=== PATIENT | male | born 1935 | race Caucasian/White ===

== ENCOUNTER 2019-04-04 07:55 | Day surgery (SDC) | payer OTHER ==
--- NOTE | 2019-04-01 13:09 | RAD REPORT ---
EXAM DESCRIPTION: RAD - Chest Pa And Lat (2 Views) - 04/01/2019 1:03 pm CLINICAL HISTORY: left heart cath Chest pain. COMPARISON: Chest Pa And Lat (2 Views) dated 06/29/2018; Chest Pa And Lat (2 Views) dated 10/05/2017; Chest Pa And Lat (2 Views) dated 09/22/2017; Chest Pa And Lat (2 Views) dated 04/21/2017 FINDINGS: The lungs are clear. The heart is mildly enlarged in size. No displaced fractures. Aortic atherosclerosis. IMPRESSION: Mild cardiomegaly.
[2019-04-01 13:22] LABS: Absolute Lymphocytes (CBC) 1.4 K/uL (0.7-4.9); Basophils % 0.8 % (0-1.3); Eosinophils % 2.9 % (0-4.4); Hematocrit 43.1 % (39.6-49.0); Lymphocytes % 20.8 % (15.3-44.8); MPV 8.5 fL (7.6-11.3); RBC Red Blood Cell Count 4.89 M/uL (4.33-5.43)
[2019-04-01 13:30] LABS: Protime INR 0.93
[2019-04-01 13:37] LABS: Potassium 4.3 mmol/L (3.5-5.1)
--- NOTE | 2019-04-02 09:59 | EKG ---
Test Date: 2019-04-01 Test Time: 12:57:46 Gas Meter Reader: [place] MEASUREMENT RESULTS: Intervals: Rate: 61 MS: 166 QRSD: 84 QT: 434 QTc: 436 Proctor: P: 60 MS: 166 QRS: 31 T: 31 INTERPRETIVE STATEMENTS: Normal sinus rhythm Normal ECG Compared to ECG 11/08/2016 22:22:53 Left bundle-branch block no longer present Electronically Signed On 04-02-19 09:58:03 CDT by Nik Burnett
[2019-04-04 09:32] VITALS: TEMP 97.2
[2019-04-04] MEDS ORDERED: NA CHLORIDE 0.9% 500 ML ONE (09:32)
[2019-04-04] MEDS ORDERED: HEPA 1000U/500MLS 2,000 UNIT/1,000 ML BAG IV ONE (10:02)
[2019-04-04] MEDS ORDERED: HEPARIN 5000 UNIT/ML 1 ML VIAL ONE (10:09)
[2019-04-04] MEDS ORDERED: NICARDIPINE HCL 25 MG/10 ML IV ONE (10:10)
[2019-04-04] MEDS ORDERED: ATROPINE SULF 1 MG/10 ML SYR IV ONE (10:10)
[2019-04-04] MEDS ORDERED: NITROGLYCERIN 100 MCG/ML SYR (for cath lab use only) IV ONE (10:10)
[2019-04-04] MEDS ORDERED: MIDAZOLAM HCL 2 MG/2 ML INJ ONE (10:10)
[2019-04-04] MEDS ORDERED: FENTANYL CITR 100 MCG/2 ML ONE (10:10)
[2019-04-04] MEDS ORDERED: NA CHLORIDE 0.9% 0 ML ONE (10:10)
[2019-04-04 12:23] VITALS: O2SAT 97
[2019-04-04 13:28] VITALS: BP 128/50
--- NOTE | 2019-04-04 22:17 | OP ---
Surgeon: Nik Burnett MD Primary Care Doctor: Alber Whitfield MD Procedures: Left heart catheterization with coronary and left ventricular angiography. Findings: The patient's right coronary stent placed before 2009 is widely patent. There is 20% to 3 0% in-stent restenosis, not progressive. Has normal left main, normal LAD. His proximal circumflex and obtuse marginal are free of any disease. The very distal portion of the circumflex is totally oc cluded. It is a 1 mm vessel and not amenable to stenting. Procedure In Detail: The patient was brought to the cardiac cathode ray tube assembler in a fasting state, sedated wit h Versed and fentanyl. Prepared and draped in usual sterile fashion. Right radial approach was used after anesthetizing the skin over the right radial artery with 1% lidocaine. We entered the artery with a 21-gauge needle, cannulated it with a 0.021 inch diameter guidewire and placed a 6-Beninese Teru mo sheath. As soon as the sheath was in place, it was flushed and the radial cocktail consisting of nicardipine, heparin, and nitroglycerin. We guided a TIG catheter into the ascending aorta using flu oroscopy and a short radius J-tip. We angiogrammed right coronary, left coronary, and left ventricle , all with the same catheter. When the decision was made not to do any intervention, we removed the catheter over a J-wire, flushed the sheath, removed the sheath, and closed the arteriotomy using a TR band. Estimated Blood Loss: 5 cc. Repairing Calibrator: Annalisa Degroot. Recommendation: Continued medical therapy for CAD, hypertension, and dyslipidemia. ALEJANDRA/RASHAUN Voice ID: [id number] Report ID: [id number]
== END 2019-04-04 13:45 | disposition home or self-care (01) ==
LOC: CCL 07:55
PROVIDERS: ATTEND Internal Medicine
DX: I25.10 Atherosclerotic heart disease of native coronary artery without angina pectoris (principal); I25.82 Chronic total occlusion of coronary artery; T82.855A Stenosis of coronary artery stent, initial encounter; I10 Essential (primary) hypertension; E78.5 Hyperlipidemia, unspecified; Z95.5 Presence of coronary angioplasty implant and graft; Z87.891 Personal history of nicotine dependence; Z88.6 Allergy status to analgesic agent
CPT/HCPCS: 93005; 85025; 80048; 36415; 85610; 85730; 71046; 93458; C1893; J1644; J2250; J3010; J0583

== ENCOUNTER 2019-11-25 09:15 | Emergency (ER) | payer OTHER ==
[2019-11-25] MEDS ORDERED: DIAZEPAM 5 MG TABLET ONE (10:07)
[2019-11-25] MEDS ORDERED: HYDROCODONE/APAP 5/325 MG TAB ONE (10:08)
--- NOTE | 2019-11-25 10:34 | RAD REPORT ---
EXAM DESCRIPTION: RAD - Chest Single View - 11/25/2019 10:06 am CLINICAL HISTORY: cough, back pain Chest pain. COMPARISON: Chest Pa And Lat (2 Views) dated 04/01/2019; Chest Pa And Lat (2 Views) dated 06/29/2018; Chest Pa And Lat (2 Views) dated 10/05/2017; Chest Pa And Lat (2 Views) dated 09/22/2017 FINDINGS: Portable technique limits examination quality. Mild interstitial pulmonary edema. The heart is moderately enlarged with a tortuous atherosclerotic t horacic aorta. No displaced fractures. IMPRESSION: Mild CHF.
--- NOTE | 2019-11-25 12:34 | RAD REPORT ---
EXAM DESCRIPTION: CT - Angio Aorta For Dissection - 11/25/2019 12:20 pm CLINICAL HISTORY: Chest pain radiating to the back. right sided thoracic pain COMPARISON: No comparisons TECHNIQUE: CT angiography of the aorta was performed with MIPs. All CT scans are performed using dose optimization technique as appropriate and may include automated exposure control or mA/KV adjustment according to patient size. FINDINGS: A left aortic arch is present with normal branching pattern of the great vessels.No acute aortic finding is seen such as aneurysm, penetrating ulcer or dissection. The celiac axis, SMA, DON and renal arteries demonstrate moderate ostial plaquing but remain patent. No evidence of pulmonary embolism. Mild diffuse COPD is present. No nodule, mass or infiltrate. The liver demonstrates no focal mass or biliary dilatation.Cholecystectomy clips.The spleen, pancreas , adrenal glands and kidneys are within normal limits for arterial phase imaging. No bowel obstruction, free fluid or abscess.No pathologic enlarged lymphadenopathy identified. Moderate lower lumbar degenerative changes are present with postsurgical laminectomy noted at L4. Mil d 4 mm degenerative anterolisthesis is present of L4 on 5.Small fat containing left inguinal hernia. IMPRESSION: No acute aortic finding is demonstrated.
--- NOTE | 2019-11-25 12:43 | ER ---
Nurse's Notes [facility] Name: Severino Sawant Age: 84 yrs Sex: Male : 1935 Arrival Date: 11/25/2019 Time: 09:17 Bed 14 Private MD: Diagnosis: Strain of muscle and tendon of back wall of thorax Presentation: 11/24 09:28 Chief complaint: Patient states: R SHOULDER AND NECK MUSCLE TIGHTNESS x3 DAYS. bp Coronavirus screen: The patient has NOT traveled to a country currently being monitored by the [facility] within the last 14 days. The patient has NOT had contact with any known and/or suspected case of coronavirus. Proceed with normal triage procedures. Ebola Screen: No symptoms or risks identified at this time. Acute neurological deficit: none identified. Initial Sepsis Screen: Does the patient meet any 2 criteria? No. Patient's initial sepsis screen is negative. Does the patient have a suspected source of infection? No. Patient's initial sepsis screen is negative. Risk Assessment: Do you want to hurt yourself or someone else? Patient reports no desire to harm self or others. 09:28 Method Of Arrival: Ambulatory bp 09:28 Acuity: PHILL 4 bp Triage Assessment: 09:32 General: Appears in no apparent distress. comfortable, Behavior is calm, cooperative, bp appropriate for age. Pain: Complains of pain in back of neck and right scapular area. EENT: No deficits noted. Neuro: No deficits noted. Cardiovascular: No deficits noted. Respiratory: No deficits noted. GI: No signs and/or symptoms were reported involving the gastrointestinal system. : No signs and/or symptoms were reported regarding the genitourinary system. Derm: No deficits noted. Musculoskeletal: Circulation, motion, and sensation intact. Range of motion: intact in all extremities. Historical: - Allergies: 09:32 Morphine; bp - Home Meds: 09:32 fluticasone inhalation inhalation [Active]; gabapentin 600 mg Oral tab every 6 hours bp [Active]; doxazosin 2 mg oral tab [Active]; amlodipine 5 mg oral tab 1 tab once daily [Active]; levothyroxine 112 mcg oral tab 1 tab once daily [Active]; Lasix 40 mg Oral tab 1 tab once daily [Active]; aspirin 81 mg Oral chew 2 tabs once daily [Active]; - PMHx: 09:32 Hypertension; Hypothyroidism; UT; neuropathy; reflux; bp - Immunization history:: Adult Immunizations up to date. - Social history:: Smoking status: unknown. Screenin:33 Abuse screen: Denies threats or abuse. Denies injuries from another. Nutritional bp screening: No deficits noted. Tuberculosis screening: No symptoms or risk factors identified. Fall Risk None identified. Assessment: 09:33 General: SEE TRIAGE NOTE. Neuro: Level of Consciousness is awake, alert, obeys bp commands, Oriented to person, place, time, situation, Appropriate for age Gait is steady. 10:10 Reassessment: CXR COMPLETED, DISPO PENDING. bp 11:00 Reassessment: MARKED RELIEF OF S/S, PT SLEEPING. bp 12:04 Reassessment: PT RESTING QUIETLY, NO ACUTE S/S. CT PENDING. bp 12:26 Reassessment: PT RETURNED FROM CT. bp 13:14 Reassessment: PT D/C HOME AMBULATORY, DX WITH MUSCLE STRAIN. bp Vital Signs: 09:28 BP 160 / 55; Pulse 78; Resp 16; Temp 98.6; Pulse Ox 99% ; bp 10:04 BP 160 / 55 LA; Pulse 65; Resp 16; Pulse Ox 99% ; bp 10:07 BP 160 / 64 RA; Pulse 73; Resp 16; Pulse Ox 95% ; bp 11:06 BP 155 / 55; Pulse 63; Resp 16; Temp 98.3(TE); Pulse Ox 98% on R/A; mh5 12:04 BP 152 / 62; Pulse 64; Resp 16; Pulse Ox 96% ; bp 13:14 BP 158 / 53; Pulse 59; Resp 16; Temp 98.3; Pulse Ox 95% ; bp ED Course: 09:17 Patient arrived in ED. ag5 09:28 Jj Braun, RN is Primary Nurse. bp 09:29 Triage completed. bp 09:30 Yordy Salazar PA is PHCP. jmm 09:30 Beka Sanchez MD is Attending Physician. jmm 09:32 Arm band placed on. bp 09:33 Patient has correct armband on for positive identification. Bed in low position. Call bp light in reach. Side rails up X2. 11:44 Inserted saline lock: 18 gauge in right antecubital area, using aseptic technique. mh5 Blood collected. 11:45 Creatinine for Radiology [facility] 13:14 No provider procedures requiring assistance completed. IV discontinued, intact, bp bleeding controlled, No redness/swelling at site. Pressure dressing applied. Administered Medications: 10:00 Drug: [place] 5 mg-325 mg 1 tabs Route: PO; bp 11:33 Follow up: Response: Marked relief of symptoms; Pain is decreased bp 10:00 Drug: Valium 5 mg Route: PO; bp 11:34 Follow up: Response: Pain is decreased bp Outcome: 12:42 Discharge ordered by . marcial 13:16 Discharged to home ambulatory. bp 13:16 Condition: stable 13:16 Discharge instructions given to patient, Instructed on discharge instructions, follow up and referral plans. medication usage, Demonstrated understanding of instructions, follow-up care, medications, Prescriptions given X 1. 13:16 Patient left the ED. bp Signatures: Yordy Salazar PA PA jmm Martinez, Maria [facility] Jj Braun, RN RN Charles Zhao 5
--- NOTE | 2019-11-25 12:43 | EDPHYS ---
Physician Documentation [facility] Name: Severino Sawant Age: 84 yrs Sex: Male : 1935 Arrival Date: 11/25/2019 Time: 09:17 Bed 14 Private MD: ED Physician Beka Sanchez HPI: 11/24 09:34 This 84 yrs old Male presents to ER via Ambulatory with complaints of Cough, jmm Neck Pain, >24Hrs Old, Hand Pain. 09:34 The patient presents with pain that is acute. The symptoms are located in the right jmm scapular area. Onset: The symptoms/episode began/occurred 3 day(s) ago. Associated signs and symptoms: Pertinent negatives: abdominal pain, chest pain, fever. This is an 84 year old male with a history of HTN that presents to the ED with complaints of right upper back pain which began after a coughing fit 3 days ago. Patient states this occurs regularly about once a year. Patient also complaints of pain to his right thumb. 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 Patient denies chest pain, denies "tearing" sensation. Pain is worsened with movement of his right arm. . Historical: - Allergies: 09:32 Morphine; bp - Home Meds: 09:32 fluticasone inhalation inhalation [Active]; gabapentin 600 mg Oral tab every 6 hours bp [Active]; doxazosin 2 mg oral tab [Active]; amlodipine 5 mg oral tab 1 tab once daily [Active]; levothyroxine 112 mcg oral tab 1 tab once daily [Active]; Lasix 40 mg Oral tab 1 tab once daily [Active]; aspirin 81 mg Oral chew 2 tabs once daily [Active]; - PMHx: 09:32 Hypertension; Hypothyroidism; PR; neuropathy; reflux; bp - Immunization history:: Adult Immunizations up to date. - Social history:: Smoking status: unknown. ROS: 09:34 Constitutional: Negative for fever, chills, and weight loss, Cardiovascular: Negative jmm for chest pain, palpitations, and edema, Respiratory: Negative for shortness of breath, cough, wheezing, and pleuritic chest pain. 09:34 Back: Positive for pain with movement. 09:34 MS/extremity: Positive for pain. 09:34 All other systems are negative. Exam: 09:34 Constitutional: This is a well developed, well nourished patient who is awake, alert, jmm and in no acute distress. Head/Face: atraumatic. Eyes: EOMI, no conjunctival erythema appreciated ENT: Moist Mucus Membranes Neck: Trachea midline, Supple Chest/axilla: Normal chest wall appearance and motion. Cardiovascular: Regular rate and rhythm. No edema appreciated Respiratory: Normal respirations, no respiratory distress appreciated Abdomen/GI: Non distended, soft 09:34 Back: pain, that is moderate, ROM is painful, CVA tenderness, is absent, vertebral tenderness, is not appreciated. 09:34 Musculoskeletal/extremity: ROM: intact in all extremities. 09:34 Neuro: Orientation: is normal, Mentation: is normal, Memory: is normal. 09:34 Psych: Behavior/mood is pleasant, cooperative. Vital Signs: 09:28 BP 160 / 55; Pulse 78; Resp 16; Temp 98.6; Pulse Ox 99% ; bp 10:04 BP 160 / 55 LA; Pulse 65; Resp 16; Pulse Ox 99% ; bp 10:07 BP 160 / 64 RA; Pulse 73; Resp 16; Pulse Ox 95% ; bp 11:06 BP 155 / 55; Pulse 63; Resp 16; Temp 98.3(TE); Pulse Ox 98% on R/A; mh5 12:04 BP 152 / 62; Pulse 64; Resp 16; Pulse Ox 96% ; bp 13:14 BP 158 / 53; Pulse 59; Resp 16; Temp 98.3; Pulse Ox 95% ; bp MDM: 09:34 Patient medically screened. piedad 12:41 Data reviewed: vital signs, nurses notes. Counseling: I had a detailed discussion with [facility] the patient and/or guardian regarding: the historical points, exam findings, and any diagnostic results supporting the discharge/admit diagnosis, radiology results, the need for outpatient follow up, to return to the emergency department if symptoms worsen or persist or if there are any questions or concerns that arise at home. ED course: Decreased pain in the ED. CTA negative. Patient advised to follow up with pcp and otherwise given strict return precautions. Patient understood and agrees with the plan of care. . 11/24 11:16 Order name: Creatinine for Radiology [facility] 11/24 11:42 Order name: Creatinine (Radiology Only); Complete Time: 11:43 [facility] 11/24 09:52 Order name: Chest Single View XRAY [facility] 11/24 10:39 Order name: RAD; Complete Time: 11:41 [facility] 11/24 11:16 Order name: CT Aorta for Dissection [facility] 11/24 12:37 Order name: CT; Complete Time: 13:13 [facility] 11/24 09:52 Order name: Bilateral blood pressure; Complete Time: 10:10 [facility] Administered Medications: 10:00 Drug: [place] 5 mg-325 mg 1 tabs Route: PO; bp 11:33 Follow up: Response: Marked relief of symptoms; Pain is decreased bp 10:00 Drug: Valium 5 mg Route: PO; bp 11:34 Follow up: Response: Pain is decreased bp Disposition: 16:29 Co-signature as Attending Physician, Beka Sanchez MD I agree with the assessment and piedad plan of care. Disposition: 11/25/19 12:42 Discharged to Home. Impression: Strain of muscle and tendon of back wall of thorax. - Condition is Stable. - Discharge Instructions: Thoracic Strain. - Prescriptions for orphenadrine citrate 100 mg Oral Tablet Sustained Release - take 1 tablet by ORAL route 2 times per day As needed; 20 tablet. - Medication Reconciliation Form, Thank You Letter, Antibiotic Education, Prescription Opioid Use form. - Follow up: Private Physician; When: 2 - 3 days; Reason: Recheck today's complaints, Continuance of care, Re-evaluation by your physician. Signatures: Dispatcher [employer] [facility] Beka Sanchez MD MD cha Mickail, Joel, PA PA [facility] Jj Braun, RN RN bp Corrections: (The following items were deleted from the chart) 13:16 12:42 11/25/2019 12:42 Discharged to Home. Impression: Strain of muscle and tendon of bp back wall of thorax. Condition is Stable. Forms are Medication Reconciliation Form, Thank You Letter, Antibiotic Education, Prescription Opioid Use. Follow up: Private Physician; When: 2 - 3 days; Reason: Recheck today's complaints, Continuance of care, Re-evaluation by your physician. [facility]
[2019-11-25 13:43] VITALS: TEMP 98.3
[2019-11-25 13:46] VITALS: BP 158/53; O2SAT 95
== END 2019-11-25 13:16 | disposition home or self-care (01) ==
LOC: ER 09:15
DX: S29.012A Strain of muscle and tendon of back wall of thorax, initial encounter (principal); X58.XXXA Exposure to other specified factors, initial encounter; I10 Essential (primary) hypertension; E03.9 Hypothyroidism, unspecified; I25.2 Old myocardial infarction
CPT/HCPCS: 36415; 71275; 74175; 71045; 99284; Q9967

== ENCOUNTER 2020-06-26 06:18 | Day surgery (SDC) | payer OTHER ==
[2020-06-21 15:48] LABS: Absolute Lymphocytes (CBC) 1.5 K/uL (0.7-4.9); Basophils % 0.6 % (0-1.3); Hematocrit 38.1 % (39.6-49.0); Lymphocytes % 20.8 % (15.3-44.8); RBC Red Blood Cell Count 4.39 M/uL (4.33-5.43)
[2020-06-21 15:51] LABS: Protime INR 0.97
[2020-06-21 15:56] LABS: Potassium 4.1 mmol/L (3.5-5.1)
--- NOTE | 2020-06-22 00:24 | RAD REPORT ---
EXAM DESCRIPTION: RAD - Chest Pa And Lat (2 Views) - 06/21/2020 10:52 pm CLINICAL HISTORY: preop Chest pain. COMPARISON: Chest Single View dated 11/25/2019; Chest Pa And Lat (2 Views) dated 04/01/2019; Chest Pa A nd Lat (2 Views) dated 06/29/2018; Chest Pa And Lat (2 Views) dated 10/05/2017 FINDINGS: Linear opacities are present in the right middle lobe which may represent areas of atelect asis. The lungs are otherwise mildly emphysematous. The heart is upper limit normal in size. No displ aced fractures. Aortic atherosclerosis.
--- NOTE | 2020-06-22 11:40 | EKG ---
Test Date: 2020-06-21 Test Time: 16:18:14 Tube Molder Fiberglass: SUNIL MEASUREMENT RESULTS: Intervals: Rate: 64 UT: 172 QRSD: 146 QT: 470 QTc: 484 Gillespie: P: 55 UT: 172 QRS: 6 T: 60 INTERPRETIVE STATEMENTS: Sinus rhythm with premature supraventricular complexes Left bundle branch block Abnormal ECG Compared to ECG 04/01/2019 12:57:46 Atrial premature complex(es) now present Left bundle-branch block now present Electronically Signed On 06-22-20 11:37:34 CDT by Jet Tadeo
[2020-06-26] MEDS ORDERED: HEPA 1000U/500MLS 1,000 UNIT/500 ML BAG IV ONE (06:52)
[2020-06-26] MEDS ORDERED: LIDOCAINE 1% 20 ML MDV ONE (06:53)
[2020-06-26] MEDS ORDERED: NA CHLORIDE 0.9% 500 ML ONE (07:02)
[2020-06-26] MEDS ORDERED: FENTANYL CITR 100 MCG/2 ML ONE (07:21)
[2020-06-26] MEDS ORDERED: MIDAZOLAM HCL 2 MG/2 ML INJ ONE (07:21)
[2020-06-26] MEDS ORDERED: ATROPINE SULF 1 MG/10 ML SYR IV ONE (07:21)
--- NOTE | 2020-06-26 09:29 | OP ---
Surgeon: Jet Tadeo MD Corporate Director Of Pharmacy: Mikie Holm. Reason For Admission: To the [facility] as an outpatient was cerebrovascular disease with positive car otid Doppler. The patient had a selective bilateral carotid angiogram. Indications: He is 85-year-old, has a history of hypertension, dyslipidemia, coronary artery disease , and cerebral vascular disease with 50 to 69% stenosis in the left common and left internal carotid artery. Scheduled for a selective angiogram. Description Of Procedure: Brought to the photofinishing laboratory worker as an outpatient, prepped and draped in routine st erile fashion. Given Versed for sedation. A 6-Chinese sheath was introduced in the right common femo ral artery successfully using the Seldinger technique and 10 cc of xylocaine. A JL4 catheter was use d to select both common carotid arteries. He was found to have a normal common carotid bilaterally a nd normal external carotid bilaterally. The left internal carotid had a long smooth 60% stenosis. T here were no complications. Blood Loss: 5 mL. Postoperative Diagnosis: Cerebrovascular disease, moderate 60%, left ICA. Plan: To continue medical therapy. Anesthesia: Total conscious sedation was 30 minutes. Angiography in the right common iliac artery was normal. Angio-Seal was used to close the case. The patient will be at bedrest for 2 hours. He will go home after that. Continue medical therapy as is. I will see him in the office in the next 2 weeks. CARLA/RASHAUN Voice ID: [id number] Report ID: [id number]
[2020-06-26 10:07] VITALS: BP 150/52; TEMP 97.8; O2SAT 96
== END 2020-06-26 09:57 | disposition home or self-care (01) ==
LOC: CCL 06:18
DX: I65.22 Occlusion and stenosis of left carotid artery (principal); I25.10 Atherosclerotic heart disease of native coronary artery without angina pectoris; I10 Essential (primary) hypertension; E78.5 Hyperlipidemia, unspecified; Z88.6 Allergy status to analgesic agent; Z20.828 Contact with and (suspected) exposure to other viral communicable diseases
CPT/HCPCS: 93005; 85025; 80048; 36415; 85610; 85730; 71046; 36222; U0002; C1893; C1760; J2250; J3010; J7040; J1644

== ENCOUNTER 2021-06-13 23:45 | Emergency (ER) | payer OTHER ==
[2021-06-14 00:16] LABS: Absolute Lymphocytes (CBC) 2.1 K/uL (0.7-4.9); Basophils % 0.7 % (0-1.3); Hematocrit 42.2 % (39.6-49.0); Lymphocytes % 30.6 % (15.3-44.8); MPV 8.3 fL (7.6-11.3); RBC Red Blood Cell Count 4.81 M/uL (4.33-5.43)
[2021-06-14 00:18] LABS: Protime INR 0.9
[2021-06-14 00:43] LABS: ALT/SGPT 25 U/L (12-78); AST/SGOT 18 U/L (15-37); Albumin 3.6 g/dL (3.4-5.0); Alkaline Phosphatase 107 U/L (45-117); BUN Blood Urea Nitrogen 11 mg/dL (7-18); Bicarbonate 32 mmol/L (21-32); Bilirubin Direct 0.1 mg/dL (0-0.2); Bilirubin Total 0.3 mg/dL (0.2-1.0); Glucose Level 110 mg/dL (74-106); Magnesium 2.4 mg/dL (1.8-2.4); NT PRO-BNP 1070 pg/mL (<450); Potassium 3.7 mmol/L (3.5-5.1); Protein, Total 7.7 g/dL (6.4-8.2); Sodium Level 144 mmol/L (136-145); Troponin (Emerg Dept Use Only) < 0.02 ng/mL (0.0-0.045)
[2021-06-14] MEDS ORDERED: METOCLOPRAMIDE 10 MG/2mL INJ ONE (00:50)
[2021-06-14] MEDS ORDERED: DIPHENHYDRAMINE 50 MG/ML VIAL ONE (00:50)
[2021-06-14] MEDS ORDERED: ACETAMINOPHEN 500 MG TAB ONE (00:51)
[2021-06-14 01:18] LABS: Urine Blood Negative (Negative); Urine Glucose Negative (Negative); Urine Protein Negative (Negative); Urine Specific Gravity 1.015 (1.005-1.030); Urine pH 7.5 (5.0-7.0)
--- NOTE | 2021-06-14 01:40 | EDPHYS ---
Physician Documentation [facility] Name: Severino Sawant Age: 86 yrs Sex: Male : 1935 Arrival Date: 06/13/2021 Time: 23:46 Bed 6 Private MD: ED Physician Elpidio Plaza HPI: 06/14 00:20 This 86 yrs old Male presents to ER via EMS with complaints of High Blood mh7 Pressure. Headache.. 00:20 The patient has elevated blood pressure and discovered this at home, with a home mh7 device. Onset: The symptoms/episode began/occurred 2 day(s) ago. Modifying factors: The symptoms are aggravated by Nothing, The symptoms are alleviated by prescription meds, calcium channel aurora. Associated signs and symptoms: Pertinent positives: dizziness, headache, lightheadedness, Pertinent negatives: chest pain, dyspnea, nausea, visual changes, vomiting, weakness. Severity of symptoms: At its worst the blood pressure was 230 mm Hg, in the emergency department the blood pressure is improved, mildly. The patient has experienced similar episodes in the past, multiple times. Historical: - Allergies: 06/13 23:57 NKDA; wg - Home Meds: 23:57 amlodipine 5 mg tab 1 tab once daily [Active]; Lasix 40 mg Oral tab 1 tab once daily wg [Active]; doxazosin 2 mg Oral tab [Active]; - PMHx: 23:57 Hypertension; neuropathy; AK; wg - Immunization history:: Adult Immunizations up to date. - Social history:: Smoking status: Patient denies any tobacco usage or history of. ROS: 06/14 00:20 Constitutional: Negative for fever, chills, and weight loss, Eyes: Negative for injury, mh7 pain, redness, and discharge, ENT: Negative for injury, pain, and discharge, Neck: Negative for injury, pain, and swelling, Cardiovascular: Negative for chest pain, palpitations, and edema, Respiratory: Negative for shortness of breath, cough, wheezing, and pleuritic chest pain, Abdomen/GI: Negative for abdominal pain, nausea, vomiting, diarrhea, and constipation, Back: Negative for injury and pain, : Negative for injury, bleeding, discharge, and swelling, MS/Extremity: Negative for injury and deformity, Skin: Negative for injury, rash, and discoloration, Psych: Negative for depression, anxiety, suicide ideation, homicidal ideation, and hallucinations, Allergy/Immunology: Negative for hives, rash, and allergies, Endocrine: Negative for neck swelling, polydipsia, polyuria, polyphagia, and marked weight changes, Hematologic/Lymphatic: Negative for swollen nodes, abnormal bleeding, and unusual bruising. Exam: 00:20 Constitutional: This is a well developed, well nourished patient who is awake, alert, mh7 and in no acute distress. Head/Face: Normocephalic, atraumatic. Eyes: Pupils equal round and reactive to light, extra-ocular motions intact. Lids and lashes normal. Conjunctiva and sclera are non-icteric and not injected. Cornea within normal limits. Periorbital areas with no swelling, redness, or edema. Neck: Trachea midline, no thyromegaly or masses palpated, and no cervical lymphadenopathy. Supple, full range of motion without nuchal rigidity, or vertebral point tenderness. No Meningismus. Chest/axilla: Normal chest wall appearance and motion. Nontender with no deformity. No lesions are appreciated. Cardiovascular: Regular rate and rhythm with a normal S1 and S2. No gallops, murmurs, or rubs. Normal PMI, no JVD. No pulse deficits. Respiratory: Lungs have equal breath sounds bilaterally, clear to auscultation and percussion. No rales, rhonchi or wheezes noted. No increased work of breathing, no retractions or nasal flaring. Abdomen/GI: Soft, non-tender, with normal bowel sounds. No distension or tympany. No guarding or rebound. No evidence of tenderness throughout. Back: No spinal tenderness. No costovertebral tenderness. Full range of motion. Skin: Warm, dry with normal turgor. Normal color with no rashes, no lesions, and no evidence of cellulitis. MS/ Extremity: Pulses equal, no cyanosis. Neurovascular intact. Full, normal range of motion. Neuro: Awake and alert, GCS 15, oriented to person, place, time, and situation. Cranial nerves II-XII grossly intact. Motor strength 5/5 in all extremities. Sensory grossly intact. Cerebellar exam normal. Normal gait. Psych: Awake, alert, with orientation to person, place and time. Behavior, mood, and affect are within normal limits. Vital Signs: 06/13 23:53 BP 239 / 72; Pulse 75; Resp 18; Temp 98.9; Pulse Ox 97% on R/A; Weight 72.57 kg; Height wg 5 ft. 8 in. (172.72 cm); Pain 5/10; 06/14 00:23 BP 166 / 82; Pulse 58; Resp 18; Pulse Ox 100% on R/A; Pain 5/10; wg 00:36 BP 200 / 92; Pulse 72; Resp 18; Pulse Ox 100% on R/A; wg 01:26 BP 172 / 44; Pulse 62; Resp 18; Pulse Ox 97% ; Pain 2/10; wg 06/13 23:53 Body Mass Index 24.33 (72.57 kg, 172.72 cm) wg NIH Stroke Scale Scores: 00:12 NIHSS Score: 0 wg MDM: 01:37 Differential diagnosis: hypertensive crisis, Malignant HTN, intracerebral hemorrhage. [facility] Data reviewed: vital signs, nurses notes, old medical records, lab test result(s), cardiac enzymes, CBC, electrolytes, urinalysis, EKG, radiologic studies, CT scan, plain films. Data interpreted: Pulse oximetry: on room air is 97 %. Interpretation: normal. Counseling: I had a detailed discussion with the patient and/or guardian regarding: the historical points, exam findings, and any diagnostic results supporting the discharge/admit diagnosis, the presence of at least one elevated blood pressure reading (>120/80) during this emergency department visit, lab results, radiology results, the need for outpatient follow up, to return to the emergency department if symptoms worsen or persist or if there are any questions or concerns that arise at home. Response to treatment: the patient's symptoms have resolved after treatment, the patient's blood pressure is in an acceptable range, mental status has returned to baseline, the patient no longer shows bradycardia, the patient is not short of breath, the patient is not tachycardic, the patient's pain is gone, the patient's temperature has normalized. 01:40 Patient medically screened. 7 06/14 00:01 Order name: Basic Metabolic Panel; Complete Time: 00:44 06/14 00:01 Order name: CBC with Diff; Complete Time: 00:44 06/14 00:01 Order name: LFT's; Complete Time: 00:44 06/14 00:01 Order name: Magnesium; Complete Time: 00:44 06/14 00:01 Order name: NT PRO-BNP; Complete Time: 00:44 06/14 00:01 Order name: PT-INR; Complete Time: 00:44 06/14 00:01 Order name: Troponin (emerg Dept Use Only); Complete Time: 00:44 06/14 00:01 Order name: XRAY Chest (1 view) 06/14 00:01 Order name: EKG; Complete Time: 00:02 06/14 00:19 Order name: CT Head Brain wo Cont [facility] 06/14 01:18 Order name: Urine Dipstick-Ancillary; Complete Time: 01:19 EDMS 06/14 00:01 Order name: Cardiac monitoring; Complete Time: 00:11 06/14 00:01 Order name: EKG - Nurse/Tech; Complete Time: 00:11 06/14 00:01 Order name: IV Saline Lock; Complete Time: 00:11 06/14 00:01 Order name: Labs collected and sent; Complete Time: 00:11 06/14 00:01 Order name: O2 Per Protocol; Complete Time: 00:11 06/14 00:01 Order name: O2 Sat Monitoring; Complete Time: 00: 06/14 00:44 Order name: Urine Dipstick-Ancillary (obtain specimen); Complete Time: 01:00 [facility] Administered Medications: 00:30 Drug: Reglan (metoCLOPramide) 10 mg Route: IVP; Infused Over: 2 mins; Site: right antecubital; 00:30 Drug: Benadryl (diphenhydrAMINE) 25 mg Route: IVP; Infused Over: 2 mins; Site: right antecubital; 00:30 Drug: Tylenol 1000 mg Route: PO; Disposition Summary: 06/14/21 01:40 Discharge Ordered Location: Home [facility] Problem: an acute exacerbation [facility] Symptoms: have improved [facility] Condition: Stable [facility] Diagnosis - Essential (primary) hypertension 7 - Headache [facility] Followup: [facility] - With: Private Physician - When: 1 - 2 days - Reason: Worsening of condition, Recheck today's complaints, Continuance of care, Re-evaluation by your physician Followup: [facility] - With: Jet Tadeo MD - When: 1 - 2 days - Reason: Worsening of condition, Recheck today's complaints, Continuance of care, Re-evaluation by your physician Discharge Instructions: - Discharge Summary Sheet [facility] - General Headache Without Cause [facility] - Hypertension, Adult, [id number] [facility] Forms: - Medication Reconciliation Form [facility] - Thank You Letter 7 - Antibiotic Education 7 - Prescription Opioid Use [facility] NIH Stroke Scale - NIH Stroke Score Date: 06/14/2021 Time: 00:12 Total Score = 0 1a. Level of Consciousness (LOC) - 0(Alert) 1b. Level of Consciousness (LOC) (Month \T\ Age) - 0(Both) 1c. LOC Commands (Open \T\ Closes Eyes/Cattle Sorter) - 0(Both) 2. Best Gaze (Lateral Gaze Paresis) - 0(Normal) 3. Visual Field Loss - 0(No visual loss) 4. Facial Palsy - 0(Normal) 5a. Left Arm: Motor (10-second hold) - 0(No drift) 5b. Right Arm: Motor (10-second hold) - 0(No drift) 6a. Left Leg: Motor (5-second hold - always test supine) - 0(No drift) 6b. Right Leg: Motor (5-second hold - always test supine) - 0(No drift) 7. Limb Ataxia (finger/nose \T\ heel/daniel - test with eyes open) - 0(Absent) 8. Sensory Loss (pinprick arms/legs/face) - 0(Normal) 9. Best Language: Aphasia (description/naming/reading) - 0(No aphasia) 10. Dysarthria (speech clarity - read or repeat words) - 0(Normal) 11. Extinction and Inattention (visual/tactile/auditory/spatial/personal) - 0(No abnormality) Initials: Signatures: Dispatcher [employer] Elpidio Pineda MD MD 7 Jarvis Shane RN Asad Mendoza RN RN mr2 Corrections: (The following items were deleted from the chart) 01:45 01:44 PMHx: reflux; mr2 mr2 01:45 01:44 PMHx: Hypothyroidism; mr2 mr2
--- NOTE | 2021-06-14 01:40 | ER ---
Nurse's Notes [facility] Name: Severino Sawant Age: 86 yrs Sex: Male : 1935 Arrival Date: 06/13/2021 Time: 23:46 Bed 6 Private MD: Diagnosis: Essential (primary) hypertension;Headache Presentation: 06/13 23:53 Chief complaint: Patient states: Pt states he has had a headache for several hours and wg took his BP at home and it was "very high". Pt complaining of a 5/10 headache. Denies SOB, CP, N/V/D, dizziness, Abd pain. EMS stated they got a BP of 250/100 in the field. Coronavirus screen: Vaccine status: Patient reports receiving the 2nd dose of the covid vaccine. Date November 2020 Client reports previous positive COVID test result. Date of collection: September 2020. Ebola Screen: Patient negative for fever greater than or equal to 101.5 degrees Fahrenheit, and additional compatible Ebola Virus Disease symptoms Patient denies exposure to infectious person. Patient denies travel to an Ebola-affected area in the 21 days before illness onset. Initial Sepsis Screen: Does the patient meet any 2 criteria? No. Patient's initial sepsis screen is negative. Does the patient have a suspected source of infection? No. Patient's initial sepsis screen is negative. Risk Assessment: Do you want to hurt yourself or someone else? Patient reports no desire to harm self or others. Onset of symptoms was June 13, 2021 at 20:00. 23:53 Method Of Arrival: EMS: [facility] 23:53 Acuity: PHILL 3 wg Triage Assessment: 23:57 General: Appears uncomfortable, well groomed, well developed, Behavior is calm, wg cooperative, appropriate for age. Pain: Complains of pain in headache Pain currently is 5 out of 10 on a pain scale. Quality of pain is described as aching, Pain began 4 hours ago. Historical: - Allergies: 23:57 NKDA; wg - Home Meds: 23:57 amlodipine 5 mg tab 1 tab once daily [Active]; Lasix 40 mg Oral tab 1 tab once daily wg [Active]; doxazosin 2 mg Oral tab [Active]; - PMHx: 23:57 Hypertension; neuropathy; DC; wg - Immunization history:: Adult Immunizations up to date. - Social history:: Smoking status: Patient denies any tobacco usage or history of. Screenin/24 00:12 Abuse screen: Denies threats or abuse. Denies injuries from another. Nutritional wg screening: No deficits noted. Tuberculosis screening: No symptoms or risk factors identified. Fall Risk Assessment: 00:12 General:. Cardiovascular: Denies chest pain, diaphoresis, lightheadedness, nausea, wg palpitations, shortness of breath, syncope, Patient's skin is warm and dry. Rhythm is sinus rhythm Chest pain is denied. Respiratory: No deficits noted. Breath sounds are clear bilaterally. Denies cough, shortness of breath. Vital Signs: 06/13 23:53 BP 239 / 72; Pulse 75; Resp 18; Temp 98.9; Pulse Ox 97% on R/A; Weight 72.57 kg; Height 5 ft. 8 in. (172.72 cm); Pain 5/10; 06/14 00:23 BP 166 / 82; Pulse 58; Resp 18; Pulse Ox 100% on R/A; Pain 5/10; wg 00:36 BP 200 / 92; Pulse 72; Resp 18; Pulse Ox 100% on R/A; wg 01:26 BP 172 / 44; Pulse 62; Resp 18; Pulse Ox 97% ; Pain 2/10; wg 06/13 23:53 Body Mass Index 24.33 (72.57 kg, 172.72 cm) Vitals: 00:12 Cardiac Rhythm Assessment Regular Sinus rhythm. wg NIH Stroke Scale Scores: 00:12 NIHSS Score: 0 ED Course: 06/13 23:46 Patient arrived in ED. em 23:57 Elpidio Plaza MD is Attending Physician. 7 23:57 Triage completed. wg 23:57 Arm band placed on right wrist. EKG completed in triage. Results shown to MD. EKG wg completed in triage. Results shown to MD. 06/14 00:11 Inserted saline lock: 20 gauge in right antecubital area, using aseptic technique. wg 00:24 Jarvis Shane, RN is Primary Nurse. wg 00:30 XRAY Chest (1 view) In Process Unspecified. EDMS 00:39 No provider procedures requiring assistance completed. Initial lab(s) drawn, by jason driver sent to lab. Inserted. 01:12 CT Head Brain wo Cont In Process Unspecified. EDMS 01:38 Jet Tadeo MD is Referral Physician. mh7 01:44 IV discontinued. mr2 01:45 Patient has correct armband on for positive identification. industrial ecology technician on. Pulse mr2 ox on. NIBP on. Administered Medications: 00:30 Drug: Reglan (metoCLOPramide) 10 mg Route: IVP; Infused Over: 2 mins; Site: right wg antecubital; 00:30 Drug: Benadryl (diphenhydrAMINE) 25 mg Route: IVP; Infused Over: 2 mins; Site: right wg antecubital; 00:30 Drug: Tylenol 1000 mg Route: PO; wg Outcome: 01:40 Discharge ordered by . mh7 01:43 Discharged to home with family. mr2 01:43 Condition: stable 01:43 Discharge instructions given to patient. 02:08 Patient left the ED. mr2 NIH Stroke Scale - NIH Stroke Score Date: 06/14/2021 Time: 00:12 Total Score = 0 1a. Level of Consciousness (LOC) - 0(Alert) 1b. Level of Consciousness (LOC) (Month \\T\\ Age) - 0(Both) 1c. LOC Commands (Open \\T\\ Closes Eyes/Courier Driver) - 0(Both) 2. Best Gaze (Lateral Gaze Paresis) - 0(Normal) 3. Visual Field Loss - 0(No visual loss) 4. Facial Palsy - 0(Normal) 5a. Left Arm: Motor (10-second hold) - 0(No drift) 5b. Right Arm: Motor (10-second hold) - 0(No drift) 6a. Left Leg: Motor (5-second hold - always test supine) - 0(No drift) 6b. Right Leg: Motor (5-second hold - always test supine) - 0(No drift) 7. Limb Ataxia (finger/nose \\T\\ heel/daniel - test with eyes open) - 0(Absent) 8. Sensory Loss (pinprick arms/legs/face) - 0(Normal) 9. Best Language: Aphasia (description/naming/reading) - 0(No aphasia) 10. Dysarthria (speech clarity - read or repeat words) - 0(Normal) 11. Extinction and Inattention (visual/tactile/auditory/spatial/personal) - 0(No abnormality) Initials: wg Signatures: Dispatcher [employer] Abundio Kerr RN RN Elpidio Warren MD MD 7 Jarvis Shane RN wg Reynard, Mike, RN RN mr2 Didier Harper RN RN cw2 Corrections: (The following items were deleted from the chart) 01:45 01:44 PMHx: reflux; mr2 mr2 01:45 01:44 PMHx: Hypothyroidism; mr2 mr2
[2021-06-14 04:33] VITALS: TEMP 98.9
[2021-06-14 04:37] VITALS: BP 172/44; O2SAT 97
--- NOTE | 2021-06-14 17:11 | RAD REPORT ---
EXAM DESCRIPTION: Taisha Single View06/14/2021 12:30 am CLINICAL HISTORY: PAIN COMPARISON: 06/22/2020 FINDINGS: Single frontal radiograph view of the chest. Cardiomediastinal silhouette: Atherosclerotic calcification of the thoracic aorta. Cardiomegaly. Lead s overlie the chest. Lungs: No consolidation, pneumothorax, or pleural effusion. Low lung volumes. Bones: Degenerative change of the shoulders and spine. Upper abdomen: No abnormality identified. IMPRESSION: 1. No acute pulmonary process identified. Electronically signed by: Didier Millan 06/14/2021 12:47 AM CDT Due to temporary technical issues with the PACS/Fluency reporting system, reports are being signed by the in house radiologists without review as a courtesy to insure prompt reporting. The interpreting radiologist is fully responsible for the content of the report.
--- NOTE | 2021-06-14 18:10 | RAD REPORT ---
EXAM DESCRIPTION: CT - Head Brain Wo Cont - 06/14/2021 6:42 am CLINICAL HISTORY: HEADACHE COMPARISON: CT head November 08, 2016 TECHNIQUE: Multiple helical axial tomographic images were obtained of the head without intravenous c ontrast. This exam was performed according to our departmental dose-optimization program, which inclu roslyn automated exposure control, adjustment of the mA and/or kV according to patient size and/or use o f iterative reconstruction technique. FINDINGS: Generalized brain volume loss noted. There is hypoattenuation in the cerebral matter which is nonspecific but suggestive of chronic microvascular ischemic changes. There is no acute intracran ial hemorrhage. No mass. No midline shift. No ventriculomegaly. Saucedo-white matter differentiation is maintained. Paranasal sinuses are clear. Mastoid air cells and middle ear spaces are clear. Changes of lens repla cement noted. Osseous structures are unremarkable. Surrounding soft tissues are unremarkable. IMPRESSION: 1. No acute intracranial process. 2. Findings suggestive of chronic microvascular ischemic changes. Electronically signed by: Mikie Dee MD 06/14/2021 1:28 AM CDT Due to temporary technical issues with the PACS/Fluency reporting system, reports are being signed by the in house radiologists without review as a courtesy to insure prompt reporting. The interpreting radiologist is fully responsible for the content of the report.
== END 2021-06-14 02:08 | disposition home or self-care (01) ==
LOC: ER 23:45
DX: I10 Essential (primary) hypertension (principal); I25.2 Old myocardial infarction
CPT/HCPCS: 93005; 85025; 80048; 36415; 83735; 85610; 80076; 81003; 84484; 83880; 70450; 71045; 96375; 96374; 99284; J2765; J1200

== ENCOUNTER 2023-01-16 15:37 | Inpatient (IN) | payer OTHER ==
--- OUTSIDE RECORDS SUMMARY | 2023-01-16 15:43 | XMS REPORT | Continuity of Care Document ---
:1935 Author Organization [facility] t Address [address] [place] [address] Care Team Providers Name Role Phone Alber Whitfield Primary Care Physician Curry Casiano Attending Clinician Unavailable Radha Ceron Attending Clinician Unavailable Noy Johnston Attending Clinician Unavailable Lidya Hartman Attending Clinician 2, [facility] Attending Clinician Unavailable LIDYA GERMAIN Attending Clinician Unavailable Dimitry JOHNSON, Wendy Thomason Attending Clinician Unavailable RADHA BURT Attending Clinician Unavailable Nida Gil MD Attending Clinician Radha Burt DO Attending Clinician DEEPAK LEAVITT Attending Clinician Unavailable Deepak Leavitt MD Attending Clinician Doctor Unassigned, Ovid Attending Clinician Unavailable ALLYSON CALHOUN Attending Clinician Unavailable Allyson Calhoun MD Attending Clinician Chavez Jennings Attending Clinician Unavailable Cheko Wesley Attending Clinician Unavailable Greg Attending Clinician Unavailable Curry Casiano Attending Clinician [phone] Shirin Rodriguez Attending Clinician SHIRIN MORE Attending Clinician Unavailable Donal TIRE MECHANICGraciela Allen Attending Clinician Pob, [facility] Main Attending Clinician Unavailable Monty JOHNSON, El Stark Attending Clinician Unavailable DOUG ANNA Attending Clinician Unavailable Felipe Dockery DO Attending Clinician Doug Anna MD Attending Clinician Radha JOHNSON, Delilah Garcia Attending Clinician Unavailable EVGENY UGALDE Attending Clinician Unavailable Devaughn Lynn MD Attending Clinician DEVAUGHN LYNN Attending Clinician Unavailable Provider, [facility] Attending Clinician Unavailable Laly Macias Attending Clinician LALY CABELLO Attending Clinician Unavailable Curry Casiano Admitting Clinician Unavailable Alber Whitfield Admitting Clinician Unavailable RADHA BURT Admitting Clinician Unavailable Radha Burt DO Admitting Clinician ALLYSON CALHOUN Admitting Clinician Unavailable Chavez Jennings Admitting Clinician Unavailable Greg Admitting Clinician Unavailable DOUG ANNA Admitting Clinician Unavailable Doug Anna MD Admitting Clinician Devaughn Lynn MD Admitting Clinician DEVAUGHN LYNN Admitting Clinician Unavailable Payers Payer Name Policy Type Policy Number Effective Date Expiration Date le[place]IC[place]: [id number] 1999 [employer] 00:00:00 [facility] [employer] [id number] 1982 BENEFIT PLAN - 00:00:00 SECONDARY TO MEDICARE Problems Condition Condition Condition Status Onset Resolution Last Treating Co mments Source Name Details Category Date Date Treatment Clinician Date Pulmonary Pulmonary Disease Active 2021-09 Uni vers hypertensi hypertensi 0-25 it y of on on 00:00: [address] SOB SOB Disease Active 2021-09 Univers (shortness (shortness 0-24 it y of of breath[place] IGNACIO on IGNACIO on Disease Active 2021-09 Univers CPAP CPAP 0-24 ity of 00:00: [place] 00 Medical Branch Acute on Acute on Disease Active 2021-09 Unive rs chronic chronic 0-24 ity of combined combined 00:00: [place] systolic systolic 00 Medica l and and Branch 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 0-24 ity of carotid carotid 00:00: [place] artery artery 00 Medical Branch Osteoarthr Osteoarthr Problem Active A zalea itis of itis of 5-17 Orthope left knee Left Knee 00:00: dic joint Joint 00 Sports Medicin e Pneumonia Pneumonia Disease Active Uni vers 3-04 ity of 00:00: [place] 00 Medical Branch Osteoarthr Osteoarthr Problem Active 2020-09 A zalea itis of itis of 2-07 Orthope knee Knee 00:00: dic 00 Sports Medicin e E44.0 E44.0 Disease Active 2019-09 Univers Moderate Moderate 2-16 ity of protein protein 00:00: [place] calorie calorie 00 Medical malnutriti malnutriti Br anch on on NSVT NSVT Disease Active 2019-09 Univers (nonsustai (nonsustai 2-08 it y of chao chao 00:00: [place] ventricula ventricula 00 Me dical r r Branch tachycardi tachycardi a) a) LBBB (left LBBB (left Disease Active 2019-09 U nivers bundle bundle 2-04 ity of branch branch 00:00: [place] block) block) 00 Medical Branch Acute on Acute on Disease Active 2019-09 Unive rs chronic chronic 2-04 ity of combined combined 00:00: [place] systolic systolic 00 Medica l and and Branch diastolic diastolic heart heart failure, failure, NYHA class NYHA class 2 2 COVID-19 COVID-19 Disease Active 2019-09 Unive rs virus virus 2-03 it[place] of infection [place] 00:[place] Elevated Elevated Disease Active 2019-09 Unive rs troponin I troponin I 2-03 it y of level level 00:00: [place] 00 Medical Branch Elevated Elevated Disease Active 2019-09 Unive rs brain brain 2-03 ity of natriureti natriureti 00:[place] c peptide c peptide 00 Medi bin (BNP) (BNP) Branch level level 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 00:00: [place] involving involving 00 Medi bin [place] Branch 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 Essential Essential Disease Active 2019-09 Uni vers hypertensi hypertensi 2-03 it y of on on 00:00: [place] [facility] Dyslipidem Dyslipidem Disease Active 2019-09 U nivers ia ia 2- ity of 00:00: [place] 00 Medical Branch Left Left Disease Active Univers shoulder shoulder 09-22 ity of pain pain 00:00: [place] 00 Medical Branch Allergies, Adverse Reactions, Alerts Allergy Allergy Status Severity Reaction(s) Onset Inactive Treating Comm ents Source Name Type Date Date Clinician No Known DA Active [facility]ie 03-31 [place] [facility] Spironol Propensi Active Other - See Dry mout h Univers actone ty to comments 5- and ity of adverse 00:00: fatigue. [place] reaction Update Medical s 07/15/22 Branch pt denies this allergy. SPIRONOL DRUG Active Low Other-Cmnt Univ ers ACTONE INGREDI 5-04 ity of 00:00: [place] 00 Medical Branch Social History Social Habit Start Date Stop Date Quantity Comments Source History of Passive smoker University of tobacco use [facility] [place] [facility] Exposure to 2022-07-18 2022-07-28 Not sure University of SARS-CoV-2 00:00:00 08:53:00 [place] Medical (event) Branch History SDOH Food 2022-07-17 2022-07-17 1 Univers ity of Worry 00:00:00 00:00:00 [place] [facility] History SDOH Food 2022-07-17 2022-07-17 1 Univers ity of Scarcity 00:00:00 00:00:00 [place] [facility] History SDOH 2022-07-17 2022-07-17 2 University o f Transport Med 00:00:00 00:00:00 [place] Medic al Branch History SDOH 2022-07-17 2022-07-17 2 University o f Transport Non-Med 00:00:00 00:00:00 [place] M edical Branch Alcohol intake 2022-07-15 2022-07-15 0 /d University of 00:00:00 00:00:00 [facility] [place] [facility] Tobacco use and 2022-07-14 2022-07-14 Smokeless tobacco Un iversity of exposure 00:00:00 00:00:00 non-user [facility] [place] [facility] Sex Ass[birth year] At [birth year] Universit y of 00:00:00 00:00:00 [facility] [place] [facility] Smoking Status Start Date Stop Date Source Never Smoker [facility] Ex-smoker 2022-07-14 00:00:00 2022-07-14 00:00:00 [facility] Medications Ordered Filled Start Stop Current Ordering Indication Dosage Frequency Signature Comments Components Source Medication Medication Date Date Medication? Clinician (SIG) Name Name sacubitril2021-09 Yes Take by Uni vers valsartan 1-07 mouth ity of (ENTRESTO 09:07: daily. [place] ORAL) Medical Branch sacubitril2021-09 Yes Take by Uni vers valsartan 1-07 mouth ity of (ENTRESTO 09:07: daily. [place] ORAL) Medical Branch sacubitril/ 2021-09 Yes Take by Uni vers valsartan 1-07 mouth ity of (ENTRESTO 09:07: daily. [place] ORAL) 21 Medical Branch sacubitril/ 2021-09 Yes Take by Uni vers valsartan 1-07 mouth ity of (ENTRESTO 09:07: daily. [place] ORAL) 21 Medical Branch levothyroxi 2021-09- No [id number] 112ug Take 1 Univers ne 112 mcg 0-27 11-27 tablet by ity of tablet 00:00: 05:59 mouth [place] 00 :00 every Medical morning Branch for 30 days. sennosides- 2021-09- No [id number] 1{tbl} Take 1 Univers docusate 0-27 11-27 tablet by ity o f sodium 00:00: 05:59 mouth in [place] 8.6-50 mg 00 :00 the Medical per tablet morning Branch for 30 days. spironolact 2021-09- No [id number] 50mg Take 1 Univers one 50 mg 0-27 11-27 tablet by ity of tablet 00:00: 05:59 mouth in [place] 00 :00 the Medical morning Branch for 30 days. levothyroxi 2021-09- No [id number] 112ug Take 1 Univers ne 112 mcg 0-27 11-27 tablet by ity of tablet 00:00: 05:59 mouth [place] 00 :00 every Medical morning Branch for 30 days. sennosides- 2021-09- No [id number] 1{tbl} Take 1 Univers docusate 0-27 11-27 tablet by ity o f sodium 00:00: 05:59 mouth in [place] 8.6-50 mg 00 :00 the Medical per tablet morning Branch for 30 days. spironolact 2021-09- No [id number] 50mg Take 1 Univers one 50 mg 0-27 11-27 tablet by ity of tablet 00:00: 05:59 mouth in [place] 00 :00 the Medical morning Branch for 30 days. levothyroxi 2021-09- No [id number] 112ug Take 1 Univers ne 112 mcg 0-27 11-27 tablet by ity of tablet 00:00: 05:59 mouth [place] 00 :00 every Medical morning Branch for 30 days. sennosides- 2021-09- No [id number] 1{tbl} Take 1 Univers docusate 0-27 11-27 tablet by ity o f sodium 00:00: 05:59 mouth in [place] 8.6-50 mg 00 :00 the Medical per tablet morning Branch for 30 days. spironolact 2021-09- No [id number] 50mg Take 1 Univers one 50 mg 0-27 11-27 tablet by ity of tablet 00:00: 05:59 mouth in [place] 00 :00 the Medical morning Branch for 30 days. levothyroxi 2021-09- No [id number] 112ug Take 1 Univers ne 112 mcg 0-27 11-27 tablet by ity of tablet 00:00: 05:59 mouth [place] 00 :00 every Medical morning Branch for 30 days. sennosides- 2021-09- No [id number] 1{tbl} Take 1 Univers docusate 0-27 11-27 tablet by ity o f sodium 00:00: 05:59 mouth in [place] 8.6-50 mg 00 :00 the Medical per tablet morning Branch for 30 days. spironolact 2021-09- No [id number] 50mg Take 1 Univers one 50 mg 0-27 11-27 tablet by ity of tablet 00:00: 05:59 mouth in [place] 00 :00 the Medical morning Branch for 30 days. levothyroxi 2021-09- No [id number] 112ug Take 1 Univers ne 112 mcg 0-27 11-27 tablet by ity of tablet 00:00: 05:59 mouth [place] 00 :00 every Medical morning Branch for 30 days. sennosides- 2021-09- No [id number] 1{tbl} Take 1 Univers docusate 0-27 11-27 tablet by ity o f sodium 00:00: 05:59 mouth in [place] 8.6-50 mg 00 :00 the Medical per tablet morning Branch for 30 days. spironolact 2021-09- No [id number] 50mg Take 1 Univers one 50 mg 0-27 11-27 tablet by ity of tablet 00:00: 05:59 mouth in [place] 00 :00 the Medical morning Branch for 30 days. levothyroxi 2021-09- No [id number] 112ug Take 1 Univers ne 112 mcg 0-27 11-27 tablet by ity of tablet 00:00: 05:59 mouth [place] 00 :00 every Medical morning Branch for 30 days. sennosides- 2021-09- No [id number] 1{tbl} Take 1 Univers docusate 0-27 11-27 tablet by ity o f sodium 00:00: 05:59 mouth in [place] 8.6-50 mg 00 :00 the Medical per tablet morning Branch for 30 days. spironolact 2021-09- No [id number] 50mg Take 1 Univers one 50 mg 0-27 11-27 tablet by ity of tablet 00:00: 05:59 mouth in [place] 00 :00 the Medical morning Branch for 30 days. sacubitril/ 2021-09 Yes Take by Uni vers valsartan 0-26 mouth ity of (ENTRESTO 16:35: daily. [place] ORAL) 56 Medical Branch gabapentin 2021-09 Yes Take by [facility] [place] [facility] ers ER 600 mg 0-26 mouth 2 ity of tablet, 16:35: (two) [place] extended 56 times Medical release 24 daily. Branch hr sacubitril/ 2021-09 Yes Take by Uni vers valsartan 0-26 mouth ity of (ENTRESTO 16:35: daily. [place] ORAL) 56 Medical Branch gabapentin 2021-09 Yes Take by [facility] [place] [facility] ers ER 600 mg 0-26 mouth 2 ity of tablet, 16:35: (two) [place] extended 56 times Medical release 24 daily. Branch hr gabapentin 2021-09 Yes Take by [facility] [place] [facility] ers ER 600 mg 0-26 mouth 2 ity of tablet, 16:35: (two) [place] extended 56 times Medical release 24 daily. Branch hr gabapentin 2021-09 Yes Take by [facility] [place] [facility] ers ER 600 mg 0-26 mouth 2 ity of tablet, 16:35: (two) [place] extended 56 times Medical release 24 daily. Branch hr gabapentin 2021-09 Yes Take by Univ ers ER 600 mg 0-26 mouth 2 ity of tablet, 16:35: (two) [place] extended 56 times Medical release 24 daily. Branch hr gabapentin 2021-09 Yes Take by [facility] [place] [facility] ers ER 600 mg 0-26 mouth 2 ity of tablet, 16:35: (two) [place] extended 56 times Medical release 24 daily. Branch hr spironolact 2021-09- No 25mg Take 25 mg Univers one 25 mg 0-26 10-26 by mouth ity o f tablet 16:35: 00:00 in the [place] 55 :00 morning. Medical Branch zolpidem 10 2021-09- No 10mg Take 10 mg Univers mg tablet 0-26 10-26 by mouth ity o f 15:21: 00:00 at bedtime [place] 27 :00 as needed Medical for Branch Insomnia. fluticasone 2021-09- No 1{puff} Inhale 1 Univers furoate 0-26 10-26 Puff ity of (ARNUITY 15:21: 00:00 daily. [place] ELLIPTA) 27 :00 Medical 100 Branch mcg/actuati on DsDv fluticasone 2021-09 Yes [id number] 1{puff} Inhale 1 Univers propionate 0-26 Puff every ity of 110 00:00: 12 [place] mcg/actuati 00 (twelve) Medi bin on inhaler hours. Branch furosemide 2021-09 Yes [id number] 40mg Take 1 U nivers 40 mg 0-26 tablet by ity of tablet 00:00: mouth in [place] 00 the Medical morning. Branch KCL 20 mEq 2021-09 Yes [id number] 20meq Take 1 Univers tablet 0-26 tablet by ity of 00:00: mouth in [place] 00 the Medical morning. Branch fluticasone 2021-09 Yes [id number] 1{puff} Inhale 1 Univers propionate 0-26 Puff every ity of 110 00:00: 12 [place] mcg/actuati 00 (twelve) Medi bin on inhaler hours. Branch furosemide 2021-09 Yes [id number] 40mg Take 1 U nivers 40 mg 0-26 tablet by ity of tablet 00:00: mouth in [place] 00 the Medical morning. Branch KCL 20 mEq 2021-09 Yes [id number] 20meq Take 1 Univers tablet 0-26 tablet by ity of 00:00: mouth in [place] 00 the Medical morning. Branch fluticasone 2021-09 Yes [id number] 1{puff} Inhale 1 Univers propionate 0-26 Puff every ity of 110 00:00: 12 [place] mcg/actuati 00 (twelve) Medi bin on inhaler hours. Branch furosemide 2021-09 Yes [id number] 40mg Take 1 U nivers 40 mg 0-26 tablet by ity of tablet 00:00: mouth in [place] 00 the Medical morning. Branch KCL 20 mEq 2021-09 Yes [id number] 20meq Take 1 Univers tablet 0-26 tablet by ity of 00:00: mouth in [place] 00 the Medical morning. Branch fluticasone 2021-09 Yes [id number] 1{puff} Inhale 1 Univers propionate 0-26 Puff every ity of 110 00:00: 12 [place] mcg/actuati 00 (twelve) Medi bin on inhaler hours. Branch furosemide 2021-09 Yes [id number] 40mg Take 1 U nivers 40 mg 0-26 tablet by ity of tablet 00:00: mouth in [place] 00 the Medical morning. Branch KCL 20 mEq 2021-09 Yes [id number] 20meq Take 1 Univers tablet 0-26 tablet by ity of 00:00: mouth in [place] 00 the Medical morning. Branch fluticasone 2021-09 Yes [id number] 1{puff} Inhale 1 Univers propionate 0-26 Puff every ity of 110 00:00: 12 [place] mcg/actuati 00 (twelve) Medi bin on inhaler hours. Branch furosemide 2021-09 Yes [id number] 40mg Take 1 U nivers 40 mg 0-26 tablet by ity of tablet 00:00: mouth in [place] 00 the Medical morning. Branch KCL 20 mEq 2021-09 Yes [id number] 20meq Take 1 Univers tablet 0-26 tablet by ity of 00:00: mouth in [place] 00 the Medical morning. Branch fluticasone 2021-09 Yes [id number] 1{puff} Inhale 1 Univers propionate 0-26 Puff every ity of 110 00:00: 12 [place] mcg/actuati 00 (twelve) Medi bin on inhaler hours. Branch furosemide 2021-09 Yes [id number] 40mg Take 1 U nivers 40 mg 0-26 tablet by ity of tablet 00:00: mouth in [place] 00 the Medical morning. Branch KCL 20 mEq 2021-09 Yes [id number] 20meq Take 1 Univers tablet 0-26 tablet by ity of 00:00: mouth in [place] 00 the Medical morning. Branch sennosides- 2021-09 Yes 1{tbl} 1 tablet, Univers docusate 0-25 Oral, ity of sodium 14:00: DAILY, [place] (SENOKOT-S) 00 First dose Me dical 8.6-50 mg on [facility] per tablet 07/15/22 1 tablet at 0900, Until Discontinu ed, Routine spironolact 2021-09 Yes 50mg 50 mg, Univ ers one 0-25 Oral, ity of (ALDACTONE) 14:00: DAILY, [place] tablet 50 00 First dose Medi bin mg on [facility] 07/15/22 at 0900, Until Discontinu ed, Routine aspirin EC 2021-09 Yes 81mg 81 mg, Unive rs tablet 81 0-25 Oral, ity of mg 14:00: DAILY, [place] 00 First dose Medical on [facility] 07/15/22 at 0900, Until Discontinu ed, Routine levothyroxi 2021-09 Yes 112ug 112 mcg, U nivers ne 0-25 Oral, ity of (SYNTHROID) 11:00: QAM-0600, [place] tablet 112 00 First dose Med ical mcg on [facility] 07/15/22 at 0600, Until Discontinu ed, Routine melatonin 2021-09 Yes 3mg 3 mg, Univers (MELATIN) 0-25 Oral, QHS, ity of tablet 3 mg 02:15: First dose 00 on [facility] 07/14/22 Branch at 2115, Until Discontinu ed, Routine fluticasone 2021-09 Yes 1{puff} 1 Puff, Univers propionate 0-25 Inhalation ity of (FLOVENT) 01:00: , Q12H, [place] 110 00 First dose Medical mcg/actuati on [facility] on inhaler 07/14/22 1 Puff at 2000, Until Discontinu ed
Is this order for a patient with suspected or confirmed COVID-19 infection? No
Does this order have Pulmonary/ Critical Care approval? Yes doxazosin 2021-09 Yes 2mg 2 mg, Univers (CARDURA) 0-25 Oral, BID, ity of tablet 2 mg 01:00: First dose 00 on [facility] 07/14/22 Branch at 2000, Until Discontinu ed, Routine carvediloL 2021-09 Yes 3.125mg 3.125 mg, Univers (COREG) 0-25 Oral, BID, ity of tablet 01:00: First dose [place] 3.125 mg 00 on [facility] 07/14/22 Branch at 2000, Until Discontinu ed, Routine enoxaparin 2021-09 Yes 40mg 40 mg, Unive rs (LOVENOX) 0-24 Subcutaneo ity of injection 22:00: [place], [place]ILY, [place] 40 mg 00 First dose Medical on [facility] 07/14/22 at 1700, Until Discontinu ed, Routine furosemide 2021-09 Yes 40mg 40 mg, IV Un ezio (LASIX) 0-24 Push, ity of injection 20:30: Q12H, [place] 40 mg 00 First dose Medical on [facility] 07/14/22 at 1530, Until Discontinu ed, Routine acetaminoph 2021-09 Yes 650mg 650 mg, Un ezio en 0-24 Oral, ity of (TYLENOL) 20:11: Q6HPRN, [place] tablet 650 48 Starting Medic al mg on [facility] 07/14/22 at 1511, Until Discontinu ed, Routine, Pain (scale 1-3) aspirin 2021-09 No 243mg 243 mg, Unive rs chewable 0-24 10-24 Oral, ity of tablet 243 16:30: 20:25 DAILY, [place] mg 00 :08 First dose Medical on Thu Branch 07/14/22 at 1130, Until Discontinu ed, Routine furosemide 2021-09 No 40mg 40 mg, IV U nivers (LASIX) 0-24 10-24 Push, ity of injection 16:00: 16:23 ONCE, 1 [place] 40 mg 00 :00 dose, On Medical [facility] Branch 07/14/22 at 1100, ERNST traMADoL Yes [id number] 50mg Take 1 Univers (ULTRAM) 50 9-03 tablet by ity of mg tablet 00:00: mouth [place] 00 every 6 Medical (six) Branch hours as needed for Pain (scale 7-10). Indication s: acute pain methocarbam Yes [id number] 500mg Take 1 Univers oL 500 mg 9-03 tablet by ity o f tablet 00:00: mouth [place] 00 every 6 Medical (six) Branch hours as needed for Pain (scale 7-10) (MUSCLE SPASM). traMADoL Yes [id number] 50mg Take 1 Univers (ULTRAM) 50 9-03 tablet by ity of mg tablet 00:00: mouth [place] 00 every 6 Medical (six) Branch hours as needed for Pain (scale 7-10). Indication s: acute pain methocarbam Yes [id number] 500mg Take 1 Univers oL 500 mg 9-03 tablet by ity o f tablet 00:00: mouth [place] 00 every 6 Medical (six) Branch hours as needed for Pain (scale 7-10) (MUSCLE SPASM). traMADoL 0 Yes [id number] 50mg Take 1 Univers (ULTRAM) 50 9-03 tablet by ity of mg tablet 00:00: mouth [place] 00 every 6 Medical (six) Branch hours as needed for Pain (scale 7-10). Indication s: acute pain methocarbam 0 Yes [id number] 500mg Take 1 Univers oL 500 mg 9-03 tablet by ity o f tablet 00:00: mouth [place] 00 every 6 Medical (six) Branch hours as needed for Pain (scale 7-10) (MUSCLE SPASM). traMADoL Yes [id number] 50mg Take 1 Univers (ULTRAM) 50 9-03 tablet by ity of mg tablet 00:00: mouth [place] 00 every 6 Medical (six) Branch hours as needed for Pain (scale 7-10). Indication s: acute pain methocarbam 2021-0 Yes [id number] 500mg Take 1 Univers oL 500 mg 9- tablet by ity o f tablet 00:00: mouth [place] 00 every 6 Medical (six) Branch hours as needed for Pain (scale 7-10) (MUSCLE SPASM). traMADoL 2021- No [id number] 50mg Take 1 Univer s (ULTRAM) 50 -07-16 tablet by it y of mg tablet 00:00: 00:00 mouth [place] 00 :00 every 6 Medical (six) Branch hours as needed for Pain (scale 7-10). Indication s: acute pain methocarbam 2021-0 2021- No [id number] 500mg Take 1 Univers oL 500 mg -07-16 tablet by ity of tablet 00:00: 00:00 mouth [place] 00 :00 every 6 Medical (six) Branch hours as needed for Pain (scale 7-10) (MUSCLE SPASM). carvediloL 2021-0 Yes 3.125mg Take 3.125 Univers 3.125 mg 8-30 mg by ity of tablet 00:00: mouth in [place] 00 the Medical morning Branch and 3.125 mg in the evening. carvediloL 2-0 Yes 3.125mg Take 3.125 Univers 3.125 mg 8-30 mg by ity of tablet 00:00: mouth in [place] 00 the Medical morning Branch and 3.125 mg in the evening. carvediloL 2022-0 Yes 3.125mg Take 3.125 Univers 3.125 mg 8-30 mg by ity of tablet 00:00: mouth in [place] 00 the Medical morning Branch and 3.125 mg in the evening. carvediloL 2022-0 Yes 3.125mg Take 3.125 Univers 3.125 mg 8-30 mg by ity of tablet 00:00: mouth in [place] 00 the Medical morning Branch and 3.125 mg in the evening. carvediloL 2022-0 Yes 3.125mg Take 3.125 Univers 3.125 mg 8-30 mg by ity of tablet 00:00: mouth in [place] 00 the Medical morning Branch and 3.125 mg in the evening. carvediloL 2022-0 Yes 3.125mg Take 3.125 Univers 3.125 mg 8-30 mg by ity of tablet 00:00: mouth in [place] 00 the Medical morning Branch and 3.125 mg in the evening. carvediloL 2021-0 Yes 3.125mg Take 3.125 Univers 3.125 mg 8-30 mg by ity of tablet 00:00: mouth in [place] 00 the Medical morning Branch and 3.125 mg in the evening. carvediloL 2021-0 Yes 3.125mg Take 3.125 Univers 3.125 mg 8-30 mg by ity of tablet 00:00: mouth in [place] 00 the Medical morning Branch and 3.125 mg in the evening. carvediloL 2021-0 Yes 3.125mg Take 3.125 Univers 3.125 mg 8-30 mg by ity of tablet 00:00: mouth in [place] 00 the Medical morning Branch and 3.125 mg in the evening. carvediloL 0 Yes 3.125mg Take 3.125 Univers 3.125 mg 8-30 mg by ity of tablet 00:00: mouth in [place] 00 the Medical morning Branch and 3.125 mg in the evening. ENTRESTO 2021- 202- No 1{tbl} Take 1 Univ ers 24-26 mg 8-30 09-19 tablet by ity o f tablet 00:00: 00:00 mouth [place] 00 :00 every 12 Medical (twelve) Branch hours. ENTRESTO 2021- 202- No 1{tbl} Take 1 Univ ers 24-26 mg 8-30 09-19 tablet by ity o f tablet 00:00: 00:00 mouth [place] 00 :00 every 12 Medical (twelve) Branch hours. ENTRESTO 2021-2021- No 1{tbl} Take 1 Univ ers 24-26 mg 8-30 09-19 tablet by ity o f tablet 00:00: 00:00 mouth [place] 00 :00 every 12 Medical (twelve) Branch hours. doxazosin 2 2021-0 Yes 2mg Take 2 mg U nivers mg tablet 8-17 by mouth ity of 00:00: in the [place] 00 morning Medical and 2 mg Branch in the evening. doxazosin 2 2021-0 Yes 2mg Take 2 mg U nivers mg tablet 8-17 by mouth ity of 00:00: in the [place] 00 morning Medical and 2 mg Branch in the evening. doxazosin 2 2021-0 Yes 2mg Take 2 mg U nivers mg tablet 8-17 by mouth ity of 00:00: in the [place] 00 morning Medical and 2 mg Branch in the evening. doxazosin 2 2021-0 Yes 2mg Take 2 mg U nivers mg tablet 8-17 by mouth ity of 00:00: in the [place] 00 morning Medical and 2 mg Branch in the evening. doxazosin 2 2021-0 2021- No 2mg Take 2 mg Univers mg tablet 8-07-16 by mouth ity o f 00:00: 00:00 in the [place] 00 :00 morning Medical and 2 mg Branch in the evening. losartan 50 2021-0 Yes [id number] 50mg Take 1 Univers mg tablet 5-04 tablet by ity o f 00:00: mouth [place] 00 every Medical evening. Branch losartan 50 2021-0 Yes [id number] 50mg Take 1 [facility] mg tablet 5-04 tablet by ity o f 00:00: mouth [place] 00 every Medical evening. Branch losartan 50 2021-0 Yes [id number] 50mg Take 1 [facility] mg tablet 5-04 tablet by ity o f 00:00: mouth [place] 00 every Medical evening. Branch losartan 50 2021-0 Yes [id number] 50mg Take 1 [facility] mg tablet 5-04 tablet by ity o f 00:00: mouth [place] 00 every Medical evening. Branch losartan 50 2021-0 Yes [id number] 50mg Take 1 [facility] mg tablet 5-04 tablet by ity o f 00:00: mouth [place] 00 every Medical evening. Branch losartan 50 2021-0 Yes [id number] 50mg Take 1 [facility] mg tablet 5-04 tablet by ity o f 00:00: mouth [place] 00 every Medical evening. Branch losartan 50 2021-0 2021- No [id number] 50mg Take 1 [facility] mg tablet 5-04 -07 tablet by ity of 00:00: 00:00 mouth [place] 00 :00 every Medical evening. Branch losartan 50 2021-0 2021- No [id number] 50mg Take 1 [facility] mg tablet 5-04 -07 tablet by ity of 00:00: 00:00 mouth [place] 00 :00 every Medical evening. Branch zolpidem 10 Yes 10mg Take 10 mg [facility] mg tablet 3-24 by mouth ity of 09:50: at bedtime [place] 56 as needed Medical for Branch Insomnia. fluticasone 0 Yes 1{puff} Inhale 1 [facility] furoate 3-24 Puff ity of (ARNUITY 09:50: daily. [place] ELLIPTA) 56 Medical 100 Branch mcg/actuati on DsDv zolpidem 10 Yes 10mg Take 10 mg [facility] mg tablet 3-24 by mouth ity of 09:50: at bedtime [place] 56 as needed Medical for Branch Insomnia. fluticasone 0 Yes 1{puff} Inhale 1 [facility] furoate 3-24 Puff ity of (ARNUITY 09:50: daily. [place] ELLIPTA) 56 Medical 100 Branch mcg/actuati on DsDv zolpidem 10 Yes 10mg Take 10 mg [facility] mg tablet 3-24 by mouth ity of 09:50: at bedtime [place] 56 as needed Medical for Branch Insomnia. fluticasone 0 Yes 1{puff} Inhale 1 [facility] furoate 3-24 Puff ity of (ARNUITY 09:50: daily. [place] ELLIPTA) 56 Medical 100 Branch mcg/actuati on DsDv zolpidem 10 Yes 10mg Take 10 mg [facility] mg tablet 3-24 by mouth ity of 09:50: at bedtime [place] 56 as needed Medical for Branch Insomnia. fluticasone 0 Yes 1{puff} Inhale 1 [facility] furoate 3-24 Puff ity of (ARNUITY 09:50: daily. [place] ELLIPTA) 56 Medical 100 Branch mcg/actuati on DsDv furosemide 0 Yes 40mg Take 1 [facility] rs 40 mg 3-24 tablet by ity of tablet 00:00: mouth [place] 00 daily. Medical Branch furosemide 2021-0 Yes 40mg Take 1 [facility] rs 40 mg 3-24 tablet by ity of tablet 00:00: mouth [place] 00 daily. Medical Branch furosemide 2021-0 Yes 40mg Take 1 [facility] rs 40 mg 3-24 tablet by ity of tablet 00:00: mouth [place] 00 daily. Medical Branch furosemide 2021-0 Yes 40mg Take 1 [facility] rs 40 mg 3-24 tablet by ity of tablet 00:00: mouth [place] 00 daily. Medical Branch furosemide 2021-2021- No 40mg Take 1 [facility] ers 40 mg 3-24 10-26 tablet by ity of tablet 00:00: 00:00 mouth [place] 00 :00 daily. Medical Branch ergocalcife 2019-09 Yes [id number] 67112D Take 1 [facility] rol, 2-17 capsule by ity of vitamin d2, 00:00: mouth [place] 1,250 mcg 00 weekly. Medical (50,000 Branch unit) capsule KCL 20 mEq 2019-09 Yes [id number] 20meq Take 1 [facility] tablet 2-17 tablet by ity of 00:00: mouth [place] 00 daily. Medical Branch ergocalcife 2019-09 Yes [id number] Take 1 [facility] rol, 2-17 capsule by ity of vitamin d2, 00:00: mouth [place] 1,250 mcg 00 weekly. Medical (50,000 Branch unit) capsule KCL 20 mEq 2019-09 Yes [id number] 20meq Take 1 [facility] tablet 2-17 tablet by ity of 00:00: mouth [place] 00 daily. Medical Branch ergocalcife 2019-09 Yes [id number] Take 1 [facility] rol, 2-17 capsule by ity of vitamin d2, 00:00: mouth [place] 1,250 mcg 00 weekly. Medical (50,000 Branch unit) capsule KCL 20 mEq 2019-09 Yes [id number] 20meq Take 1 [facility] tablet 2-17 tablet by ity of 00:00: mouth [place] 00 daily. Medical Branch ergocalcife 2019-09 Yes [id number] Take 1 [facility] rol, 2-17 capsule by ity of vitamin d2, 00:00: mouth [place] 1,250 mcg 00 weekly. Medical (50,000 Branch unit) capsule KCL 20 mEq 2019-09 Yes [id number] 20meq Take 1 [facility] tablet 2-17 tablet by ity of 00:00: mouth [place] 00 daily. Medical Branch ergocalcife 2019-09- No [id number] 62963H Take 1 [facility] rol, 2-17 10-26 capsule by [facility] of vitamin d2, 00:00: 00:00 [place] 1,250 mcg 00 :00 weekly. Medical (50,000 Branch unit) capsule KCL 20 mEq 2019-09- No [id number] 20meq Take 1 [facility] tablet 2-17 10-26 tablet by ity of 00:00: 00:00 mouth [place] 00 :00 daily. Medical Branch levalbutero 2019-09 Yes [id number] .63mg Inhale [facility] l (XOPENEX) 2-16 0.63 mg ity o f 0.63 mg/3 00:00: every 4 [place] mL 00 (four) Medical nebulizer hours as Branch solution needed for Wheezing or Shortness of Breath. aspirin 81 2019-09 Yes [id number] 81mg Take 1 [facility] mg EC 2-16 tablet by ity of tablet 00:00: mouth [place] 00 daily. Medical Branch levothyroxi 2019-09 Yes [id number] 100ug Take 1 [facility] ne 100 mcg 2-16 tablet by ity of tablet 00:00: mouth [place] 00 every Medical morning. Branch pantoprazol 2019-09 Yes [id number] 20mg Take 1 [facility] e 20 mg EC 2-16 tablet by ity of tablet 00:00: mouth [place] 00 daily. Medical Branch zolpidem 2019-09 Yes [id number] 6.25mg Take 1 [facility] 6.25 mg CR 2-16 tablet by ity of tablet 00:00: mouth at [place] 00 bedtime as Medical needed for Branch Sleep. ascorbic 2019-09 Yes [id number] 500mg Take 1 [facility] acid, 2-16 tablet by [facility] vitamin C, 00:00: mouth 2 [place] 500 mg 00 (two) Medical tablet times Branch daily. melatonin 3 2019-09 Yes [id number] 3mg Take 1 [facility] mg tablet 2-16 tablet by ity o f 00:00: mouth at [place] 00 bedtime. Medical Branch Polyethylen 2019-09 Yes [id number] 17g Take 1 [facility] e Glycol 2-16 Packet by ity of 3350 17 00:00: mouth 2 [place] gram powder 00 (two) Medical times Branch daily. sennosides 2019-09 Yes [id number] 8.6mg Take 1 [facility] 8.6 mg 2-16 tablet by ity of tablet 00:00: mouth 2 [place] 00 (two) Medical times Branch daily. levalbutero 2019-09 Yes [id number] .63mg Inhale [facility] l (XOPENEX) 2-16 0.63 mg ity o f 0.63 mg/3 00:00: every 4 [place] mL 00 (four) Medical nebulizer hours as Branch solution needed for Wheezing or Shortness of Breath. aspirin 81 2019-09 Yes [id number] 81mg Take 1 [facility] mg EC 2-16 tablet by ity of tablet 00:00: mouth [place] 00 daily. Medical Branch levothyroxi 2019-09 Yes [id number] 100ug Take 1 [facility] ne 100 mcg 2-16 tablet by ity of tablet 00:00: mouth [place] 00 every Medical morning. Branch pantoprazol 2019-09 Yes [id number] 20mg Take 1 [facility] e 20 mg EC 2-16 tablet by ity of tablet 00:00: mouth [place] 00 daily. Medical Branch zolpidem 2019-09 Yes [id number] 6.25mg Take 1 [facility] 6.25 mg CR 2-16 tablet by ity of tablet 00:00: mouth at [place] 00 bedtime as Medical needed for Branch Sleep. ascorbic 2019-09 Yes [id number] 500mg Take 1 [facility] nivers acid, 2-16 tablet by [facility] of vitamin C, 00:00: mouth 2 [place] 500 mg 00 (two) Medical tablet times Branch daily. melatonin 3 2019-09 Yes [id number] 3mg Take 1 [facility] mg tablet 2-16 tablet by ity o f 00:00: mouth at [place] 00 bedtime. Medical Branch Polyethylen 2019-09 Yes [id number] 17g Take 1 [facility] e Glycol 2-16 Packet by ity of 3350 17 00:00: mouth 2 [place] gram powder 00 (two) Medical times Branch daily. sennosides 2019-09 Yes [id number] 8.6mg Take 1 [facility] 8.6 mg 2-16 tablet by ity of tablet 00:00: mouth 2 [place] 00 (two) Medical times Branch daily. levalbutero 2019-09 Yes [id number] .63mg Inhale [facility] l (XOPENEX) 2-16 0.63 mg ity o f 0.63 mg/3 00:00: every 4 [place] mL 00 (four) Medical nebulizer hours as Branch solution needed for Wheezing or Shortness of Breath. aspirin 81 2019-09 Yes [id number] 81mg Take 1 [facility] mg EC 2-16 tablet by ity of tablet 00:00: mouth [place] 00 daily. Medical Branch levothyroxi 2019-09 Yes [id number] 100ug Take 1 [facility] ne 100 mcg 2-16 tablet by ity of tablet 00:00: mouth [place] 00 every Medical morning. Branch pantoprazol 2019-09 Yes [id number] 20mg Take 1 [facility] e 20 mg EC 2-16 tablet by ity of tablet 00:00: mouth [place] 00 daily. Medical Branch zolpidem 2019-09 Yes [id number] 6.25mg Take 1 [facility] 6.25 mg CR 2-16 tablet by ity of tablet 00:00: mouth at [place] 00 bedtime as Medical needed for Branch Sleep. ascorbic 2019-09 Yes [id number] 500mg Take 1 [facility] nivers acid, 2-16 tablet by [facility] of vitamin C, 00:00: mouth 2 [place] 500 mg 00 (two) Medical tablet times Branch daily. melatonin 3 2019-09 Yes [id number] 3mg Take 1 [facility] mg tablet 2-16 tablet by ity o f 00:00: mouth at [place] 00 bedtime. Medical Branch Polyethylen 2019-09 Yes [id number] 17g Take 1 [facility] e Glycol 2-16 Packet by ity of 3350 17 00:00: mouth 2 [place] gram powder 00 (two) Medical times Branch daily. sennosides 2019-09 Yes [id number] 8.6mg Take 1 [facility] 8.6 mg 2-16 tablet by ity of tablet 00:00: mouth 2 [place] 00 (two) Medical times Branch daily. levalbutero 2019-09 Yes [id number] .63mg Inhale [facility] l (XOPENEX) 2-16 0.63 mg ity o f 0.63 mg/3 00:00: every 4 [place] mL 00 (four) Medical nebulizer hours as Branch solution needed for Wheezing or Shortness of Breath. aspirin 81 2019-09 Yes [id number] 81mg Take 1 [facility] mg EC 2-16 tablet by ity of tablet 00:00: mouth [place] 00 daily. Medical Branch levothyroxi 2019-09 Yes [id number] 100ug Take 1 [facility] ne 100 mcg 2-16 tablet by ity of tablet 00:00: mouth [place] 00 every Medical morning. Branch pantoprazol 2019-09 Yes [id number] 20mg Take 1 [facility] e 20 mg EC 2-16 tablet by ity of tablet 00:00: mouth [place] 00 daily. Medical Branch zolpidem 2019-09 Yes [id number] 6.25mg Take 1 [facility] 6.25 mg CR 2-16 tablet by ity of tablet 00:00: mouth at [place] 00 bedtime as Medical needed for Branch Sleep. ascorbic 2019-09 Yes [id number] 500mg Take 1 [facility] nivers acid, 2-16 tablet by [facility] of vitamin C, 00:00: mouth 2 [place] 500 mg 00 (two) Medical tablet times Branch daily. melatonin 3 2019-09 Yes [id number] 3mg Take 1 [facility] mg tablet 2-16 tablet by ity o f 00:00: mouth at [place] 00 bedtime. Medical Branch Polyethylen 2019-09 Yes [id number] 17g Take 1 [facility] e Glycol 2-16 Packet by ity of 3350 17 00:00: mouth 2 [place] gram powder 00 (two) Medical times Branch daily. sennosides 2019-09 Yes [id number] 8.6mg Take 1 [facility] 8.6 mg 2-16 tablet by ity of tablet 00:00: mouth 2 [place] 00 (two) Medical times Branch daily. aspirin 81 2019-09 Yes [id number] 81mg Take 1 [facility] mg EC 2-16 tablet by ity of tablet 00:00: mouth [place] 00 daily. Medical Branch aspirin 81 2019-09 Yes [id number] 81mg Take 1 [facility] mg EC 2-16 tablet by ity of tablet 00:00: mouth [place] 00 daily. Medical Branch aspirin 81 2019-09 Yes [id number] 81mg Take 1 [facility] mg EC 2-16 tablet by ity of tablet 00:00: mouth [place] 00 daily. Medical Branch aspirin 81 2019-09 Yes [id number] 81mg Take 1 [facility] mg EC 2-16 tablet by ity of tablet 00:00: mouth [place] 00 daily. Medical Branch aspirin 81 2019-09 Yes [id number] 81mg Take 1 [facility] mg EC 2-16 tablet by ity of tablet 00:00: mouth [place] 00 daily. Medical Branch aspirin 81 2019-09 Yes [id number] 81mg Take 1 [facility] mg EC 2-16 tablet by ity of tablet 00:00: mouth [place] 00 daily. Medical Branch levalbutero 2019-09- No [id number] .63mg Inhale [facility] l (XOPENEX) 2-16 10-26 0.63 mg ity of 0.63 mg/3 00:00: 00:00 every 4 [place] mL 00 :00 (four) Medical nebulizer hours as Branch solution needed for Wheezing or Shortness of Breath. levothyroxi 2019-09- No [id number] 100ug Take 1 [facility] ne 100 mcg -16 - tablet by ity of tablet 00:00: 00:00 mouth [place] 00 :00 every Medical morning. Branch pantoprazol 2019-09- No [id number] 20mg Take 1 [facility] e 20 mg EC -06 07- tablet by ity of tablet 00:00: 00:00 mouth [place] 00 :00 daily. Medical Branch zolpidem 2019-09- No [id number] 6.25mg Take 1 [facility] 6.25 mg CR -06 07- tablet by ity of tablet 00:00: 00:00 mouth at [place] 00 :00 bedtime as Medical needed for Branch Sleep. ascorbic 2019-09- No [id number] 500mg Take 1 [facility] acid, -16 - tablet by ity of vitamin C, 00:00: 00:00 mouth 2 [place] 500 mg 00 :00 (two) Medical tablet times Branch daily. melatonin 3 2019-09- No [id number] 3mg Take 1 [facility] mg tablet 11-06- tablet by ity of 00:00: 00:00 mouth at [place] 00 :00 bedtime. Medical Branch Polyethylen 2019-09- No [id number] 17g Take 1 [facility] e Glycol -07-16 Packet by ity o f 3350 17 00:00: 00:00 mouth 2 [place] gram powder 00 :00 (two) Medical times Branch daily. sennosides 2019-09- No [id number] 8.6mg Take 1 [facility] 8.6 mg -16 - tablet by ity of tablet 00:00: 00:00 mouth 2 [place] 00 :00 (two) Medical times Branch daily. fluticasone fluticasone No fluticason [facility] propionate propionate e Ort hope 50 50 propionate dic mcg/actuati mcg/actuati 50 S ports on nasal on nasal mcg/actuat M edicin spray,suspe spray,suspe ion nasal e nsion nsion spray,susp INSTILL 2 INSTILL 2 ension SPRAYS EACH SPRAYS EACH INSTILL 2 SIDE DAILY SIDE DAILY SPRAYS FOR NASAL FOR NASAL EACH SIDE DRAINAGE DRAINAGE DAILY FOR AND AND NASAL ALLERGIES ALLERGIES DRAINAGE AND ALLERGIES furosemide furosemide No furosemide [facility] 40 mg 40 mg 40 mg [facility] tablet TAKE tablet TAKE tablet dic 1 TABLET BY 1 TABLET BY TAKE 1 Sports MOUTH EVERY MOUTH EVERY TABLET BY Medicin DAY DAY MOUTH e EVERY DAY gabapentin gabapentin No gabapentin [facility] 600 mg 600 mg 600 mg [facility] tablet TAKE tablet TAKE tablet dic 1 TABLET BY 1 TABLET BY TAKE 1 Sports MOUTH TWICE MOUTH TWICE TABLET BY [facility] A DAY A DAY MOUTH e TWICE A DAY hydrocodone hydrocodone No hydrocodon [facility] 5 5 e 5 [facility] mg-acetamin mg-acetamin mg-acetami dic ophen 325 ophen 325 nophen 325 [facility] mg tablet mg tablet mg tablet [facility] TAKE 1 TAKE 1 TAKE 1 e TABLET BY TABLET BY TABLET BY MOUTH EVERY MOUTH EVERY MOUTH 6 HOURS 6 HOURS EVERY 6 NEED FOR NEED FOR HOURS PAIN PAIN NEED FOR PAIN Jardiance Jardiance No Jardiance [facility] 10 mg 10 mg 10 mg [facility] tablet TAKE tablet TAKE tablet dic 1 TABLET BY 1 TABLET BY TAKE 1 Sports MOUTH EVERY MOUTH EVERY TABLET BY Medicin DAY DAY MOUTH e EVERY DAY levothyroxi levothyroxi No levothyrox [facility] ne 112 mcg ne 112 mcg ine 112 [facility] tablet TAKE tablet TAKE mcg tablet dic 1 TABLET BY 1 TABLET BY TAKE 1 Sports MOUTH EVERY MOUTH EVERY TABLET BY Medicin DAY DAY MOUTH e EVERY DAY losartan 50 losartan 50 No losartan [facility] mg tablet mg tablet 50 mg Orth ope TAKE 1 TAKE 1 tablet dic TABLET BY TABLET BY TAKE 1 Spo rts MOUTH EVERY MOUTH EVERY TABLET BY Medicin DAY IN THE DAY IN THE MOUTH e EVENING EVENING EVERY DAY IN THE EVENING pantoprazol pantoprazol No pantoprazo [facility] e 40 mg e 40 mg le 40 mg [facility] pe tablet,poppy tablet,poppy tablet,del dic yed release yed release ayed S ports TAKE 1 TAKE 1 release [facility] TABLET BY TABLET BY TAKE 1 e MOUTH EVERY MOUTH EVERY TABLET BY DAY DAY MOUTH EVERY DAY spironolact spironolact No spironolac [facility] one 25 mg one 25 mg tone 25 mg [facility] tablet TAKE tablet TAKE tablet dic 1 TABLET BY 1 TABLET BY TAKE 1 Sports MOUTH EVERY MOUTH EVERY TABLET BY Medicin DAY DAY MOUTH e EVERY DAY zolpidem 5 zolpidem 5 No zolpidem 5 [facility] mg tablet mg tablet mg tablet [facility] TAKE 1 TAKE 1 TAKE 1 dic TABLET BY TABLET BY TABLET BY Sports MOUTH MOUTH MOUTH Medicin EVERYDAY AT EVERYDAY AT EVERYDAY e BEDTIME BEDTIME AT BEDTIME amlodipine amlodipine No amlodipine [facility] 5 mg tablet 5 mg tablet 5 mg O rthope TAKE 1 TAKE 1 tablet dic TABLET BY TABLET BY TAKE 1 Spo rts MOUTH EVERY MOUTH EVERY TABLET BY Medicin DAY DAY MOUTH e EVERY DAY amoxicillin amoxicillin No amoxicilli [facility] 875 875 n 875 [facility] mg-potassiu mg-potassiu mg-potassi dic m m um Sports clavulanate clavulanate clavulanat Medic[facility] 125 mg 125 mg e 125 mg e tablet TAKE tablet TAKE tablet 1 TABLET BY 1 TABLET BY TAKE 1 MOUTH TWICE MOUTH TWICE TABLET BY A DAY FOR A DAY FOR MOUTH 10 DAYS 10 DAYS TWICE A DAY FOR 10 DAYS Arnuity Arnuity No Arnuity [facility] Ellipta 100 Ellipta 100 Ellipta [facility] mcg/actuati mcg/actuati 100 d ic on powder on powder mcg/actuat Sports for for ion powder [facility] inhalation inhalation for e INHALE 1 INHALE 1 inhalation PUFF BY PUFF BY INHALE 1 MOUTH DAILY MOUTH DAILY PUFF BY MOUTH DAILY atorvastati atorvastati No atorvastat [facility] n 20 mg n 20 mg in 20 mg [facility] pe tablet TAKE tablet TAKE tablet dic 1 TABLET BY 1 TABLET BY TAKE 1 Sports MOUTH EVERY MOUTH EVERY TABLET BY Medicin DAY DAY MOUTH e EVERY DAY azithromyci azithromyci No azithromyc Paty n 250 mg n 250 mg in 250 mg Or thope tablet TAKE tablet TAKE tablet dic 2 TABLETS 2 TABLETS TAKE 2 Spo rts BY MOUTH BY MOUTH TABLETS BY M edicin TODAY, THEN TODAY, THEN MOUTH e TAKE 1 TAKE 1 TODAY, TABLET TABLET THEN TAKE DAILY FOR 4 DAILY FOR 4 1 TABLET DAYS DAYS DAILY FOR 4 DAYS cephalexin cephalexin No cephalexin [facility] 500 mg 500 mg 500 mg [facility] capsule capsule capsule dic TAKE 1 TAKE 1 TAKE 1 Sports CAPSULE BY CAPSULE BY CAPSULE BY Medicin MOUTH THREE MOUTH THREE MOUTH e TIMES A DAY TIMES A DAY THREE TIMES A DAY doxazosin 2 doxazosin 2 No doxazosin [facility] mg tablet mg tablet 2 mg [facility] pe TAKE 1 TAKE 1 tablet dic TABLET BY TABLET BY TAKE 1 Spo rts MOUTH TWICE MOUTH TWICE TABLET BY Medicin A DAY A DAY MOUTH e TWICE A DAY fluorouraci fluorouraci No fluorourac [facility] l 5 % l 5 % il 5 % [facility] topical topical topical dic cream APPLY cream APPLY cream Sports TO AFFECTED TO AFFECTED APPLY TO Medicin AREAS ON AREAS ON AFFECTED e ARMS AND ARMS AND AREAS ON HANDS TWICE HANDS TWICE ARMS AND DAILY FOR 2 DAILY FOR 2 HANDS WEEKS WEEKS TWICE DAILY FOR 2 WEEKS fluticasone fluticasone No fluticason [facility] propionate propionate e [place] hope 50 50 propionate dic mcg/actuati mcg/actuati 50 S ports on nasal on nasal mcg/actuat M edicin spray,suspe spray,suspe ion nasal e nsion nsion spray,susp INSTILL 2 INSTILL 2 ension SPRAYS EACH SPRAYS EACH INSTILL 2 SIDE DAILY SIDE DAILY SPRAYS FOR NASAL FOR NASAL EACH SIDE DRAINAGE DRAINAGE DAILY FOR AND AND NASAL ALLERGIES ALLERGIES DRAINAGE AND ALLERGIES furosemide furosemide No furosemide [facility] 40 mg 40 mg 40 mg [facility] tablet TAKE tablet TAKE tablet dic 1 TABLET BY 1 TABLET BY TAKE 1 Sports MOUTH EVERY MOUTH EVERY TABLET BY [facility] DAY DAY MOUTH e EVERY DAY gabapentin gabapentin No gabapentin [facility] 600 mg 600 mg 600 mg [facility] tablet TAKE tablet TAKE tablet dic 1 TABLET BY 1 TABLET BY TAKE 1 Sports MOUTH TWICE MOUTH TWICE TABLET BY Medicin A DAY A DAY MOUTH e TWICE A DAY Hibiclens 4 Hibiclens 4 No Hibiclens Pat[facility] % topical % topical 4 % [facility] pe liquid liquid topical dic Apply 1 Apply 1 liquid [facility] application application Apply 1 [facility] every day every day applicatio e by topical by topical n every route as route as day by directed directed topical for 5 days. for 5 days. route as directed for 5 days. hydrocodone hydrocodone No hydrocodon [facility] 5 5 e 5 [facility] mg-acetamin mg-acetamin mg-acetami dic ophen 325 ophen 325 nophen 325 Sports mg tablet mg tablet mg tablet [facility] TAKE 1 TAKE 1 TAKE 1 e TABLET BY TABLET BY TABLET BY MOUTH EVERY MOUTH EVERY MOUTH 6 HOURS 6 HOURS EVERY 6 NEED FOR NEED FOR HOURS PAIN PAIN NEED FOR PAIN Jardiance Jardiance No Jardiance [facility] 10 mg 10 mg 10 mg [facility] tablet TAKE tablet TAKE tablet dic 1 TABLET BY 1 TABLET BY TAKE 1 Sports MOUTH EVERY MOUTH EVERY TABLET BY Medicin DAY DAY MOUTH e EVERY DAY levothyroxi levothyroxi No levothyrox [facility] ne 112 mcg ne 112 mcg ine 112 [facility] tablet TAKE tablet TAKE mcg tablet dic 1 TABLET BY 1 TABLET BY TAKE 1 Sports MOUTH EVERY MOUTH EVERY TABLET BY Medicin DAY DAY MOUTH e EVERY DAY losartan 25 losartan 25 No losartan [facility] mg tablet mg tablet 25 mg Orth ope TAKE 1 TAKE 1 tablet dic TABLET BY TABLET BY TAKE 1 Spo rts MOUTH EVERY MOUTH EVERY TABLET BY Medicin DAY IN THE DAY IN THE MOUTH e EVENING EVENING EVERY DAY IN THE EVENING losartan 50 losartan 50 No losartan [facility] mg tablet mg tablet 50 mg Orth ope TAKE 1 TAKE 1 tablet dic TABLET BY TABLET BY TAKE 1 Spo rts MOUTH EVERY MOUTH EVERY TABLET BY Medicin DAY IN THE DAY IN THE MOUTH e EVENING EVENING EVERY DAY IN THE EVENING mupirocin 2 mupirocin 2 No mupirocin Paty % topical % topical 2 % [facility] pe ointment ointment topical dic APPLY A APPLY A ointment Sport s SMALL SMALL APPLY A Medicin AMOUNT TO AMOUNT TO SMALL e EACJ EACJ AMOUNT TO NOSTRIL NOSTRIL EACJ DAILY DAILY NOSTRIL STARTING 5 STARTING 5 DAILY DAYS PRIOR DAYS PRIOR STARTING 5 TO SURGERY TO SURGERY DAYS PRIOR TO SURGERY pantoprazol pantoprazol No pantoprazo [facility] e 40 mg e 40 mg le 40 mg [facility] pe tablet,poppy tablet,poppy tablet,del dic yed release yed release ayed S ports TAKE 1 TAKE 1 release [facility] TABLET BY TABLET BY TAKE 1 e MOUTH EVERY MOUTH EVERY TABLET BY DAY DAY MOUTH EVERY DAY spironolact spironolact No spironolac [facility] one 25 mg one 25 mg tone 25 mg [facility] tablet TAKE tablet TAKE tablet dic 1 TABLET BY 1 TABLET BY TAKE 1 Sports MOUTH EVERY MOUTH EVERY TABLET BY Medicin DAY DAY MOUTH e EVERY DAY zolpidem 5 zolpidem 5 No zolpidem 5 [facility] mg tablet mg tablet mg tablet [facility] TAKE 1 TAKE 1 TAKE 1 dic TABLET BY TABLET BY TABLET BY Sports MOUTH MOUTH MOUTH Medicin EVERYDAY AT EVERYDAY AT EVERYDAY e BEDTIME BEDTIME AT BEDTIME amlodipine amlodipine No amlodipine Pat[facility] 5 mg tablet 5 mg tablet 5 mg O rthope TAKE 1 TAKE 1 tablet dic TABLET BY TABLET BY TAKE 1 Spo rts MOUTH EVERY MOUTH EVERY TABLET BY Medicin DAY DAY MOUTH e EVERY DAY amoxicillin amoxicillin No amoxicilli [facility] 875 875 n 875 [facility] mg-potassiu mg-potassiu mg-potassi dic m m um Sports clavulanate clavulanate clavulanat Medic[facility] 125 mg 125 mg e 125 mg e tablet TAKE tablet TAKE tablet 1 TABLET BY 1 TABLET BY TAKE 1 MOUTH TWICE MOUTH TWICE TABLET BY A DAY FOR A DAY FOR MOUTH 10 DAYS 10 DAYS TWICE A DAY FOR 10 DAYS Arnuity Arnuity No Arnuity [facility] Ellipta 100 Ellipta 100 Ellipta [facility] mcg/actuati mcg/actuati 100 d ic on powder on powder mcg/actuat Sports for for ion powder [facility] inhalation inhalation for e INHALE 1 INHALE 1 inhalation PUFF BY PUFF BY INHALE 1 MOUTH DAILY MOUTH DAILY PUFF BY MOUTH DAILY atorvastati atorvastati No atorvastat [facility] n 20 mg n 20 mg in 20 mg [facility] pe tablet TAKE tablet TAKE tablet dic 1 TABLET BY 1 TABLET BY TAKE 1 Sports MOUTH EVERY MOUTH EVERY TABLET BY Medicin DAY DAY MOUTH e EVERY DAY azithromyci azithromyci No azithromyc Paty n 250 mg n 250 mg in 250 mg Or thope tablet TAKE tablet TAKE tablet dic 2 TABLETS 2 TABLETS TAKE 2 Spo rts BY MOUTH BY MOUTH TABLETS BY M edicin TODAY, THEN TODAY, THEN MOUTH e TAKE 1 TAKE 1 TODAY, TABLET TABLET THEN TAKE DAILY FOR 4 DAILY FOR 4 1 TABLET DAYS DAYS DAILY FOR 4 DAYS cephalexin cephalexin No cephalexin [facility] 500 mg 500 mg 500 mg [facility] capsule capsule capsule dic TAKE 1 TAKE 1 TAKE 1 Sports CAPSULE BY CAPSULE BY CAPSULE BY Medicin MOUTH THREE MOUTH THREE MOUTH e TIMES A DAY TIMES A DAY THREE TIMES A DAY doxazosin 2 doxazosin 2 No doxazosin Payt mg tablet mg tablet 2 mg Orth[facility] pe TAKE 1 TAKE 1 tablet dic TABLET BY TABLET BY TAKE 1 Spo rts MOUTH TWICE MOUTH TWICE TABLET BY Medicin A DAY A DAY MOUTH e TWICE A DAY fluorouraci fluorouraci No fluorourac Pat[facility] l 5 % l 5 % il 5 % [facility] topical topical topical dic cream APPLY cream APPLY cream Sports TO AFFECTED TO AFFECTED APPLY TO Medicin AREAS ON AREAS ON AFFECTED e ARMS AND ARMS AND AREAS ON HANDS TWICE HANDS TWICE ARMS AND DAILY FOR 2 DAILY FOR 2 HANDS WEEKS WEEKS TWICE DAILY FOR 2 WEEKS Immunizations Ordered Filled Immunization Date Status Comments [facility] e Immunization Name Name Td 2022-05-24 Completed [facility] 00:00:00 [place] [facility] Td 2022-05-24 Completed [facility] 00:00:00 [place] [facility] Td 2022-05-24 Completed [facility] 00:00:00 [place] [facility] Td 2022-05-24 Completed [facility] 00:00:00 [place] [facility] Td 2022-05-24 Completed [facility] 00:00:00 [place] [facility] Td 2022-05-24 Completed [facility] 00:00:00 [place] [facility] Td 2022-05-24 Completed [facility] 00:00:00 [place] [facility] Td 2022-05-24 Completed [facility] 00:00:00 [place] [facility] Td 2022-05-24 Completed [facility] 00:00:00 [place] [facility] Td 2022-05-24 Completed [facility] of 00:00:00 [facility] Pneumococcal 2021-11-25 Completed University o f Polysaccharide, 00:00:00 [place] [facility] ical PPSV23 (PNEUMOVAX) Branch Influenza Virus 2021-11-25 Completed Universit [facility] of Vaccine,quad 00:00:00 [place] [facility],preserve Free Branch 65+ Pneumococcal 2021-11-25 Completed University o f Polysaccharide, 00:00:00 [place] [facility] ical PPSV23 (PNEUMOVAX) Branch Influenza Virus 2021-11-25 Completed Universit y of Vaccine,quad 00:00:00 [place] [facility] Free [facility] 65+ Pneumococcal 2021-11-25 Completed University o f Polysaccharide, 00:00:00 [place] [facility] PPSV23 (PNEUMOVAX) Branch Influenza Virus 2021-11-25 Completed Universit y of Vaccine,quad 00:00:00 [place] [facility],preserve Free [facility] 65+ Pneumococcal 2021-11-25 Completed University o f Polysaccharide, 00:00:00 [place] [facility] PPSV23 (PNEUMOVAX) Branch Influenza Virus 2021-11-25 Completed Universit y of Vaccine,quad 00:00:00 [place] [facility],preserve Free [facility] 65+ Pneumococcal 2021-11-25 Completed University o f Polysaccharide, 00:00:00 [place] [facility] PPSV23 (PNEUMOVAX) Branch Influenza Virus 2021-11-25 Completed Universit y of Vaccine,quad 00:00:00 [place] [facility],preserve Free [facility] 65+ Pneumococcal 2021-11-25 Completed University o f Polysaccharide, 00:00:00 [place] [facility] PPSV23 (PNEUMOVAX) Branch Influenza Virus 2021-11-25 Completed Universit y of Vaccine,quad 00:00:00 [place] [facility] Free [facility] 65+ Pneumococcal 2021-11-25 Completed University o f Polysaccharide, 00:00:00 [place] [facility] PPSV23 (PNEUMOVAX) Branch Influenza Virus 2021-11-25 Completed Universit y of Vaccine,quad 00:00:00 [place] [facility],preserve Free [facility] 65+ Pneumococcal 2021-11-25 Completed University o f Polysaccharide, 00:00:00 [place] [facility] PPSV23 (PNEUMOVAX) Branch Influenza Virus 2021-11-25 Completed Universit y of Vaccine,quad 00:00:00 [place] [facility],preserve Free [facility] 65+ Pneumococcal 2021-11-25 Completed University o f Polysaccharide, 00:00:00 [place] [facility] PPSV23 (PNEUMOVAX) Branch Influenza Virus 2021-11-25 Completed Universit y of Vaccine,quad 00:00:00 [place] [facility] Free [facility] 65+ Pneumococcal 2021-11-25 Completed University o f Polysaccharide, 00:00:00 [place] [facility] PPSV23 (PNEUMOVAX) Branch Influenza Virus 2021-11-25 Completed Universit y of Vaccine,quad 00:00:00 [place] [facility] Free [facility] 65+ Vital Signs Vital Name Observation Time Observation Value Comments Source Systolic blood 2022-07-28 15:13:00 136 mm[Hg] Univer sity of pressure [facility] Diastolic blood 2022-07-28 15:13:00 49 mm[Hg] [facility] pressure [facility] Heart rate 2022-07-28 15:09:00 61 /min [facility] Body weight 2022-07-28 15:09:00 64.864 kg [facility] BMI 2022-07-28 15:09:00 22.40 kg/m2 [facility] Oxygen saturation in 2022-07-28 15:09:00 97 /min [facility] Arterial blood by [facility] Pulse oximetry Branch Systolic blood 2022-07-16 16:26:00 147 mm[Hg] Univer sity of pressure [facility] Diastolic blood 2022-07-16 16:26:00 56 mm[Hg] Unive rsity of pressure [facility] Heart rate 2022-07-16 16:26:00 78 /min [facility] Body temperature 2022-07-16 16:26:00 36.78 Louise Univ ers[facility] Respiratory rate 2022-07-16 16:26:00 18 /min Univ [facility] [place] [facility] [place] Oxygen saturation in 2022-07-16 16:26:00 97 /min University of Arterial blood by [place] [facility] Pulse oximetry Branch Body weight 2022-07-16 09:37:00 62.959 kg [facility] BMI 2022-07-16 09:37:00 21.74 kg/m2 [facility] Body height 2022-07-14 22:54:00 170.2 cm [facility] Systolic blood 2022-06-09 15:32:00 158 mm[Hg] Univer sity of pressure [facility] Diastolic blood 2022-06-09 15:32:00 54 mm[Hg] Unive rsity of pressure [facility] Heart rate 2022-06-09 15:32:00 38 /min [facility] Respiratory rate 2022-06-09 15:32:00 18 /min Univ ers[facility] Body height 2022-06-09 15:32:00 170.2 cm [facility] [place] [facility] Body weight 2022-06-09 15:32:00 63.957 kg [facility] [place] [facility] BMI 2022-06-09 15:32:00 22.08 kg/m2 [facility] Oxygen saturation in 2022-06-09 15:32:00 97 /min University of Arterial blood by [place] [facility] Pulse oximetry Branch Height 2022-04-04 00:00:00 67 [in_i] [facility] Height 2022-03-11 00:00:00 67 [in_i] [facility] BMI (Body Mass 2022-03-11 00:00:00 24.9 kg/m2 [facility] Index) Sports Medicine Body Weight 2022-03-11 00:00:00 159 [lb_av] [facility] Hola [facility] Procedures Procedure Date / Time Performing Clinician Source Performed N-TERMINAL PRO-BNP 2022-07-16 18:42:00 Naren Jenkins [facility] XR CHEST 1 VW 2022-07-16 14:16:45 [facility] MAGNESIUM 2022-07-15 09:34:00 Naren Jenkins [facility] BASIC METABOLIC PANEL (NA, 2022-07-15 09:34:00 Naren Jenkins [facility] K, CL, CO2, GLUCOSE, BUN, Medica l Branch CREATININE, CA) CBC WITH DIFF 2022-07-15 09:34:00 Naren Jenkins [facility] N-TERMINAL PRO-BNP 2022-07-15 09:34:00 [facility] 2022-07-14 22:41:00 [facility] TRANSTHORACIC ECHO (TTE) 2022-07-14 21:30:00 Naren Jenkins [facility] URINALYSIS 2022-07-14 16:57:00 Nida Gil [facility] HB ECG ROUTINE & RHYTHM 2022-07-14 16:18:08 Nida Gil [facility] CBC WITH DIFF 2022-07-14 15:41:00 Nida Gil [facility] LACTIC ACID WHOLE BLOOD 2022-07-14 15:41:00 Nida Gil [facility] XR CHEST 1 VW 2022-07-14 14:49:24 Nida Gil [facility] TROPONIN I 2022-07-14 14:35:00 Nida Gil [facility] HEPATIC FUNCTION PANEL 2022-07-14 14:35:00 Nida Gil [facility] ([id number]) (ALB,T.PRO,BILI Medical Branch T,BU/BC,ALT,AST,ALK PHOS) BASIC METABOLIC PANEL (NA, 2022-07-14 14:35:00 Nida Gil [facility] K, CL, CO2, GLUCOSE, BUN, Medica l Branch CREATININE, CA) RAPID INFLUENZA A/B 2022-07-14 14:35:00 Nida Gil [facility] N-TERMINAL PRO-BNP 2022-07-14 14:35:00 Nida Gil [facility] COVID-19 (ID NOW RAPID 2022-07-14 14:35:00 Nida Gil [facility] TESTING) Medical Branch LAB ONLY COVID 2022-07-14 14:35:00 Nida Gil [facility] INTERPRETATION [facility] CONSENT/REFUSAL FOR 2022-07-14 13:59:24 Doctor Alma, [facility] DIAGNOSIS AND TREATMENT [facility] AUTHORIZATION TO RELEASE 2022-06-09 05:01:00 Doctor Alma, [facility] PHI TO [facility] [id number] 2022-05-19 00:00:00 [id number] 2022-05-19 00:00:00 [facility] [id number] 2022-05-19 00:00:00 [facility] Heart Stent [facility] Vasectomy [facility] Lumbar Spine Surgery [facility] Cholecystectomy [facility] Arthroscopy of Shoulder [facility] Encounters Start End Encounter Admission Attending Care Care Encounter Source Date/Time Date/Time Type Type Clinicians Facility Department ID 2022-04-08 Inpatient KENYA Casiano JUAN ADMI [id number] [facility] 09:00:00 Curry [id number] [place] [facility] 2022-09-09 2022-09-[address] [facility] CATH [id number] [facility] 07:48:00 07:48:00 Radha Griffiths [facility] 2022-08-21 2022-08-21 Outpatient KENYA Delgado [facility] LA0 [id number] [facility] 10:54:00 10:54:00 Noy whitley [facility] 2022-07-29 2022-07-29 [facility]phone [facility] [id number] Univers 00:00:00 00:00:00 Lidya Will HEALTH 350.1.13.10 it y of [place].2.[place] [phone] [place] 5[address]399 [place] OFFICE BUILDING 2022-07-28 2022-07-28 Undergraduate Internship 2, Adc Lab [facility] 1.2.840.114 [id number] Univers 10:00:00 10:15:00 Visit Lidya Germain 350.1.13.10 ity of [place].2.7.2.[place] [id number] Hi dical NAL 353 [facility] 2022-07-28 2022-07-28 [facility] [id number] Univers 09:20:00 09:46:43 LIDYA mikki [facility] 2022-07-28 2022-07-28 Office [facility] 1.2.840.114 [id number] Univers 09:20:00 09:46:43 Visit Lidya PELAEZ 350.1.13.10 i ty of [facility] 4.2.7.2.686 [place] [phone] Hi dical NAL 9 [facility] 2022-07-17 2022-07-17 Transition ENOCH Moraes 1.2.840.114 [id number] Univers 00:00:00 00:00:00 of Care Wendy HAWKINSY 350.1.13.10 [place] y of [place].2.[place] [id number] [facility] 403 Branch 2022-07-14 2022-07-16 Inpatient X JAVED [facility] ANIBAL [id number] Univers 09:04:00 16:00:00 RADHA kaye [facility] 2022-07-14 2022-07-16 Hospital Nida Gil [facility] 1.2.840 .114 [id number] Univers 09:04:00 16:00:00 Encounter Radha Burt 350.1.13.10 ity [place] 4.2.7.2.[place] [id number] [place] [address] Branch 2022-06-09 2022-06-09 Outpatient R PRESTON, [facility] [id number] Univers 10:20:00 10:46:31 DEEPAK francis [facility] 2022-06-09 2022-06-09 Office Preston, [facility] 1.2.840.114 [id number] Univers 10:20:00 10:46:31 Visit Deepak PELAEZ 350.1.13.10 ity of [place] 4.2.7.2.686 [place] [facility] [phone] Hi dical [facility] 2022-06-09 2022-06-09 Outpatient R PRESTON, [facility] [id number] Univers 10:20:00 10:20:00 DEEPAK kaye [facility] 2022-06-09 2022-06-09 Outpatient R PRESTON, [facility] [id number] Univers 10:20:00 10:20:00 DEEPAK kaye [facility] 2022-06-09 2022-06-09 Orders Doctor JASPAL 1.2.840.114 [id number] Univers 00:00:00 00:00:00 Only Unassigned, KOFI 350.1.13.10 ity of [place] [facility] 4.2.7.2.686 Reji as [phone] [facility] 009 Branch 2022-05-23 2022-05-24 Emergency X [facility] ERT [id number] Univers 23:08:00 04:16:00 ALLYSON callawayy [facility] 2022-05-23 2022-05-24 Emergency [facility] [id number] Univers 23:08:00 04:16:00 Allyson PELAEZ 350.1.13.10 ity of [facility] 4.2.7.2.686 [place] [facility] [phone] [facility] 084 Branch 2022-05-15 2022-05-20 Inpatient EM CARROL Jennings INTE.02 [id number] [facility] 10:12:00 14:33:00 Nkoli 46 [facility] 2022-05-14 2022-05-14 Outpatient Cheko Wesley LABO [id number] [facility] 12:24:00 12:24:00 77 [facility] 2022-04-24 2022-04-24 Orders Doctor JASPAL 1.2.840.114 [id number] Univers 00:00:00 00:00:00 Only Unassigned, KOFI 350.1.13.10 ity of [facility] 4.2.7.2.686 Reji as [phone] [address] 2022-04-23 2022-04-23 Telephone [facility] 1.2.688.192 [id number] Univers 00:00:00 00:00:00 Qiangjun [place] 350.1.13.10 ity of [facility] 4.2.7.2.686 [place] [phone] [address] 2022-04-22 2022-04-22 Telephone [facility] 1.2.930.746 [id number] Univers 00:00:00 00:00:00 Qiangjun [place] 350.1.13.10 ity of [facility] 4.2.7.2.686 [place] [phone] Hi dic[address] 2022-04-22 2022-04-22 Orders Doctor JASPAL 1.2.840.114 [id number] Univers 00:00:00 00:00:00 Only Unassigned, KOFI 350.1.13.10 ity of [place] [facility] 4.2.7.2.686 Reji as [phone] [address] 2022-04-21 2022-04-21 Telephone [facility] 1.2.406.129 [id number] Univers 00:00:00 00:00:00 Qiangjun [place] 350.1.13.10 ity [place] 4.2.7.2.686 [place] [phone] Hi dic[place]athy [place] 408419 [facility] 2022-04-17 2022-04-17 Telephone [facility] 1.2.324.878 [id number] Univers 00:00:00 00:00:00 Qiangjun [place] 350.1.13.10 ity of [place] 4.2.7.2.[place] [phone] Hi dical NAL 059 [facility] 2022-04-15 2022-04-15 Orders Doctor JASPAL 1.2.840.114 [id number] Univers 00:00:00 00:00:00 Only Unassigned, KOFI 350.1.13.10 ity of [facility] 4.2.7.2.686 Reji as [phone] [address] 2022-04-07 2022-04-07 Telephone [facility] 1.2.449.608 [id number] Univers 00:00:00 00:00:00 Deepak PELAEZ 350.1.13.10 ity of [place] 4.2.7.2.686 [place] [id number] Hi dical NAL 059 [facility] 2022-04-04 2022-04-04 Outpatient FOG_Burke_R AOSM AOSM [id number] Paty 02:39:00 02:39:00 Natty [id number] Ortho pe dic Sports Medic[facility] 2022-04-04 2022-04-04 Outpatient JENNIFER Casiano AOSM [id number] e-0 00:00:00 00:00:00 Curry Will [id number] 2022-04-04 2022-04-04 Curry Will AOSM [place] - Ortho [id number] Paty 00:00:00 00:00:00 MD Oh: [place] - Orthope [address] [address] FOG_Ofc dic Enrique, [employer] [address] [place] [address] , Ph. [phone] 2022-04-01 2022-04-01 Orders Doctor JASPAL 1.2.840.114 [id number] Univers 00:00:00 00:00:00 Only Unassigned, KOFI 350.1.13.10 ity of [facility] 4.2.7.2.686 Reji as [phone] [address] 2022-03-31 2022-03-31 Outpatient MIGUEL Casiano LABO [id number] [facility] 16:24:00 16:24:00 Curry Paul [facility] 2022-03-31 2022-03-31 Outpatient EL JUAN Casiano [id number] [facility] 08:00:00 08:00:00 Curry Adela [facility] 2022-03-31 2022-03-31 Telephone [place], [facility] 1.2.342.565 [id number] [facility] 00:00:00 00:00:00 Deepak PELAEZ 350.1.13.10 ity [facility] 4.2.7.2.686 [place] [phone] Hi dical NAL 059 [facility] 2022-03-11 2022-03-11 Outpatient FOG_Burke_R AOSM AOSM [id number] Paty 03:13:00 03:13:00 Natty [id number] Ortho pe dic Sports Medicin e 2022-03-11 2022-03-11 Curry Will AOSM [place] - Ortho Paty 00:00:00 00:00:00 MD Oh: Soraya Roca - Orthope [address] [address] FOG_Ofc dic [place], [place] [address], [place] [address] , Ph. [phone] 2022-03-11 2022-03-11 Outpatient JENNIFER Casiano AO [id number] 00:00:00 00:00:00 Curry Will [id number] 2022-03-03 2022-03-03 Outpatient R PRESTON, [facility] [id number] [facility] 10:00:00 10:09:09 DEEPAK kaye o f [facility] 2022-03-03 2022-03-03 Office Preston, [facility] 1.2.840.[id number] [place] [address] 10:00:00 10:09:09 Visit Deepak PELAEZ 350.1.13.10 ity carroll [facility] 4.2.7.2.686 [place] [phone] Hi dical NAL 059 [facility] 2022-03-03 2022-03-03 Outpatient R PRESTON, [facility] [id number] Univers 10:00:00 10:00:00 DEEPAK callawayy o yana [facility] 2022-02-22 2022-02-22 Hospital [facility] 1.2.117.402 [id number] Univers 10:46:45 23:59:00 Encounter [employer] 350.1.13.10 ity of [place] 4.2.7.2.686 Reji as FELICITA?BLEA [phone] Hi dical JAYSONEY 8[address] [place] MEDICAL OFFICE [facility] 2022-02-22 2022-02-22 Outpatient [facility] [id number] Univers 10:40:00 10:58:27 BANNERABILIO [facility] 2022-02-22 2022-02-22 Urgent Maliha [facility] 1.2.840.114 [id number] Univers 10:40:00 10:58:27 Care [place] [facility] 350.1.13.10 ity of [place] 4.2.7.2.686 Reji as FELICITA?BLEA [phone] Hi hebermatilda TYLEREY [address] [facility] OFFICE [facility] 2022-02-11 2022-02-11 Outpatient R [facility] [id number] Univers 10:00:00 10:00:00 DEEPAK kaye o [facility] 2022-02-11 2022-02-11 Outpatient R [facility] [id number] Univers 10:00:00 10:00:00 DEEPAK kaye o [facility] 2022-02-10 2022-02-10 Undergraduate Internship Leoncio, Savita Lab Main [facility] 1.2.8 40.114 [id number] Univers 09:45:00 10:00:00 Visit Deepak Leavitt AVA 350.1.13.10 ity of [place] 4.2.7.2.686 [place] [id number] Hi dical RADHA 353 [facility] 2022-02-10 2022-02-10 [facility] [id number] Univers 09:45:00 09:45:00 DEEPAK ity o [facility] 2022-02-10 2022-02-10 Orders Doctor SHAY 1.2.840.114 [id number] Univers 00:00:00 00:00:00 Only Unassigned, KOFI 350.1.13.10 ity of [place] [facility] 4.2.7.2.686 Reji as [phone] [address] 2022-02-06 2022-02-06 Outpatient FOG_Burke_R AOSM AOSM [id number] Paty 11:45:00 11:45:00 Natty [id number] Ortho pe dic Sports Medicin e 2022-01-22 2022-01-22 Outpatient R PRESTON, [facility] [id number] Univers 13:40:00 14:04:23 DEEPAK mikki francis [facility] 2022-01-22 2022-01-22 Office [facility], [facility] 1.2.840.114 [id number] Univers 13:40:00 14:04:23 Visit Deepak PELAEZ 350.1.13.10 ity of [facility] 4.2.7.2.686 [place] [phone] Hi dical NAL 059 [facility] 2022-01-22 2022-01-22 Outpatient R PRESTON, [facility] [id number] Univers 13:40:00 14:04:23 DEEPAK mikki francis [facility] 2022-01-09 2022-01-09 Outpatient R PRESTON, [facility] [id number] Univers 00:00:00 00:00:00 DEEPAK francis [facility] 2021-12-27 2021-12-27 Undergraduate Internship Leoncio, Savita Lab Main [facility] 1.2.8 40.114 [id number] Univers 09:00:00 09:15:00 Visit Preston Scottanjum LATANYA 350.1.13.10 ity of [facility] 4.2.7.2.686 [place] [phone] Hi dical NAL 353 [facility] 2021-12-27 2021-12-27 Outpatient R PREST[place], [facility] [id number] Univers 09:00:00 09:00:00 DEEPAK francis [facility] 2021-12-27 2021-12-27 Orders Doctor SHAY 1.2.840.114 [id number] Univers 00:00:00 00:00:00 Only Unassigned, KOFI 350.1.13.10 ity of [place] [facility] 4.2.7.2.686 Reji as [phone] [facility] 009 Branch 2021-12-24 2021-12-24 [facility] 1.2.715.758 [id number] Univers 00:00:00 00:00:00 Deepak [place] 350.1.13.10 ity of [facility] 4.2.7.2.686 [place] [phone] [facility] 059 [facility] 2021-12-19 2021-12-19 [facility] 1.2.840.114 [id number] Univers 09:38:51 23:59:00 Encounter Mikececeanjum [place] 350.1.13.10 ity of [facility] 4.2.7.2.686 [place] C[place]US [id number] [facility] [address] [place] 2021-12-19 2021-12-19 [facility] 1.2.840.114 [id number] Univers 09:37:16 09:37:16 Encounter Mikececeanjum [place] 350.1.13.10 ity of [place] 4.2.7.2.686 [place] C[place]US [id number] [facility] 8[address] [place] 2021-12-19 2021-12-19 [facility] 1.2.840.114 [id number] Univers 09:36:58 09:36:58 Encounter Scottanjum [place] 350.1.13.10 ity of [place] 4.2.7.2.686 [place]US [id number] [facility] 8[address] [place] 2021-12-19 2021-12-19 Outpatient R [facility] [id number] Univers 09:36:36 09:36:36 DEEPAK kaye o f [facility] 2021-12-19 2021-12-19 [facility] 1.2.840.114 [id number] Univers 09:36:36 09:36:36 Encounter Deepak VA[place]ZTON 350.1.13.10 ity of [place] 4.2.7.2.686 [place] [facility] [id number] [facility] [address] [place] 2021-12-14 2021-12-14 [facility]phone [facility] 1.2.730.159 [id number] Univers 00:00:00 00:00:00 Deepak PELAEZ 350.1.13.10 ity of [facility] 4.2.7.2.686 [place] [phone] Hi dical NAL 059 [facility] 2021-12-12 2021-12-12 Outpatient R [facility] [id number] Univers 15:47:19 23:59:00 DEEPAK kaye o f [facility] 2021-12-12 2021-12-12 Outpatient R [facility] [id number] Univers 10:00:00 10:21:02 DEEPAK kaye o f [facility] 2021-12-12 2021-12-12 Office [facility] 1.2.840.114 [id number] Univers 10:00:00 10:21:02 Visit Deepak PELAEZ 350.1.13.10 ity of [facility] 4.2.7.2.686 [place] [phone] Hi dical NAL 059 [facility] 2021-12-12 2021-12-12 Orders Doctor JASPAL 1.2.840.114 [id number] Univers 00:00:00 00:00:00 Only Unassigned, KOFI 350.1.13.10 ity of [facility] 4.2.7.2.686 Reji as [phone] [facility] 009 Branch 2021-11-26 2021-11-26 Transition ENOCH Millan 1.2.840.114 [id number] Univers 00:00:00 00:00:00 of Care El HOUSER 350.1.13.10 ity of [place] 4.2.7.2.686 [place] [id number] [facility] 403 Branch 2021-11-22 2021-11-25 Inpatient Darwin ANNA [facility] [id number] Univers 12:35:00 11:54:00 DOUG ity of [facility] 2021-11-22 2021-11-25 Hospital Singer Felipe [facility] 1.2.840.1 [id number] Univers 12:35:00 11:54:00 Encounter Doug Anna 350.1.13.10 ity of [place]7.2.[place] [facility] [phone] [facility] [address]81 Branch 2021-05-15 2021-05-15 Letter JASPAL Garcia 1.2.840.114 [id number] Univers 00:00:00 00:00:00 (Out) Delilah KIRBY 350.1.13.10 it y of [facility] 4.2.7.2.686 [place] as [phone] [facility] 019 Branch 2021-05-13 2021-05-13 Outpatient Racheal UGALDE [facility] [id number] Univers 17:30:00 17:30:00 EVGENY ity of [facility] 2021-05-13 2021-05-13 Orders Doctor SHAY 1.2.840.114 [id number] Univers 00:00:00 00:00:00 Only Unassigned, KOFI 350.1.13.10 ity of [facility] 4.2.7.2.686 Reji as [phone] [facility] 009 Branch 2021-05-13 2021-05-13 Letter Doctor SHAY 1.2.840.114 [id number] Univers 00:00:00 00:00:00 (Out) Unassigned, KOFI 350.1.13.10 ity of [facility] 4.2.7.2.686 Reji as [phone] [facility] 044 Branch 2021-05-13 2021-05-13 Letter Doctor HSAY 1.2.840.114 [id number] Univers 00:00:00 00:00:00 (Out) Unassigned, KOFI 350.1.13.10 ity of [facility] 4.2.7.2.686 Reji as [phone] [facility] 044 Branch 2020-09-06 2020-09-06 Transition Enoch Millan 1.2.840.114 [id number] 00:00:00 00:00:00 of Care El Houser 350.1.13.10 [place] 4.2.7.2.686 [id number] [id number] 2020-09-06 2020-09-06 Transition Enoch Millan 1.2.840.114 [id number] Univers 00:00:00 00:00:00 of Care El Houser 350.1.13.10 ity of [place] [phone] [facility] [address] 2020-08-23 2020-09-05 [facility] 1.2.840.1 14 [id number] 09:08:00 12:43:00 Encounter Devaughn Lynn 350.1.13.10 [place] 4.2.7.2.686 [place] [phone] 2020-08-23 2020-09-05 Inpatient X DEVAUGHN LYNN [facility] [id number] Univers 09:08:00 12:43:00 ity of [facility] 2020-08-23 2020-09-05 [facility] 1.2.840.1 14 [id number] Univers 09:08:00 12:43:00 Encounter Devaughn Lynn 350.1.13.10 ity of [place] [phone] [facility] [address] 2020-08-23 2020-08-23 Urgent Provider, [facility] [id number] 08:08:47 08:28:47 [facility] 350.1.13.10 Care [place] 4.2.7.2.686 Professio [phone] [place] [address] [address] 2020-08-23 2020-08-23 Urgent Provider, [facility] 1.2.840.114 [id number] Univers 08:08:47 08:28:47 Care [facility] 350.1.13.10 ity of [place] 4.2.7.2.686 Reji as Professio [phone] Hi dical [address] Office [address] One 2020-08-23 2020-08-23 Outpatient R [facility] [id number] Univers 08:20:00 08:20:00 LALY kaye [facility] Results Test Description Test Time Test Comments Results Result Comments Source - XR CHEST 1 V 2022-09-09 13:00:00 [facility] 1935 Sex: M Name: DIMITRIS DOWNEY [facility] : 1935 Age/S: 87 / M [address] #: [id number] Loc: [place] [address] Phys: Radha Ceron MD Acct: [id number] Dis Date: Status: [facility] PHONE #: [phone] Exam Date: 09/09/2022 1248 FAX #: Reason: POST BIVENTRICULAR ICD INSERTION EXAMS: CPT: [id number] XR CHEST 1 V 77998 Fluoro Time: DAP (Gy m2): Air Kerma (mGy): CHEST, SINGLE VIEW LOCATION: H30 HISTORY: Pacemaker placement. A single view of the chest at 12:48 PM was compared to a prior exam from May 14, 2022. FINDINGS: A left chest pacing device and cardiac leads have been placed in good position without pneumothorax. Lungs are clear otherwise. Heart size and central pulmonary vasculature are mildly prominent. IMPRESSION: Uncomplicated placement of a left chest pacing device and cardiac leads. at 1300 Reported and signed by: Bernabe Leblanc Jr., M.D. CC: Radha Ceron MD; Alber Whitfield MD PAGE 1 Signed Report Name: DIMITRIS DOWNEY [facility] : 1935 Age/S: 87 / M [address] [address] #: [id number] Loc: [place] [address] Phys: Radha Ceron MD Acct: [id number] Dis Date: Status: REG SDC PHONE #: [phone] Exam Date: 09/09/2022 1248 FAX #: Reason: POST BIVENTRICULAR ICD INSERTION EXAMS: CPT: [id number] XR CHEST 1 V 79764 Fluoro Time: DAP (Gy m2): Air Kerma (mGy): (Continued) Technologist: COLLETTE PECK Trnscb Date/Time: 09/09/2022 (1300) [email or web address] Orig Print D/T: S: 09/09/2022 (6733) PAGE 2 Signed Report PROTHROMBIN TIME 2022-09-09 09:22:00 Test Item Value Reference Range Interpretation Comme nts PT PATIENT (test code = PTP) 10.8 SECONDS 9.3-12.9 N INTERNATIONAL NORMAL RATIO 1.00 INR Unit 0.8-1.2 N TARGET INR BY INDICATION (test code = INR) Indication INR1. Prophylaxis of venous thrombos is 2.0 - 3.0 (orthopedic conchita liam), Prophylaxis of venous thrombosis (oth er than high-risk surge ry), Treatment of Deep Vein Thrombosis/Pulm onary Embolism, Prevention of s ystemic embolism - Tissue heart valves, Acute Myocardial Infa rction (to prevent systemi c embolism), Valvular heart disease, Acute Myocardial Infa rction (to prevent systemi c embolism), Valvular heart disease, Atrial Fibrillation, B ileaflet mechanical valv e in aortic position.2. Mec hanical prosthetic valv es (high risk), 2.5 - 3.5 Prese nce of Lupus Anticoagulant o r Antiphospholipi d Antibodies, Prevention of s ystemic embolism - Acute Myocard ial Infarction (to prevent rec urrent infarct). THROMBOPLASTIN TIME [id number] 09:22:00 Test Item Value Reference Range Interpretation Comments THROMBOPLASTIN TIME PARTIAL 31.0 SECONDS 26-35 N (test code = PTT) BASIC METABOLIC [id number] 11:05:00 Test Item Value Reference Range Interpretation Comments SODIUM (test code = 145 mmol/L 134-147 N NA) POTASSIUM (test 4.3 mmol/L 3.4-5.0 N code = K) CHLORIDE (test code 109 mmol/L 100-108 H = CL) CARBON DIOXIDE 34 mmol/L 21-32 H (test code = CO2) ANION GAP (test 2.0 GAP calc 4.0-15.0 L code = GAP) GLUCOSE (test code 97 MG/DL 70-110 N = GLU) BLOOD UREA NITROGEN 23 MG/DL 7-18 H (test code = BUN) GLOMERULAR 58 estGFR >60 L The Glomerular FILTRATION RATE Filtration R ate is a (test code = GFR) calculated parameterbased on serum Creatinin e, patient age and sex. GFR valuesless than 60 mL/min/1.73 squ are meters are milan cative ofChronic Kidne y Disease. Values less than 15 mL/min/1.73squa re meters indicate Kidney failure. The calculation for GFR is based on the CK D-EPI (2020) calculat ion. This formulais race indifferent and is the recommended for moses for GFRby the N [facility] on for Adults.The GFR will not calculate i f the sex is unknown or if thepatient's ag e is <18 years. CREATININE (test 1.2 MG/DL 0.8-1.3 N code = CREAT) CALCIUM (test code 9.0 MG/DL 8.5-10.1 N = CA) CBC W/AUTO [id number] 10:52:00 Test Item Value Reference Range Interpretation Comments WHITE BLOOD CELL (test code = 6.0 K/mm3 3.5-11.0 N WBC) RED BLOOD CELL (test code = 3.78 M/mm3 4.70-6.10 L RBC) HEMOGLOBIN (test code = HGB) 11.2 G/DL 12.3-15.9 L HEMATOCRIT (test code = HCT) 35.1 % 35.8-46.7 L MEAN CELL VOLUME (test code = 92.9 Fl 86.3-98.9 N MCV) MEAN CELL HGB (test code = MCH) 29.6 pg 28.9-34.4 N MEAN CELL HGB CONCETRATION 31.9 G/DL 32.1-34.5 L (test code = MCHC) RED CELL DISTRIBUTION WIDTH 13.8 SD 11.5-14.5 N (test code = RDW) PLATELET COUNT (test code = 244 K/mm3 150-450 N PLT) MEAN PLATELET VOLUME (test code 9.70 fL 7.0-9.6 H = MPV) NEUTROPHIL % (test code = NT%) 66.7 % 40-76 N IMMATURE GRANULOCYTE % (test 0.2 % 0.0-5.0 N code = IG%) LYMPHOCYTE % (test code = LY%) 16.1 % 20.5-51.1 L MONOCYTE % (test code = MO%) 9.0 % 1.7-9.3 N EOSINOPHIL % (test code = EO%) 7.5 % 0.0-6.0 H BASOPHIL % (test code = BA%) 0.5 % 0.0-2.0 N NUCLEATED RBC % (test code = 0.0 /100WBC% 0.0-1.0 N NRBC%) NEUTROPHIL # (test code = NT#) 4.0 K/mm3 1.8-7.6 N IMMATURE GRANULOCYTE # (test 0.01 x10 3/uL 0.00-0.03 N code = IG#) LYMPHOCYTE # (test code = LY#) 1.0 K/mm3 0.6-3.0 N MONOCYTE # (test code = MO#) 0.5 K/mm3 0.2-1.5 N EOSINOPHIL # (test code = EO#) 0.5 K/mm3 0.0-0.4 H BASOPHIL # (test code = BA#) 0.0 K/mm3 0.0-0.2 N NUCLEATED RBC # (test code = 0.0 K/mm3 0.00-0.01 N NRBC#) MANUAL DIFF REQUIRED (test code NO DIFF/SCN CRITERIA = MDIFF) N-TERMINAL [id number] 12:50:51 Test Item Value Reference Range Interpretation Comments NT-proBNP (test code 45321 pg/mL See_Comment H [Autom ated = 8629541905) message] The system which generated this result transmitted reference range : <=450. The reference range was not used to interpret this result as normal/abnormal . SRINI (test code = SRINI) Biotin has been reported to cause a negative bias, interpret results relative to patient's use of biotin. Lab Interpretation Abnormal (test code = 54681-4) [facility] Metabolic Panel (NA, K, CL, CO2, GLUCOSE, BUN, CREATININE, CA)2022-07-15 11:30:38 Test Item Value Reference Range Interpretation Comments NA (test code = 143 mmol/L 135-145 8458878219) K (test code = 4.0 mmol/L 3.5-5.0 6168780542) CL (test code = 104 mmol/L 98-108 8833264039) CO2 TOTAL (test code = 31 mmol/L 23-31 3622849704) AGAP (test code = 2-16 7843989426) BUN (test code = 24 mg/dL 7-23 H 6958334711) GLUCOSE (test code = 97 mg/dL 70-110 0706528964) CREATININE (test code = 1.22 mg/dL 0.60-1.25 2426469571) CALCIUM (test code = 8.7 mg/dL 8.6-10.6 3542384450) eGFR (test code = mL/min/1.73m2 3570633722) SRINI (test code = SRINI) Association of Glomerular Filtration Rate (GFR) and Staging of Kidney Disease* + --+ --+ ------+| GFR (mL/min/1.73 m2) ?| With Kidney Damage ?| ?Without Kidney Damage+ --------+ --------+ +| ?>90 ?| ?Stage one ?| ? Normal ?+ ---+ ---+ -------+| ?60-89 ?| ?Stage two ?| ? Decreased GFR ? + --+ --+ ------+| ?30-59 ?| ?Stage three ?| ? Stage three ? + --+ --+ ------+| ?15-29 ?| ?Stage four ? | ? Stage four ?+ ---+ ---+ -------+| ?<15 (or dialysis) ? ?| ?Stage five ? | ? Stage five ?+ ---+ ---+ -------+ *Each stage assumes the associated GFR level has been in effect for at least three months. ?Stages 1 to 5, with or without kidney disease, indicate chronic kidney disease. Notes: Determination of stages one and two (with eGFR >59mL/min/1.73 m2) requires estimation of kidney damage for at least three months as defined by structural or functional abnormalities of the kidney, manifested by either:Pathological abnormalities or Markers of kidney damage (including abnormalities in the composition of the blood or urine or abnormalities in imaging tests). Lab Interpretation Abnormal (test code = 12993-1) [facility] [id number] 11:14:19 Test Item Value Reference Range Interpretation Comments MAGNESIUM (test code = 3011276003) 2.1 mg/dL 1.7-2.4 Lab Interpretation (test code = Normal 38605-9) [facility] with [id number] 09:56:49 Test Item Value Reference Range Interpretation Comments WBC (test code = See_Comment [Automated 6690-2) message] The sy stem which generated this result transmitted reference range : 4.20 - 10.70 10*3/?L. The reference range was not used to interpret this result as normal/abnormal . RBC (test code = See_Comment L [Automated 789-8) message] The sy stem which generated this result transmitted reference range : 4.26 - 5.52 10*6/?L. The reference range was not used to interpret this result as normal/abnormal . HGB (test code = 11.9 g/dL 12.2-16.4 L 718-7) HCT (test code = 36.8 % 38.4-49.3 L 4544-3) MCV (test code = 88.0 fL 81.7-95.6 787-2) MCH (test code = 28.5 pg 26.1-32.7 785-6) MCHC (test code = 32.3 g/dL 31.2-35.0 786-4) RDW-SD (test code = 48.1 fL 38.5-51.6 43284-4) RDW-CV (test code = 15.0 % 12.1-15.4 788-0) PLT (test code = See_Comment [Automated 777-3) message] The sy stem which generated this result transmitted reference range : 150 - 328 10*3/ ?L. The reference r lee was not used to interpret this result as normal/abnormal . MPV (test code = 10.6 fL 9.8-13.0 92912-5) NRBC/100 WBC (test See_Comment [Automat ed code = 4763976913) message] The system which generated this result transmitted reference range : 0.0 - 10.0 /100 WBCs. The refer ence range was not u sed to interpret th is result as normal/abnormal . NRBC x10^3 (test code See_Comment [Auto mated = 1946033711) message] The s ystem which generated this result transmitted reference range : 10*3/?L. The reference range was not used to interpret this result as normal/abnormal . GRAN MAT (NEUT) % 64.6 % (test code = 770-8) IMM GRAN % (test code 0.30 % = 7099420867) LYMPH % (test code = 17.9 % 736-9) MONO % (test code = 10.2 % 5905-5) EOS % (test code = 6.3 % 713-8) BASO % (test code = 0.7 % 706-2) GRAN MAT x10^3(ANC) 4.68 10*3/uL 1.99-6.95 (test code = 8792403941) IMM GRAN x10^3 (test 0.00-0.06 code = 6820312774) LYMPH x10^3 (test code 1.30 10*3/uL 1.09-3.23 = 731-0) MONO x10^3 (test code 0.74 10*3/uL 0.36-1.02 = 742-7) EOS x10^3 (test code = 0.46 10*3/uL 0.06-0.53 711-2) BASO x10^3 (test code 0.05 10*3/uL 0.01-0.09 = 704-7) Lab Interpretation Abnormal (test code = 24994-0) [facility]ansthor[facility] echo (TTE)2022-07-15 01:43:38 Test Item Value Reference Range Interpretation Comments Height (test code = in 2311373759) Weight (test code = lbs 4712228887) Systolic BP (test code = mmHg 9239362943) Diastolic BP (test code mmHg = 6748494592) Heart Rate (test code = bpm 2944411696) BSA (test code = 1.74 m2 3494373012) LVIDD (test code = 5.60 cm 1982009462) Left Ventricular End 154.0 mL Diastolic Volume by Teichholz Method (test code = 6071822) IVS (test code = 1.27 cm 0137634868) Interventricular Septum 1.27 cm Diastolic Thickness by 2D (test code = 8967933) LVPWD (test code = 1.11 cm 4039482776) PW (test code = 1.11 cm 0.6-1.3 1377117416) EF(Teich) (test code = 25.00 % 8970254407) LVIDS (test code = 5.00 cm 3130303330) Left Ventricular End 115.6 mL Systolic Volume by Teichholz Method (test code = 6028226) FS (test code = 12 % 1854878165) EF - 2D (test code = 25.00 % 25953353) LVOT diameter (test code 2.08 cm = 0500687186) LVOT area (test code = 3.40 cm2 0529142513) ACS (test code = 1.76 cm 9968515535) Ao root diam (test code 3.20 cm = 8755215079) Aortic root (test code = 3.2 cm 8446674329) Ao root annulus (test 3.2 cm code = 0728345843) LA size (test code = 4.3 cm 5205779184) E wave decelartion time 0.18 s (test code = 0160518201) MV Peak E Kaia (test code 123.4 cm/s = 5192292004) MV Peak A Kaia (test code 92.5 cm/s = 2397987858) E/A ratio (test code = ratio 0094047667) MR max PG (test code = 133.90 mm[Hg] 7156809100) MR max kaia (test code = 578.50 cm/s 2018331038) Mr max kaia (test code = 578.5 m/s 4321548613) MV Prop V (test code = 38.30 cm/s 5881432078) Tapse (test code = 1.78 cm 0265656930) TR Peak Kaia (test code = 392.5 cm/s 1098983472) Triscuspid Valve mmHg Regurgitation Peak Gradient (test code = 7898469926) LVOT stroke volume (test 75.80 cm3 code = 4567887865) LVOT peak kaia (test code 105.5 cm/s = 2594931903) LVOT mn grad (test code mmHg = 3251789605) AV LVOT peak gradient mmHg (test code = 2133386658) LVOT peak VTI (test code 22.3 cm = 3850280541) LV V1 mean (test code = 61.80 cm/s 9505121383) Aortic valve mean 79.5 cm/s velocity (test code = 2469258856) Ao peak kaia (test code = 134.1 cm/s 0231326803) Ao VTI (test code = 27.3 cm 1027624537) AV area by cont VTI 2.8 cm2 (test code = 8475741772) AV area peak kaia (test 2.7 cm2 code = 3101769416) Ao max PG (test code = 7.20 mm[Hg] 9941256250) AV peak gradient (test mmHg code = 6603325449) AV valve area (test code 2.80 cm2 = 8582242406) AV mean gradient (test mmHg code = 4263653191) AV regurgitation 377.8 ms pressure 1/2 time (test code = 3345181559) AI dec slope (test code 302.00 cm/s2 = 8460091537) AI max kaia (test code = 389.50 cm/s 9038948547) AI max PG (test code = 60.70 mm[Hg] 4344099490) Radiology Study observation (narrative) (test code = 21731-7) SRINI (test code = SRINI) Table formatting from the original result was not included. ?Left?Ventricle: Left ventricle is mildly dilated. Septal motion is consistent with bundle branch block. . Severe global hypokinesis present. Normal systolic function with a visually estimated EF of 20 - 25%. There is pseudonormal diastolic dysfunction. Elevated left ventricular filling pressure. ?Right?Ventricle: Mildly reduced systolic function. ?Tricuspid?Valve: Right ventricular systolic pressure is greater than 60 mmHg. ?RA pressure is 0-5 mmHg. ?Left?Atrium: Left atrium is severely dilated. ?Pericardium: Left pleural effusion. VitalsHeight Weight BSA (Calculated - sq m) BP Pulse 5' 7" (1.702 m) 130 lb (59 kg) 1.67 sq meters 141/64 56 Left VentricleLeft ventricle is mildly dilated. Septal motion is consistent with bundle branch block. . Severe global hypokinesis present. Normal systolic function with a visually estimated EF of 20 - 25%. There is pseudonormal diastolic dysfunction. Elevated left ventricular filling pressure.Right VentricleRight ventricle size is normal. Mildly reduced systolic function.Left AtriumLeft atrium is severely dilated.Right AtriumRight atrium size is normal.Mitral ValveMildly thickened leaflets. Mild transvalvular regurgitation.Tricusp id ValveTricuspid valve is grossly normal. Mild transvalvular regurgitation. Right ventricular systolic pressure is greater than 60 mmHg. RA pressure is 0-5 mmHg.Aortic ValveTricuspid. Mildly thickened cusps. Mildly calcified cusps. Mild transvalvular regurgitation.Pulmoni c ValveNot well visualized. Trace transvalvular regurgitation.Ascendi ng AortaNormal sized aorta.PericardiumThe pericardium is normal. No pericardial effusion. Left pleural effusion.Study DetailsStudy quality was adequate. A complete echocardiogram was performed using 2D, color flow Doppler and spectral Doppler. The apical, parasternal, subcostal and suprasternal views were obtained. [facility] [id number] 23:13:32 Test Item Value Reference Interpretation Comments Range TROPONIN I (test 0.024 ng/mL See_Comment [Automated code = 6258958900) message] The system which generated this result transmitted reference range : <=0.034. The reference range was not used to interpret this result as normal/abnormal . SRINI (test code = Reference (Normal) SRINI) Range (defined by the 99th percentile reference limit): <= 0.034 ng/mL Note: Cardiac troponin begins to rise 3-4 hours after the onset of ischemia. Repeat in 4-6 hours if the sample was drawn within 3-4 hours of the onset of the symptom and found normal. Diagnosis of myocardial injury is made with acute changes in cTn concentrations with at least one serial sample above the 99th percentile upper reference limit (URL), taken together with the patient's clinical presentation. Biotin has been reported to cause a negative bias, interpret results relative to patient's use of biotin. Lab Interpretation Normal (test code = 33026-8) [facility] [id number] 06:23:00 Test Item Value Reference Range Interpretation Comments SODIUM (test code = NA) 143 mmol/L 134-147 N POTASSIUM (test code = 5.4 mmol/L 3.4-5.0 H K) CHLORIDE (test code = 106 mmol/L 100-108 N CL) CARBON DIOXIDE (test 35 mmol/L 21-32 H code = CO2) ANION GAP (test code = 2.0 GAP calc 4.0-15.0 L GAP) GLUCOSE (test code = 140 MG/DL 70-110 H GLU) BLOOD UREA NITROGEN 34 MG/DL 7-18 H (test code = BUN) GLOMERULAR FILTRATION >=60 max estimate >60 RATE (test code = GFR) estGFR CREATININE (test code = 1.0 MG/DL 0.8-1.3 N CREAT) CALCIUM (test code = CA) 9.2 MG/DL 8.5-10.1 N CBC W/AUTO [id number] 06:09:00 Test Item Value Reference Range Interpretation Comments WHITE BLOOD CELL (test code = 10.6 K/mm3 3.5-11.0 N WBC) RED BLOOD CELL (test code = 4.58 M/mm3 4.70-6.10 L RBC) HEMOGLOBIN (test code = HGB) 12.6 G/DL 12.3-15.9 N HEMATOCRIT (test code = HCT) 40.8 % 35.8-46.7 N MEAN CELL VOLUME (test code = 89.1 Fl 86.3-98.9 N MCV) MEAN CELL HGB (test code = MCH) 27.5 pg 28.9-34.4 L MEAN CELL HGB CONCETRATION 30.9 G/DL 32.1-34.5 L (test code = MCHC) RED CELL DISTRIBUTION WIDTH 14.3 SD 11.5-14.5 N (test code = RDW) PLATELET COUNT (test code = 258 K/mm3 150-450 N PLT) MEAN PLATELET VOLUME (test code 10.90 fL 7.0-9.6 H = MPV) NEUTROPHIL % (test code = NT%) 88.9 % 40-76 H IMMATURE GRANULOCYTE % (test 0.6 % 0.0-5.0 N code = IG%) LYMPHOCYTE % (test code = LY%) 6.7 % 20.5-51.1 L MONOCYTE % (test code = MO%) 3.7 % 1.7-9.3 N EOSINOPHIL % (test code = EO%) 0.0 % 0.0-6.0 N BASOPHIL % (test code = BA%) 0.1 % 0.0-2.0 N NUCLEATED RBC % (test code = 0.0 /100WBC% 0.0-1.0 N NRBC%) NEUTROPHIL # (test code = NT#) 9.4 K/mm3 1.8-7.6 H IMMATURE GRANULOCYTE # (test 0.06 x10 3/uL 0.00-0.03 H code = IG#) LYMPHOCYTE # (test code = LY#) 0.7 K/mm3 0.6-3.0 N MONOCYTE # (test code = MO#) 0.4 K/mm3 0.2-1.5 N EOSINOPHIL # (test code = EO#) 0.0 K/mm3 0.0-0.4 N BASOPHIL # (test code = BA#) 0.0 K/mm3 0.0-0.2 N NUCLEATED RBC # (test code = 0.0 K/mm3 0.00-0.01 N NRBC#) MANUAL DIFF REQUIRED (test code NO DIFF/SCN CRITERIA = MDIFF) CBC W/AUTO [id number] 05:57:00 Test Item Value Reference Range Interpretation Comments WHITE BLOOD CELL 12.1 K/mm3 3.5-11.0 H (test code = WBC) RED BLOOD CELL (test 4.13 M/mm3 4.70-6.10 L code = RBC) HEMOGLOBIN (test code 11.3 G/DL 12.3-15.9 L = HGB) HEMATOCRIT (test code 36.0 % 35.8-46.7 N = HCT) MEAN CELL VOLUME 87.2 Fl 86.3-98.9 N (test code = MCV) MEAN CELL HGB (test 27.4 pg 28.9-34.4 L code = MCH) MEAN CELL HGB 31.4 G/DL 32.1-34.5 L CONCETRATION (test code = MCHC) RED CELL DISTRIBUTION 14.0 SD 11.5-14.5 N WIDTH (test code = RDW) PLATELET COUNT (test 247 K/mm3 150-450 N code = PLT) MEAN PLATELET VOLUME 10.20 fL 7.0-9.6 H (test code = MPV) NEUTROPHIL % (test 93.2 % 40-76 H code = NT%) IMMATURE GRANULOCYTE 0.3 % 0.0-5.0 N % (test code = IG%) LYMPHOCYTE % (test 4.1 % 20.5-51.1 L code = LY%) MONOCYTE % (test code 2.3 % 1.7-9.3 N = MO%) EOSINOPHIL % (test 0.0 % 0.0-6.0 N code = EO%) BASOPHIL % (test code 0.1 % 0.0-2.0 N = BA%) NUCLEATED RBC % (test 0.0 /100WBC% 0.0-1.0 N code = NRBC%) NEUTROPHIL # (test 11.2 K/mm3 1.8-7.6 H code = NT#) IMMATURE GRANULOCYTE 0.04 x10 3/uL 0.00-0.03 H # (test code = IG#) LYMPHOCYTE # (test 0.5 K/mm3 0.6-3.0 L code = LY#) MONOCYTE # (test code 0.3 K/mm3 0.2-1.5 N = MO#) EOSINOPHIL # (test 0.0 K/mm3 0.0-0.4 N code = EO#) BASOPHIL # (test code 0.0 K/mm3 0.0-0.2 N = BA#) NUCLEATED RBC # (test 0.0 K/mm3 0.00-0.01 N code = NRBC#) MANUAL DIFF REQUIRED NO DIFF/SCN CRITERIA SLIDE Racheal GODWIN (test code = MDIFF) CONSISTA NT WITH AUTO DIFFERENTI AL. BASIC METABOLIC [id number] 04:42:00 Test Item Value Reference Range Interpretation Comments SODIUM (test code = NA) 142 mmol/L 134-147 N POTASSIUM (test code = 4.0 mmol/L 3.4-5.0 N K) CHLORIDE (test code = 105 mmol/L 100-108 N CL) CARBON DIOXIDE (test 33 mmol/L 21-32 H code = CO2) ANION GAP (test code = 4.0 GAP calc 4.0-15.0 N GAP) GLUCOSE (test code = 142 MG/DL 70-110 H GLU) BLOOD UREA NITROGEN 30 MG/DL 7-18 H (test code = BUN) GLOMERULAR FILTRATION >=60 max estimate >60 RATE (test code = GFR) estGFR CREATININE (test code = 1.1 MG/DL 0.8-1.3 N CREAT) CALCIUM (test code = CA) 8.7 MG/DL 8.5-10.1 N CBC W/AUTO [id number] 08:54:00 Test Item Value Reference Range Interpretation Comments WHITE BLOOD CELL (test code = 5.7 K/mm3 3.5-11.0 N WBC) RED BLOOD CELL (test code = 4.29 M/mm3 4.70-6.10 L RBC) HEMOGLOBIN (test code = HGB) 11.7 G/DL 12.3-15.9 L HEMATOCRIT (test code = HCT) 37.3 % 35.8-46.7 N MEAN CELL VOLUME (test code = 86.9 Fl 86.3-98.9 N MCV) MEAN CELL HGB (test code = MCH) 27.3 pg 28.9-34.4 L MEAN CELL HGB CONCETRATION 31.4 G/DL 32.1-34.5 L (test code = MCHC) RED CELL DISTRIBUTION WIDTH 13.8 SD 11.5-14.5 N (test code = RDW) PLATELET COUNT (test code = 251 K/mm3 150-450 N PLT) MEAN PLATELET VOLUME (test code 10.40 fL 7.0-9.6 H = MPV) NEUTROPHIL % (test code = NT%) 89.6 % 40-76 H IMMATURE GRANULOCYTE % (test 0.5 % 0.0-5.0 N code = IG%) LYMPHOCYTE % (test code = LY%) 8.3 % 20.5-51.1 L MONOCYTE % (test code = MO%) 1.6 % 1.7-9.3 L EOSINOPHIL % (test code = EO%) 0.0 % 0.0-6.0 N BASOPHIL % (test code = BA%) 0.0 % 0.0-2.0 N NUCLEATED RBC % (test code = 0.0 /100WBC% 0.0-1.0 N NRBC%) NEUTROPHIL # (test code = NT#) 5.1 K/mm3 1.8-7.6 N IMMATURE GRANULOCYTE # (test 0.03 x10 3/uL 0.00-0.03 N code = IG#) LYMPHOCYTE # (test code = LY#) 0.5 K/mm3 0.6-3.0 L MONOCYTE # (test code = MO#) 0.1 K/mm3 0.2-1.5 L EOSINOPHIL # (test code = EO#) 0.0 K/mm3 0.0-0.4 N BASOPHIL # (test code = BA#) 0.0 K/mm3 0.0-0.2 N NUCLEATED RBC # (test code = 0.0 K/mm3 0.00-0.01 N NRBC#) MANUAL DIFF REQUIRED (test code NO DIFF/SCN CRITERIA = MDIFF) BASIC METABOLIC [id number] 06:28:00 Test Item Value Reference Range Interpretation Comments SODIUM (test code = NA) 141 mmol/L 134-147 N POTASSIUM (test code = 3.9 mmol/L 3.4-5.0 N K) CHLORIDE (test code = 107 mmol/L 100-108 N CL) CARBON DIOXIDE (test 31 mmol/L 21-32 N code = CO2) ANION GAP (test code = 3.0 GAP calc 4.0-15.0 L GAP) GLUCOSE (test code = 137 MG/DL 70-110 H GLU) BLOOD UREA NITROGEN 20 MG/DL 7-18 H (test code = BUN) GLOMERULAR FILTRATION >=60 max estimate >60 RATE (test code = GFR) estGFR CREATININE (test code = 1.0 MG/DL 0.8-1.3 N CREAT) CALCIUM (test code = CA) 8.3 MG/DL 8.5-10.1 L TROP-I HIGH [id number] 11:03:00 Test Item Value Reference Range Interpretation Comments TROP-I HIGH 26.5 ng/L 0-54 N CAUTION: Units of the SENSITIVITY (test current te st methodology code = TROPIHS) (ng/L) diffe rfrom the prior test meth odology (ng/mL) by a fa ctor of 1000. 99t h Percentile Uppe r Reference Limit (URL):Fem ales: 34 ng/LMales: 54 n g/L In order to distin guish acute elevations of h igh sensitivitytrop onin from other clinical conditions, the FourthUnive rsal Definition of M yocardial Infarction stressesclinica l assessment and the demonstration o f a rise and/orfall in s erial troponin result s above the URL. Results fr om different metho dologies should not be c omparedto one another as quantitative re sults and URLs may varyby method. Completed by Nursing: NOBASIC METABOLIC [id number] 05:29:00 Test Item Value Reference Range Interpretation Comments SODIUM (test code = NA) 142 mmol/L 134-147 N POTASSIUM (test code = 4.5 mmol/L 3.4-5.0 N K) CHLORIDE (test code = 108 mmol/L 100-108 N CL) CARBON DIOXIDE (test 30 mmol/L 21-32 N code = CO2) ANION GAP (test code = 4.0 GAP calc 4.0-15.0 N GAP) GLUCOSE (test code = 105 MG/DL 70-110 N GLU) BLOOD UREA NITROGEN 16 MG/DL 7-18 N (test code = BUN) GLOMERULAR FILTRATION >=60 max estimate >60 RATE (test code = GFR) estGFR CREATININE (test code = 1.1 MG/DL 0.8-1.3 N CREAT) CALCIUM (test code = CA) 8.9 MG/DL 8.5-10.1 N LIPID PROFILE (CORONARY RISK)2022-05-15 05:29:00 Test Item Value Reference Range Interpretation Comments TRIGLYCERIDES (test 93 MG/DL 0-150 N code = TRIG) CHOLESTEROL (test 132 MG/DL 133-200 L code = CHOL) CHOLESTEROL/HDL 2.87 RATIO See_Comment RISK ASSOCIA SUKHDEEP WITH RATIO (test code = CHOL/HDL RATIOS: RISK CHOLHDL) MALE FEMALE1/2 AVERAGE 3.43 3.27AVERAG E 4.97 4.442X AVERAGE 9.55 7.053X AVERAGE 23.39 11.04 NOTE THAT THE REFERENCE VALUE IS RELATED TO RISK LEVELS ASRECOMMENDED B Y [facility] . [Automated mess age] The system which ge nerated this result tra nsmitted reference range : 0-. The reference range was not used to interpr et this result as normal/abnormal . HDL CHOLESTEROL 46 MG/DL 40-59 N (test code = HDL) NON-HDL CHOLESTEROL 86 mg/dL <130 (test code = NHDL) LIPOPROTEIN LDL 80 MG/DL 0-129 N <100 OPTIMAL 100 - 129 (test code = LDL) NEAR OPTIM AL/ABOVE [id number] - 15 9 [id number] - 189 HIGH>OR= 190 VE RY HIGHNOTE THAT G UIDELINES ARE PROVIDED BY NATIONAL CHOLESTEROLEDUC ATION PROGRAM ADULT T REATMENT PANEL III LDL/HDL (test code 1.73 Ratio See_Comment N [Automat ed message] The = LDL/HDL) system which ge nerated this result tra nsmitted reference range : 1.48-3.22 Avg. The reference range was not used to interpr et this result as normal/abnormal . [id number] 05:29:00 Test Item Value Reference Range Interpretation Comments MAGNESIUM (test code = MAG) 2.1 MG/DL 1.8-2.4 N NT PRO-BRAIN NATRIURETIC [id number] 05:29:00 Test Item Value Reference Range Interpretation Comments NT PRO-BRAIN NATRIURETIC PEPTI 9678 PG/ML 0-100 H (test code = PROBNP) CBC W/AUTO [id number] 05:09:00 Test Item Value Reference Range Interpretation Comments WHITE BLOOD CELL (test code = 9.2 K/mm3 3.5-11.0 N WBC) RED BLOOD CELL (test code = 4.87 M/mm3 4.70-6.10 N RBC) HEMOGLOBIN (test code = HGB) 13.4 G/DL 12.3-15.9 N HEMATOCRIT (test code = HCT) 43.8 % 35.8-46.7 N MEAN CELL VOLUME (test code = 89.9 Fl 86.3-98.9 N MCV) MEAN CELL HGB (test code = MCH) 27.5 pg 28.9-34.4 L MEAN CELL HGB CONCETRATION 30.6 G/DL 32.1-34.5 L (test code = MCHC) RED CELL DISTRIBUTION WIDTH 13.9 SD 11.5-14.5 N (test code = RDW) PLATELET COUNT (test code = 258 K/mm3 150-450 N PLT) MEAN PLATELET VOLUME (test code 10.20 fL 7.0-9.6 H = MPV) NEUTROPHIL % (test code = NT%) 77.9 % 40-76 H IMMATURE GRANULOCYTE % (test 0.2 % 0.0-5.0 N code = IG%) LYMPHOCYTE % (test code = LY%) 10.5 % 20.5-51.1 L MONOCYTE % (test code = MO%) 8.0 % 1.7-9.3 N EOSINOPHIL % (test code = EO%) 2.9 % 0.0-6.0 N BASOPHIL % (test code = BA%) 0.5 % 0.0-2.0 N NUCLEATED RBC % (test code = 0.0 /100WBC% 0.0-1.0 N NRBC%) NEUTROPHIL # (test code = NT#) 7.2 K/mm3 1.8-7.6 N IMMATURE GRANULOCYTE # (test 0.02 x10 3/uL 0.00-0.03 N code = IG#) LYMPHOCYTE # (test code = LY#) 1.0 K/mm3 0.6-3.0 N MONOCYTE # (test code = MO#) 0.7 K/mm3 0.2-1.5 N EOSINOPHIL # (test code = EO#) 0.3 K/mm3 0.0-0.4 N BASOPHIL # (test code = BA#) 0.1 K/mm3 0.0-0.2 N NUCLEATED RBC # (test code = 0.0 K/mm3 0.00-0.01 N NRBC#) MANUAL DIFF REQUIRED (test code NO DIFF/SCN CRITERIA = MDIFF) TROP-I HIGH [id number] 16:56:00 Test Item Value Reference Range Interpretation Comments TROP-I HIGH 28.8 ng/L 0-54 CAUTION: Units of the SENSITIVITY (test current te st methodology code = TROPIHS) (ng/L) diffe rfrom the prior test meth odology (ng/mL) by a fa ctor of 1000. 99t h Percentile Uppe r Reference Limit (URL):Fem ales: 34 ng/LMales: 54 n g/L In order to distin guish acute elevations of h igh sensitivitytrop onin from other clinical conditions, the FourthUnive rsal Definition of M yocardial Infarction stressesclinica l assessment and the demonstration o f a rise and/orfall in s erial troponin result s above the URL. Results fr om different metho dologies should not be c omparedto one another as quantitative re sults and URLs may varyby method. Completed by Nursing: NOTROP-I HIGH [id number] 14:24:00 Test Item Value Reference Range Interpretation Comments TROP-I HIGH 21.2 ng/L 0-54 N CAUTION: Units of the SENSITIVITY (test current te st methodology code = TROPIHS) (ng/L) diffe rfrom the prior test meth odology (ng/mL) by a fa ctor of 1000. 99t h Percentile Uppe r Reference Limit (URL):Fem ales: 34 ng/LMales: 54 n g/L In order to distin guish acute elevations of h igh sensitivitytrop onin from other clinical conditions, the FourthUnive rsal Definition of M yocardial Infarction stressesclinica l assessment and the demonstration o f a rise and/orfall in s erial troponin result s above the URL. Results fr om different metho dologies should not be c omparedto one another as quantitative re sults and URLs may varyby method. Completed by Nursing: NOBASIC METABOLIC [id number] 13:09:00 Test Item Value Reference Range Interpretation Comments SODIUM (test code = NA) 143 mmol/L 134-147 N POTASSIUM (test code = 4.0 mmol/L 3.4-5.0 N K) CHLORIDE (test code = 107 mmol/L 100-108 N CL) CARBON DIOXIDE (test 31 mmol/L 21-32 N code = CO2) ANION GAP (test code = 5.0 GAP calc 4.0-15.0 N GAP) GLUCOSE (test code = 116 MG/DL 70-110 H GLU) BLOOD UREA NITROGEN 14 MG/DL 7-18 N (test code = BUN) GLOMERULAR FILTRATION >=60 max estimate >60 RATE (test code = GFR) estGFR CREATININE (test code = 1.0 MG/DL 0.8-1.3 N CREAT) CALCIUM (test code = CA) 8.6 MG/DL 8.5-10.1 N Completed by Nursing: NOTROP-I HIGH [id number] 13:09:00 Test Item Value Reference Range Interpretation Comments TROP-I HIGH 21.3 ng/L 0-54 N CAUTION: Units of the SENSITIVITY (test current te st methodology code = TROPIHS) (ng/L) diffe rfrom the prior test meth odology (ng/mL) by a fa ctor of 1000. 99t h Percentile Uppe r Reference Limit (URL):Fem ales: 34 ng/LMales: 54 n g/L In order to distin guish acute elevations of h igh sensitivitytrop onin from other clinical conditions, the FourthUnive rsal Definition of M yocardial Infarction stressesclinica l assessment and the demonstration o f a rise and/orfall in s erial troponin result s above the URL. Results fr om different metho dologies should not be c omparedto one another as quantitative re sults and URLs may varyby method. Completed by Nursing: DEANDRE RFLX MICR CULT IF [id number] 12:58:00 Test Item Value Reference Range Interpretation Comments UA COLOR (test code = COLU) YELLOW discript YEL/STRAW UA APPEARANCE (test code = CLEAR discript CLEAR APPU) UA GLUCOSE DIPSTICK (test NEGATIVE mg/dL NEG code = DGLUU) UA BILIRUBIN DIPSTICK (test NEGATIVE mg/dL NEG code = BILU) UA KETONE DIPSTICK (test NEGATIVE mg/dL NEG code = KETU) UA SPECIFIC GRAVITY (test 1.010 SG 1.005-1.030 code = SGU) UA BLOOD DIPSTICK (test NEGATIVE mg/DL NEG code = LA) UA PH DIPSTICK (test code = 6.5 pH UNITS 5.0-7.0 NNAMDI) UA PROTEIN DIPSTICK (test NEGATIVE mg/dL NEG code = PROU) UA UROBILINIOGEN DIPSTICK 0.2 mg/dL <2.0 (test code = URO) UA NITRITE DIPSTICK (test NEGATIVE SCREEN NEG code = RYLEE) UA LEUKOCYTE ESTERASE NEGATIVE Leuk/mcL NEGATIVE DIPSTICK (test code = LEUU) UA CULTURE NEEDED? (test Criteria Culture CHK code = UACULT) Indication for culture: RiskForSepsis-no oth srcCOVID 19 Asymptomatic IH AG 2022-05-14 11:56:00 Test Item Value Reference Range Interpretation Comments COVID 19 Asymptomatic NEGATIVE Negative Per ma nufacturer, IH AG (test code = negative results should COVNONPUIAG) be treated aspresumptive a nd, if inconsistent wi th clinical signs andsymptoms or necessary for p atient management, garcía uld betested with a n alternative mol ecular assay. Negative resultsdo not p reclude SARS-CoV-2 infe ction and should not be usedas the sole basis for patient man agement decisions. Nega tive results should be considered in t he context of apat ient's recent exposure s, history, presen ce of clinicalsigns a nd symptoms consis tent with COVID-19. HEPATIC FUNCTION [id number] 11:56:00 Test Item Value Reference Range Interpretation Comments TOTAL PROTEIN (test code = PROT) 7.0 G/DL 6.4-8.2 N ALBUMIN (test code = ALB) 2.8 G/DL 3.4-5.0 L BILIRUBIN TOTAL (test code = BILT) 0.50 MG/DL 0.2-1.2 N BILIRUBIN DIRECT (test code = 0.10 MG/DL 0.00-0.30 N BILD) BILIRUBIN INDIRECT (test code = 0.40 MG/DL 0.2-1.2 N BILIND) SGOT/AST (test code = AST) 16 Unit/L 15-37 N SGPT/ALT (test code = ALT) 18 Unit/L 12-78 N ALKALINE PHOSPHATASE TOTAL (test 120 Unit/L 50-136 N code = ALKP) LACTIC [id number] 11:44:00 Test Item Value Reference Range Interpretation Comments LACTIC ACID (test code = LACT) 1.2 mmol/L 0.4-2.0 N CBC W/O [id number] 11:41:00 Test Item Value Reference Range Interpretation Comments WHITE BLOOD CELL (test code = WBC) 6.9 K/mm3 3.5-11.0 N RED BLOOD CELL (test code = RBC) 4.62 M/mm3 4.70-6.10 L HEMOGLOBIN (test code = HGB) 12.6 G/DL 12.3-15.9 N HEMATOCRIT (test code = HCT) 40.4 % 35.8-46.7 N MEAN CELL VOLUME (test code = MCV) 87.4 Fl 86.3-98.9 N MEAN CELL HGB (test code = MCH) 27.3 pg 28.9-34.4 L MEAN CELL HGB CONCETRATION (test 31.2 G/DL 32.1-34.5 L code = MCHC) RED CELL DISTRIBUTION WIDTH (test 14.0 SD 11.5-14.5 N code = RDW) PLATELET COUNT (test code = PLT) 262 K/mm3 150-450 N MEAN PLATELET VOLUME (test code = 10.40 fL 7.0-9.6 H MPV) - XR CHEST 1 [id number] 11:35:00 [facility] 1935 Sex: M Name: DIMITRIS DOWNEY [facility] : 1935 Age/S: 86 / M [id number] [address] Unit #: [id number] Loc: [place] [address] Phys: LupilloCheko Acct: [id number] Dis Date: Status: REG MIKE #: [phone] Exam Date: 05/14/2022 1052 FAX #: Reason: chest pain EXAMS: CPT: [id number] XR CHEST 1 V 33926 Fluoro Time: DAP (Gy m2): Air Kerma (mGy): REASON FOR EXAM: Chest pain. COMPARISON: No ne. Chest, portable single frontal view. The lungs are well-inflated with prominent interstitial density suggesting pulmonary edema less likely diffuse pneumonia. Some left basilar density could indicate atelectasis or small effusion component Heart size is borderline enlarged. No effusion or pneumotho rax can be seen. Osseous structures appear to be intact. IMPRESSION: Prominent interstitial patternlikely moderate pulmonary edema. Cardiac size upper normal. Location: U19 at 1135 Reported and signed by: Curry Rodriguez M.D. CC: Alber Whitfield MD; Cheko Wesley DO PAGE 1 Signed Report Name: DIMITRIS DOWNEY [place] : 1935 Age/S: 86 / M [address] [address] Unit #: [id number] Loc: [place] [address] Phys: Cheko Wesley DO Acct: [id number] Dis Date: Status: REG ER PHONE #: [phone] Exam Date: 05/14/2022 1052 FAX #: Reason: chest pain EXAMS: CPT: [id number] XR CHEST 1 V 12598 Fluoro Time: DAP (Gy m2): Air Ke rma (mGy): (Continued) Technologist: Beny Rodrigues RT(R)(CT) Trnscb Date/Time: 05/14/2022 (1135) [id number] Orig Print D/T: S: 05/14/2022 (0213) PAGE 2 Signed ReportGLUCOSE BEDSIDE [id number] 11:08:00 Test Item Value Reference Range Interpretation Comments GLUCOSE BEDSIDE TESTING (test code 123 mg/dL 70-110 H = GLUBED) COMPREHENSIVE METABOLIC [id number] 12:38:00 Test Item Value Reference Range Interpretation Comments SODIUM (test code = 147 mmol/L 136-145 H NA) POTASSIUM (test code = 4.3 mmol/L 3.5-5.1 N K) CHLORIDE (test code = 105.0 mmol/L 98-107 N CL) CARBON DIOXIDE (test 31.1 mmol/L 21-32 N code = CO2) GLUCOSE (test code = 96 mg/dL 70-110 N GLU) BLOOD UREA NITROGEN 18 mg/dL 7-18 N (test code = BUN) GLOMERULAR FILTRATION 78.8 >60 Unit o f measure: RATE (test code = GFR) mL/mi n/1.73 [id number] Range:Healthy Adults >90 mL/min/1.73 m2 For Chronic Kidney Disease: Stage II Mild Decrease i n GFR 60-90 Stage III Moderate Decrea se in GFR 30-59 St age IV Severe Decre ase in GFR 15-29 St age V Kidney Failur e <15 CREATININE (test code 0.91 mg/dL 0.55-1.30 N = CREAT) TOTAL PROTEIN (test 7.5 g/dL 6.4-8.2 N code = PROT) ALBUMIN (test code = 3.3 g/dL 3.4-5.0 L ALB) GLOBULIN (test code = 4.2 g/dL 2.2-4.2 N GLOB) ALBUMIN/GLOBULIN RATIO 0.8 0.7-2.0 N (test code = A/G) CALCIUM (test code = 8.8 mg/dL 8.2-10.1 N CA) BILIRUBIN TOTAL (test 0.40 mg/dL 0.2-1.00 N code = BILT) SGOT/AST (test code = 21.0 U/L 15-37 N AST) SGPT/ALT (test code = 25.0 U/L 12-78 N Please note new ALT) normal range. ALKALINE PHOSPHATASE 120 U/L 46-116 H TOTAL (test code = ALKP) CBC W/AUTO [id number] 11:03:00 Test Item Value Reference Range Interpretation Comments WHITE BLOOD CELL (test code = WBC) 7.4 K/mm3 5.7-10.5 N RED BLOOD CELL (test code = RBC) 4.59 M/mm3 4.2-5.4 N HEMOGLOBIN (test code = HGB) 12.9 g/dL 12-16 N HEMATOCRIT (test code = HCT) 40.6 % 37-47 N MEAN CELL VOLUME (test code = MCV) 89 fL 80-98 N MEAN CELL HGB (test code = MCH) 28.1 pg 27-34 N MEAN CELL HGB CONCENTRATION (test 31.8 g/dL 30.8-34.1 N code = MCHC) RED CELL DISTRIBUTION WIDTH (test 13.8 % 11-16 N code = RDW) PLT (test code = PLT) 307 K/mm3 130-400 N MEAN PLATELET VOLUME (test code = 10.4 fL 8.9-12.1 N MPV) NEUTROPHIL % (test code = NT%) 70.9 % 45-70 H LYMPHOCYTE % (test code = LY%) 14.4 % 20-40 L MONOCYTE % (test code = MO%) 9.8 % 3-10 N EOSINOPHIL % (test code = EO%) 3.9 % 1-5 N BASOPHIL % (test code = BA%) 0.7 % 0.0-1.1 N NEUTROPHIL # (test code = NT#) 5.28 K/mm3 2.00-7.50 N LYMPHOCYTE # (test code = LY#) 1.07 K/mm3 1.50-4.00 L MONOCYTE # (test code = MO#) 0.73 K/mm3 0.2-0.8 N EOSINOPHIL # (test code = EO#) 0.29 K/mm3 0.04-0.4 N BASOPHIL # (test code = BA#) 0.05 K/mm3 0.02-0.10 N MANUAL DIFF REQUIRED (test code = NO MANUAL DIFF MDIFF) NUCLEATED RED BLOOD CELL (test 0 % 0-0 N code = NRBC) CBC W Auto Differential panel - [id number] 09:37:00 Test Item Value Reference Range Interpretation Comments white blood cell (test code = 7.4 K/mm3 5.7-10.5 white blood cell) red blood cell (test code = red 4.59 M/mm3 4.2-5.4 blood cell) hemoglobin (test code = 12.9 g/dL 12-16 hemoglobin) hematocrit (test code = 40.6 % 37-47 hematocrit) mean cell volume (test code = mean 89 fL 80-98 cell volume) mean cell HGB (test code = mean 28.1 pg 27-34 cell HGB) mean cell HGB concentration (test 31.8 g/dL 30.8-34.1 code = mean cell HGB concentration) red cell distribution width (test 13.8 % 11-16 code = red cell distribution width) plt (test code = plt) 307 K/mm3 130-400 mean platelet volume (test code = 10.4 fL 8.9-12.1 mean platelet volume) neutrophil % (test code = 70.9 % 45-70 H neutrophil %) lymphocyte % (test code = 14.4 % 20-40 L lymphocyte %) monocyte % (test code = monocyte 9.8 % 3-10 %) eosinophil % (test code = 3.9 % 1-5 eosinophil %) basophil % (test code = basophil 0.7 % 0.0-1.1 %) neutrophil # (test code = 5.28 K/mm3 2.00-7.50 neutrophil #) lymphocyte # (test code = 1.07 K/mm3 1.50-4.00 L lymphocyte #) monocyte # (test code = monocyte 0.73 K/mm3 0.2-0.8 #) eosinophil # (test code = 0.29 K/mm3 0.04-0.4 eosinophil #) basophil # (test code = basophil 0.05 K/mm3 0.02-0.10 #) manual diff required (test code = no manual diff manual diff required) nucleated red blood cell (test 0 % 0-0 code = nucleated red blood cell) performing lab: (test code = performing lab:) [facility] 2000 [facility] - Serum or [id number] 09:37:00 Test Item Value Reference Range Interpretation Comments sodium (test code = sodium) 147 mmol/L 136-145 H potassium (test code = 4.3 mmol/L 3.5-5.1 potassium) chloride (test code = chloride) 105.0 mmol/L 98-107 carbon dioxide (test code = 31.1 mmol/L 21-32 carbon dioxide) glucose (test code = glucose) 96 mg/dL 70-110 blood urea nitrogen (test code = 18 mg/dL 7-18 blood urea nitrogen) glomerular filtration rate (test 78.8 >60 code = glomerular filtration rate) creatinine (test code = 0.91 mg/dL 0.55-1.30 creatinine) total protein (test code = total 7.5 g/dL 6.4-8.2 protein) albumin (test code = albumin) 3.3 g/dL 3.4-5.0 L globulin (test code = globulin) 4.2 g/dL 2.2-4.2 albumin/globulin ratio (test 0.8 0.7-2.0 code = albumin/globulin ratio) calcium (test code = calcium) 8.8 mg/dL 8.2-10.1 bilirubin total (test code = 0.40 mg/dL 0.2-1.00 bilirubin total) SGOT/AST (test code = SGOT/AST) 21.0 U/L 15-37 SGPT/ALT (test code = SGPT/ALT) 25.0 U/L 12-78 alkaline phosphatase total (test 120 U/L 46-116 H code = alkaline phosphatase total) performing lab: (test code = performing lab:) [facility]Presence] in Specimen by Organism specific [id number] 09:37:00 Test Item Value Reference Range Interpretation Comments MRSA surveillance screen (test code see below = MRSA surveillance screen) performing lab: (test code = performing lab:) [facility] [id number] 09:37:00 Test Item Value Reference Range Interpretation Comments mssa PCR surveillance screen (test see below code = mssa PCR surveillance screen) performing lab: (test code = performing lab:) [facility]
[2023-01-16 16:08] LABS: Absolute Lymphocytes (CBC) 0.6 K/uL (0.7-4.9); Hematocrit 36.7 % (39.6-49.0); Lymphocytes % 4.8 % (15.3-44.8); MCV 89.1 fL (80-100); MPV 8.7 fL (7.6-11.3); RBC Red Blood Cell Count 4.12 M/uL (4.33-5.43)
[2023-01-16 16:13] LABS: Protime INR 1.05
--- NOTE | 2023-01-16 16:48 | RAD REPORT ---
EXAM DESCRIPTION: Taisha Single View01/16/2023 4:33 pm CLINICAL HISTORY: Shortness breath COMPARISON: 2020 FINDINGS: Moderate bilateral pulmonary opacities right greater than left Heart is mildly to moderately enlarged. Pacemaker leads in place IMPRESSION: These findings probably represent CHF. Bilateral pneumonia could also have this appearance
[2023-01-16 17:34] LABS: Albumin 3.1 g/dL (3.4-5.0); Bilirubin Direct 0.2 mg/dL (0-0.2); Bilirubin Total 0.5 mg/dL (0.2-1.0); Magnesium 2.3 mg/dL (1.6-2.4); Potassium 3.9 mEq/L (3.5-5.1); Protein, Total 6.9 g/dL (6.4-8.2); Troponin High Sensitivity 24.1 pg/mL (<58.9)
--- NOTE | 2023-01-16 17:51 | ER ---
Nurse's Notes [facility] Name: Severino Sawant Age: 87 yrs Sex: Male : 1935 Arrival Date: 01/16/2023 Time: 15:37 Bed 15 Private MD: Diagnosis: Acute respiratory failure;Heart failure, unspecified;Essential (primary) hypertension Presentation: 01/16 15:50 Chief complaint: EMS states: toned out to home for shortness of breath, started today. 3 EMS reports SpO2 in 70s on room air, increased to 90% on nonrebreather, increased to 98% on CPAP. Coronavirus screen: Vaccine status: Patient reports receiving the 2nd dose of the covid vaccine. Ebola Screen: No symptoms or risks identified at this time. Initial Sepsis Screen: Does the patient meet any 2 criteria? No. Patient's initial sepsis screen is negative. Does the patient have a suspected source of infection? No. Patient's initial sepsis screen is negative. Risk Assessment: Do you want to hurt yourself or someone else? Patient reports no desire to harm self or others. Onset of symptoms was January 16, 2023. Care prior to arrival: Medication(s) given: Nitroglycerin, 0.4 mg SL x 2. 15:50 Method Of Arrival: EMS: [place] [id number] 15:50 Acuity: PHILL 2 eh3 Triage Assessment: 15:54 General: Appears distressed, uncomfortable, Behavior is calm, cooperative, appropriate eh3 for age. Pain: Denies pain. EENT: No signs and/or symptoms were reported regarding the EENT system. Neuro: Level of Consciousness is awake, alert, obeys commands, Oriented to person, place, time, situation. Cardiovascular: Capillary refill < 3 seconds Patient's skin is warm and dry. Respiratory: Airway is patent Respiratory effort is labored, Respiratory pattern is symmetrical, tachypnea Patient placed CPAP: the patient has severe shortness of breath. GI: Abdomen is round non-distended. : No signs and/or symptoms were reported regarding the genitourinary system. Derm: Skin is pink, warm \T\ dry. Historical: - Allergies: 15:54 NKDA; eh3 - Home Meds: 15:54 amlodipine 5 mg tab 1 tab once daily [Active]; doxazosin 2 mg Oral tab [Active]; Lasix eh3 40 mg Oral tab 1 tab once daily [Active]; Augmentin 875-125 mg/5 mL suspension Oral [Active]; Farxiga oral [Active]; Promethazine-DM Oral [Active]; - PMHx: 15:54 Hypertension; CT; neuropathy; Congestive heart failure; eh3 - Immunization history:: Adult Immunizations up to date. - Social history:: Smoking status: unknown. Screenin:57 [facility] ED Fall Risk Assessment (Adult) Score/Fall Risk Level 0 - 2 = Low Risk. Abuse eh3 screen: Denies threats or abuse. Denies injuries from another. Nutritional screening: No deficits noted. Tuberculosis screening: No symptoms or risk factors identified. Assessment: 15:57 Reassessment: No changes from previously documented assessment. See triage assessment. eh3 16:30 Reassessment: Patient appears in no apparent distress at this time. Patient and/or eh3 family updated on plan of care and expected duration. Pain level reassessed. 17:00 Reassessment: Patient appears in no apparent distress at this time. Patient and/or eh3 family updated on plan of care and expected duration. Pain level reassessed. 17:30 Reassessment: Patient appears in no apparent distress at this time. Patient and/or eh3 family updated on plan of care and expected duration. Pain level reassessed. 18:30 Reassessment: Patient appears in no apparent distress at this time. Patient and/or eh3 family updated on plan of care and expected duration. Pain level reassessed. Patient is alert, oriented x 3, equal unlabored respirations, skin warm/dry/pink. 19:30 Reassessment: Patient appears in no apparent distress at this time. Patient and/or eh3 family updated on plan of care and expected duration. Pain level reassessed. Patient is alert, oriented x 3, equal unlabored respirations, skin warm/dry/pink. Vital Signs: 15:50 BP 180 / 70; Pulse 88; Resp 34; Temp 98.2(TE); Pulse Ox 100% on CPAP; Weight 77.11 kg; eh3 Height 5 ft. 10 in. ; 16:30 BP 163 / 61; Pulse 74; Resp 28; Pulse Ox 100% on BiPAP; eh3 17:00 BP 167 / 60; Pulse 69; Resp 25; Pulse Ox 100% on BiPAP; eh3 17:30 BP 171 / 60; Pulse 70; Resp 26; Pulse Ox 99% on BiPAP; eh3 18:30 BP 169 / 60; Pulse 67; Resp 54; Pulse Ox 100% on 2 lpm NC; eh3 19:30 BP 159 / 58; Pulse 66; Resp 23; Pulse Ox 100% on 2 lpm NC; 3 15:50 Body Mass Index 24.39 (77.11 kg, 177.8 cm) [facility] ED Course: 15:41 Patient arrived in ED. 3 15:42 Yordy Salazar PA is PHCP. [facility] 15:42 Prakash Helm DO is Attending Physician. [facility] 15:50 Gely Arce, RN is Primary Nurse. [facility] 15:54 Triage completed. [facility] 15:54 Arm band placed on. 3 15:57 Patient has correct armband on for positive identification. Bed in low position. Call [facility] light in reach. Side rails up X2. Client placed on continuous cardiac and pulse oximetry monitoring. NIBP monitoring applied. 15:57 Maintain EMS IV. Dressing intact. Good blood return noted. Site clean \T\ dry. Gauge \T\ eh 3 site: 20g LAC. 16:06 Troponin HS Sent. mm9 16:06 PT-INR Sent. mm9 16:06 NT PRO-BNP Sent. mm9 16:06 Magnesium Sent. mm9 16:06 LFT's Sent. mm9 16:06 CBC with Diff Sent. mm9 16:06 Basic Metabolic Panel Sent. mm9 16:06 Initial lab(s) drawn, by or, sent to lab. EKG done, by ED staff, reviewed by Prakash Helm DO. 16:07 Warm blanket given. quality assurance monitor on. Pulse ox on. NIBP on. mm9 16:16 Basic Metabolic Panel Sent. mm9 16:16 LFT's Sent. mm9 16:16 Magnesium Sent. mm9 16:16 NT PRO-BNP Sent. mm9 16:16 Troponin HS Sent. mm9 16:35 XRAY Chest (1 view) In Process Unspecified. EDMS 17:50 Curry Ann MD is Hospitalizing Provider. ms3 18:[address] In Process Unspecified. EDMS 18:48 Jorge Cordova MD is Hospitalizing Provider. 7 21:17 No provider procedures requiring assistance completed. Patient admitted, IV remains in eh3 place. Administered Medications: 19:20 Drug: Furosemide IVP 40 mg Route: IVP; Site: right antecubital; 3 21:00 Follow up: Urine output 700 ml; Response: No adverse reaction eh3 19:20 Drug: Rocephin IV 1 grams Route: IV; Rate: calculated rate; Site: right antecubital; 3 19:27 Follow up: Response: No adverse reaction; IV Status: Completed infusion; IV Intake: [id number] 19:25 Drug: AZITHromycin IVPB 500 mg Route: IVPB; Infused Over: 1 hrs; Site: right 3 antecubital; 20:30 Follow up: Response: No adverse reaction; IV Status: Completed infusion; IV Intake: eh3 250ml Medication: 21:17 VIS not applicable for this client. eh3 Intake: 19:27 IV: 50ml; Total: 50ml. eh3 20:30 IV: 250ml; Total: 300ml. eh3 Output: 21:00 Urine: 700ml; Total: 700ml. 3 Outcome: 17:51 Decision to Hospitalize by Provider. ms3 21:17 Admitted to Med/surg accompanied by tech, via wheelchair, room 408. 3 21:17 Condition: good 21:17 Instructed on the need for admit. 21:18 Patient left the ED. 3 Signatures: Dispatcher [employer] EDMS Yordy Salazar PA PA jmm Leal, Jahala, RN RN jl7 Prakash Helm DO DO mo3 Gely Arce RN RN eh3 Caprice Meza mm9 Corrections: (The following items were deleted from the chart) 17:26 16:30 Reassessment: Patient appears in no apparent distress at this time. Patient 3 and/or family updated on plan of care and expected duration. Pain level reassessed. Patient is alert, oriented x 3, equal unlabored respirations, skin warm/dry/pink. eh3 19:16 19:05 Rocephin IV 1 grams IV at calculated rate in right antecubital eh3 3 22:06 16:30 BP 163 / 61; Pulse 74bpm; Resp 28bpm; Pulse Ox 100% CPAP; 3 3 22:06 17:00 BP 167 / 60; Pulse 69bpm; Resp 25bpm; Pulse Ox 100% CPAP; 3 [facility] : 17:30 BP 171 / 60; Pulse 70bpm; Resp 26bpm; Pulse Ox 99% CPAP; 3 3 : 18:30 BP 169 / 60; Pulse 67bpm; Resp 54bpm; Pulse Ox 100% BiPAP; [place] [id number]
--- NOTE | 2023-01-16 17:51 | EDPHYS ---
Physician Documentation [facility] Name: Severino Sawant Age: 87 yrs Sex: Male : 1935 Arrival Date: 01/16/2023 Time: 15:37 Bed 15 Private MD: ED Physician Prakash Helm HPI: 01/16 16:19 This 87 yrs old Male presents to ER via EMS with complaints of shortness of breath. ms3 16:19 87-year-old male with past medical history of hypertension, myocardial infarction, ms3 neuropathy, congestive heart failure presents for shortness of breath that began this morning. On EMS arrival patient's blood pressure was 160/80, 2 sublingual nitroglycerin were given. Patient was placed on CPAP for shortness of breath and crackles in bilateral bases. Patient denies pain at this time.. Historical: - Allergies: 15:54 NKDA; eh3 - Home Meds: 15:54 amlodipine 5 mg tab 1 tab once daily [Active]; doxazosin 2 mg Oral tab [Active]; Lasix eh3 40 mg Oral tab 1 tab once daily [Active]; Augmentin 875-125 mg/5 mL suspension Oral [Active]; Farxiga oral [Active]; Promethazine-DM Oral [Active]; - PMHx: 15:54 Hypertension; NE; neuropathy; Congestive heart failure; eh3 - Immunization history:: Adult Immunizations up to date. - Social history:: Smoking status: unknown. ROS: 16:19 Constitutional: Negative for fever, and chills. Neck: Negative for injury, pain, and ms3 swelling, Cardiovascular: Negative for chest pain, and palpitations. 16:19 MS/Extremity: Negative for injury and deformity, Skin: Negative for injury, rash, and discoloration, Neuro: Negative for headache, weakness, numbness, tingling. 16:19 Constitutional: Positive for 16:19 Respiratory: Positive for cough, shortness of breath. 16:19 All other systems are negative. Exam: 16:19 Constitutional: This is a well developed, well nourished patient who is awake, alert, ms3 and in no acute distress. Head/Face: Normocephalic, atraumatic. Chest/axilla: Normal chest wall appearance and motion. Nontender with no deformity. Cardiovascular: Regular rate and rhythm with a normal S1 and S2. No gallops, murmurs, or rubs. Normal PMI, no JVD. No pulse deficits. Abdomen/GI: Soft, non-tender, with normal bowel sounds. No distension or tympany. No guarding or rebound. No evidence of tenderness throughout. Skin: Warm, dry with normal turgor. Normal color with no rashes, no lesions, and no evidence of cellulitis. MS/ Extremity: Pulses equal, no cyanosis. Neurovascular intact. Full, normal range of motion. 16:19 Respiratory: mild respiratory distress is noted, Respirations: Breath sounds: rales, that are moderate, are heard in the right posterior upper lobe, left posterior lower lobe, right posterior middle lobe and right posterior lower lobe. 18:35 ECG was reviewed by the Attending Physician. hi3 Vital Signs: 15:50 BP 180 / 70; Pulse 88; Resp 34; Temp 98.2(TE); Pulse Ox 100% on CPAP; Weight 77.11 kg; 3 Height 5 ft. 10 in. ; 16:30 BP 163 / 61; Pulse 74; Resp 28; Pulse Ox 100% on BiPAP; eh3 17:00 BP 167 / 60; Pulse 69; Resp 25; Pulse Ox 100% on BiPAP; 3 17:30 BP 171 / 60; Pulse 70; Resp 26; Pulse Ox 99% on BiPAP; eh3 18:30 BP 169 / 60; Pulse 67; Resp 54; Pulse Ox 100% on 2 lpm NC; 3 19:30 BP 159 / 58; Pulse 66; Resp 23; Pulse Ox 100% on 2 lpm NC; 3 15:50 Body Mass Index 24.39 (77.11 kg, 177.8 cm) [facility] MDM: 15:42 Patient medically screened. [facility] 16:21 Differential diagnosis: CHF exacerbation, Chronic Obstructive Pulmonary Disease ms3 Myocardial Infarction pneumonia. 18:35 Data reviewed: vital signs, nurses notes, lab test result(s), EKG, radiologic studies, ms3 plain films, and as a result, I will discharge patient. Consideration of Admission/Observation Patient was admitted/placed on observation. Management of patient was discussed with the following: Hospitalist: Dr Cordova. Will accept if CT chest without contrast does not show PNA.. I considered the following discharge prescriptions or medication management in the emergency department Medications were administered in the Emergency Department. See MAR. Independent interpretation of the following test(s) in the Emergency Department EKG: See my EKG interpretation above ekg monitor tech: rate is 77 beats/min, Rhythm is paced rhythm with no ectopy, Interpretation: normal rate, paced. Counseling: I had a detailed discussion with the patient and/or guardian regarding: the historical points, exam findings, and any diagnostic results supporting the discharge/admit diagnosis, lab results, radiology results, the need for further work-up and treatment in the hospital. 19:30 ED course: Patient on nasal cannula at this time, symptoms improved. Case discussed ms3 with Dr. Cordova and patient to remain at [facility] for treatment. 01/16 15:51 Order name: Basic Metabolic Panel; Complete Time: 17:42 ms3 01/16 15:51 Order name: CBC with Diff; Complete Time: 16:35 ms3 01/16 15:51 Order name: LFT's; Complete Time: 17:42 ms3 01/16 15:51 Order name: Magnesium; Complete Time: 17:42 ms3 01/16 15:51 Order name: NT PRO-BNP; Complete Time: 17:42 ms01/16 15:51 Order name: PT-INR; Complete Time: 16:35 ms01/16 15:51 Order name: Troponin HS; Complete Time: 17:42 ms3 01/16 17:55 Order name: Blood Culture Adult (2) 01/16 17:55 Order name: CMP 01/16 17:55 Order name: Lactate w/ 2H reflex if indic. 01/16 17:55 Order name: Ptt, Activated; Complete Time: 18:52 ms01/16 17:56 Order name: Procalcitonin la01/16 15:51 Order name: XRAY Chest (1 view); Complete Time: 16:59 ms01/16 15:51 Order name: CPAP 01/16 17:57 Order name: Chest Wo Con CT; Complete Time: 18:55 la1 01/16 15:51 Order name: EKG; Complete Time: 15:52 ms01/16 15:51 Order name: Cardiac monitoring; Complete Time: 15:58 ms3 01/16 15:51 Order name: EKG - Nurse/Tech; Complete Time: 16:06 ms3 01/16 15:51 Order name: IV Saline Lock; Complete Time: 15:58 ms3 01/16 15:51 Order name: Labs collected and sent; Complete Time: 15:58 ms3 01/16 15:51 Order name: O2 Per Protocol; Complete Time: 15:58 ms3 01/16 15:51 Order name: O2 Sat Monitoring; Complete Time: 15:58 ms3 01/16 16:16 Order name: Labs - recollect needed: recollect green top hemolyzed; Complete Time: 16:19eb 01/16 17:55 Order name: Accucheck; Complete Time: 17:58 ms3 01/16 17:55 Order name: IV Saline Lock - Large Bore; Complete Time: 17:58 ms3 01/16 17:55 Order name: Vital Signs; Complete Time: 17:58 ms3 EC:35 Rate is 75 beats/min. Rhythm is regular. Left axis deviation noted. Clinical ms3 impression: Paced. Interpreted by me. Reviewed by me. Administered Medications: 19:20 Drug: Furosemide IVP 40 mg Route: IVP; Site: right [facility]; [facility] 21:00 Follow up: Urine output 700 ml; Response: No adverse reaction [facility] 19:20 Drug: Rocephin IV 1 grams Route: IV; Rate: calculated rate; [facility] 19:27 Follow up: Response: No adverse reaction; IV Status: Completed infusion; IV Intake: [id number] 19:25 Drug: AZITHromycin IVPB 500 mg Route: IVPB; Infused Over: 1 hrs; Site: [address]; 20:30 Follow up: Response: No adverse reaction; IV Status: Completed infusion; IV Intake: eh3 250ml Disposition: 18:35 Critical Care:. ms3 Disposition Summary: 01/16/23 17:51 Hospitalization Ordered Hospitalization Status: Inpatient Admission ms3 Condition: Stable ms3 Problem: new ms3 Symptoms: are unchanged ms3 Bed/Room Type: Standard ms3 Provider: Jorge Cordova(01/16/23 18:48) jl7 Location: Telemetry/MedSurg (Inpatient)(01/16/23 20:26) Room Assignment: [facility](01/16/23 20:26) cg Diagnosis - Acute respiratory failure ms3 - Heart failure, unspecified ms3 - Essential (primary) hypertension ms3 Forms: - Medication Reconciliation Form ms3 - SBAR form ms3 Critical care time excluding procedures: 18:35 Critical care time: Bedside Care: 35 minutes, Consultation: 10 minutes. Total time: 45 ms3 minutes Signatures: Dispatcher [employer] EDYordy Quintero PA PA jmm Attema, Lee, RESPIRATORY COORDINATOR-C RESPIRATORY COORDINATOR-Robert1 Makenzie Gage, RN RN cg Ann Gibbs RN RN jl7 Betsy Watson Marcus, DO DO ms3 Gely Arce RN RN eh3 Corrections: (The following items were deleted from the chart) 18:48 17:51 Curry Ann ms3 jl7 20:26 17:51 Intensive Care Unit ms3 cg 20:26 17:51 ms3 cg
[2023-01-16] MEDS ORDERED: NA CHLORIDE 0.9% 250 ML ONE (18:07)
[2023-01-16] MEDS ORDERED: NA CHLORIDE 0.9% 50 ML ONE (18:07)
[2023-01-16] MEDS ORDERED: AZITHROMYCIN 500 MG INJ IVPB ONE (18:07)
[2023-01-16] MEDS ORDERED: CEFTRIAXONE 1000 MG/VIAL ONE (18:07)
[2023-01-16] MEDS ORDERED: FUROSEMIDE 40 MG/4 ML VIAL ONE (18:07)
--- NOTE | 2023-01-16 18:54 | RAD REPORT ---
EXAM DESCRIPTION: CT - Thorax Wo Con - 01/16/2023 6:25 pm CLINICAL HISTORY: Hypoxia COMPARISON: Chest x-ray January 16, 2023 TECHNIQUE: Computed axial tomography of the chest was obtained. Contrast was not requested. All CT scans are performed using dose optimization technique as appropriate and may include automated exposure control or mA/KV adjustment according to patient size. FINDINGS: The evaluation of mediastinum, abel and vessels is limited secondary to lack of IV contras t administration. Moderate bilateral alveolar lung opacities. The heart is moderately enlarged. Mild mediastinal lymphadenopathy probably reactive in nature Moderate bilateral pleural effusions. Trace pericardial effusion IMPRESSION: Moderate bilateral alveolar lung opacities most likely pulmonary edema. Pneumonia probab ly less likely. Moderate bilateral pleural effusions
--- NOTE | 2023-01-16 19:46 | P.HP ---
Certification for Inpatient Patient admitted to: Inpatient With expected LOS: >2 Midnights Patient will require the following post-hospital care: None Practitioner: I am a practitioner with admitting privileges, knowledge of patient current condition, hospital course, and medical plan of care. Services: Services provided to patient in accordance with Admission requirements found in Title 42 Section 412.3 of the Code of Federal Regulations Patient History Date of Service: 01/16/23 Reason for admission: CHF exacerbation History of Present Illness: 87-year-old male with history of chronic systolic congestive heart failure, hypothyroidism, hypertension, CAD who is a patient of Dr. Whitfield presents to the emergency department for shortness of breath/respiratory distress. He was evaluated in the emergency department his labs were significant for leukocytosis white blood cell 13.1 hemoglobin 12.1 hematocrit 36.7 glucose 142 BNP 14,363 CT of the chest noncontrast shows moderate bilateral alveolar lung opacities most likely pulmonary edema. Pneumonia probably less likely. Moderate bilateral pleural effusions. Patient was initially placed on BiPAP for respiratory distress/hypoxia, has improved after IV Lasix, currently on nasal cannula 2 L saturating approximately 95%. He denies fever, chills. Will admit for further evaluation and management of CHF exacerbation. Allergies hydrocodone [From Vicodin] Adverse Reaction (Verified 06/21/20 15:52) Nausea/Vomiting morphine Adverse Reaction (Verified 06/21/20 15:52) hallucinations Home Medications: Amlodipine [Norvasc*] 10 mg PO DAILY 01/01/16 Levothyroxine [Synthroid*] 100 mcg PO [id number] 01/01/16 Pantoprazole [Protonix Tab*] 40 mg PO DAILY 01/01/16 Doxazosin Mesylate [Cardura] 2 mg PO BID 12/03/16 Aspirin Chewable [Aspirin Chewable*] 81 mg PO DAILY tab.chew 12/05/16 Fluticasone/Salmeterol [Advair 250/50 Diskus*] 1 puff IH BID #1 disk 12/05/16 Gabapentin [Gralise] 600 mg PO QID 12/05/16 Zolpidem Tartrate [Ambien Cr] 12.5 mg PO BEDTIME PRN 12/05/16 Furosemide [Lasix*] 40 mg PO DAILY 10/05/17 Nebulizer [Aeroneb Go Nebulizer] 1 each MC DAILY #1 each 10/07/17 - Past Medical/Surgical History Diabetic: No -: htn -: hypothyroidism -: Neuropathy -: CAD -: Skin Cancer -: Chronic systolic congestive heart failure -: back surg x4 -: cholcystectomy -: thyroid radiation -: rotator cuff sx -: Cardiac stent Psychosocial/ Personal History: Patient is at home alone but has family in the area. - Family History mom -: Heart disease Notes: CHF Dad Notes: Parkinson sisters -: Cancer Notes: Skin cancer - Social History Smoking Status: Never smoker Alcohol use: Yes CD- Drugs: No Caffeine use: No Place of Residence: Home Review of Systems 10-point ROS is otherwise unremarkable Respiratory: Cough, Shortness of Breath Physical Examination - Physical Exam General: Alert, In no apparent distress, Oriented x3 HEENT: Atraumatic, PERRLA, Mucous membr. moist/pink, EOMI, Sclerae nonicteric Neck: Supple, 2+ carotid pulse no bruit, No LAD, Without JVD or thyroid abnormality Respiratory: Crackles/rales Cardiovascular: No edema, Regular rate/rhythm (Paced), Normal S1 S2 Capillary refill: <2 Seconds Gastrointestinal: Normal bowel sounds, No tenderness Musculoskeletal: No tenderness Integumentary: No rashes Neurological: Normal speech, Normal strength at 5/5 x4 extr, Normal tone, Normal affect - Studies Laboratory Data (last 24 hrs) 01/16/23 16:39: Sodium 141, Potassium 3.9, BUN 16, Creatinine 1.07, Glucose 142 H, Magnesium 2.3, Total Bilirubin 0.5, AST 18, ALT 25, Alkaline Phosphatase 98 01/16/23 15:54: APTT 29.0 01/16/23 15:54: PT 11.6, INR 1.05 01/16/23 15:54: WBC 13.10 H, Hgb 12.1 L, Hct 36.7 L, Plt Count 225 Assessment and Plan - Plan Assessment: Acute on chronic systolic congestive heart failure S/P pacemaker/defibrillator Acute hypoxic respiratory failure secondary to above Hypertension Hypothyroidism History of CAD Plan: Acute on chronic systolic congestive heart failure S/P pacemaker/defibrillator Continue IV diuresis, repeat chest x-ray in the morning, supplemental oxygen/BiPAP as needed. Home medications continued including Entresto, carvedilol, spironolactone. His lidder reduced his Lasix from 40 mg daily to 20 mg every other day last week. Acute hypoxic respiratory failure secondary to above Continue as above. Hypertension Hypothyroidism History of CAD Continue home medications. DVT PPX: Lovenox Code status: Full Discharge Plan: Home Plan to discharge in: 72 Hours - Advance Directives Does patient have a Living Will: No Does patient have a Durable POA for Healthcare: No - Code Status/Comfort Care Code Status Assessed: Yes (Full code) Critical Care: No Time Spent Managing Pts Care (In Minutes): 70
[2023-01-16 20:03] LABS: Albumin 3.5 g/dL (3.4-5.0); Bilirubin Total 0.7 mg/dL (0.2-1.0); Potassium 3.8 mEq/L (3.5-5.1); Protein, Total 8.3 g/dL (6.4-8.2)
[2023-01-16] MEDS ORDERED: ONDANSETRON 4 MG/2 ML VIAL IV PRN (22:46)
[2023-01-16] MEDS ORDERED: HYDRALAZINE HCL 20 MG/ML VIAL IV PRN (23:15)
[2023-01-16] MEDS ORDERED: AZITHROMYCIN IV 500 MG in NA CHLORIDE 0.9% 250 ML IVPB SCH (23:30)
[2023-01-16] MEDS ORDERED: CEFTRIAXONE 1,000 MG in NA CHLORIDE 0.9% 50 ML IVPB SCH (23:45)
[2023-01-17] MEDS: FUROSEMIDE 40 MG/4 ML VIAL IV SCH ×3 (00:05→16:27)
[2023-01-17] MEDS: SACUBITRIL/VALSARTAN 49/51 MG TAB PO SCH ×3 (00:08→21:01)
[2023-01-17 04:55] LABS: Absolute Lymphocytes (CBC) 0.8 K/uL (0.7-4.9); Hematocrit 32.7 % (39.6-49.0); Lymphocytes % 6.3 % (15.3-44.8); MCV 88.5 fL (80-100); MPV 9.2 fL (7.6-11.3); RBC Red Blood Cell Count 3.69 M/uL (4.33-5.43)
[2023-01-17] MEDS: carvediloL 3.125 MG TAB PO SCH ×2 (05:13→16:28)
[2023-01-17 05:16] LABS: Magnesium 2.3 mg/dL (1.6-2.4); Potassium 3.4 mEq/L (3.5-5.1); Troponin High Sensitivity 35.4 pg/mL (<58.9)
[2023-01-17 06:23] LABS: Specific Gravity 1.009 (1.005-1.030); Urine Bacteria None Seen /HPF (<20); Urine Bilirubin NEGATIVE (Negative); Urine Blood Negative (Negative); Urine Clarity Clear (Clear); Urine Color Light-Yellow (Yellow); Urine Glucose 1+ (Negative); Urine Mucus Slight /HPF (None Seen); Urine Protein NEGATIVE (Negative); Urine RBC None Seen /HPF (None Seen); Urine Urobilinogen Normal (Normal); Urine pH 6.5 (5.0-7.0)
--- NOTE | 2023-01-17 08:05 | P.PN ---
Date of Service: 01/17/23 Subjective: Feeling better today Breathing feels easier this morning complains of persistent cough febrile last night (100.9); now afebrile ROS: 10 point ROS as noted above, otherwise negative Physical Exam: GEN: Alert, oriented, NAD HEENT: Normal conjunctiva, sclera anicteric CV: Regular rate and rhythm, trace edema Pulm: Nonlabored respirations on 2.5L NC, Crackles/rales, +cough ABD: Soft, nontender, nondistended Neuro: Normal speech, normal affect vitals reviewed Problem List: Acute on chronic systolic congestive heart failure S/P pacemaker/defibrillator Severe sepsis secondary to bilateral pneumonia Acute hypoxic respiratory failure secondary acute decompensated congestive heart failure/bilateral pneumonia Hypertension Hypothyroidism History of CAD Plan: Acute on chronic systolic congestive heart failure S/P pacemaker/defibrillator Acute hypoxic respiratory failure secondary to acute decompensated congestive heart failure/bilateral pneumonia reports pacemaker/defibrillator placed ~3 months ago His pipeline dispatcher reduced his Lasix from 40 mg daily to 20 mg every other day last week. Continue lasix Chest CT 01/16 - Moderate bilateral alveolar lung opacities most likely pulmonary edema, +Moderate bilateral pleural effusions repeat CXR 01/17 - Stable findings most suggestive of CHF supplemental oxygen/BiPAP as needed continue Entresto, carvedilol, spironolactone Cardiology consulted Severe sepsis secondary to bilateral pneumonia lactate is 1.2; normotensive Blood cultures pending continue Rocephin/Zithromax Hypertension Hypothyroidism History of CAD Continue home medications VTE: Lovenox Code: Full Dispo: Home ~2 days
--- NOTE | 2023-01-17 08:23 | RAD REPORT ---
EXAM DESCRIPTION: RADChest Single View01/17/2023 6:59 am CLINICAL HISTORY: Eval CHF COMPARISON: Chest Single View dated 01/16/2023; Chest Single View dated 06/14/2021; Chest Pa And Lat ( 2 Views) dated 06/21/2020; Chest Single View dated 11/25/2019 TECHNIQUE: Portable AP view of the chest. FINDINGS: Stable cardiomegaly and stable patchy central and lower lung predominant airspace opacitie s with central interstitial prominence. Consolidation is most pronounced in the retrocardiac region. There may be associated small bilateral effusions. No pneumothorax. Mediastinal contours are unchange d. Left chest wall pacer/ AICD in place. . IMPRESSION: Stable findings most suggestive of congestive heart failure.
[2023-01-17] MEDS ORDERED: POTASSIUM CL SA 10 MEQ TAB PO ONE (09:00)
[2023-01-17] MEDS: SPIRONOLACTONE 25 MG TABLET PO SCH (09:17)
[2023-01-17] MEDS: ENOXAPARIN 40 MG/0.4 ML SQ SCH (09:18)
[2023-01-17] MEDS: CEFTRIAXONE 1,000 MG in NA CHLORIDE 0.9% 50 ML IVPB SCH (09:23)
[2023-01-17] MEDS: AZITHROMYCIN IV 500 MG in NA CHLORIDE 0.9% 250 ML IVPB SCH (10:29)
[2023-01-17] MEDS ORDERED: NA CHLORIDE 0.9% 250 ML ONE (10:36)
--- NOTE | 2023-01-17 15:19 | EKG ---
Test Date: 2023-01-16 Test Time: 16:12:54 [employer]house Florist: KYM MEASUREMENT RESULTS: Intervals: Rate: 75 MA: 146 QRSD: 132 QT: 442 QTc: 493 [place]: P: 72 MA: 146 QRS: -74 T: 98 INTERPRETIVE STATEMENTS: Electronic ventricular pacemaker Compared to ECG 06/14/2021 00:08:40 Sinus bradycardia no longer present Left ventricular hypertrophy no longer present ST (T wave) deviation no longer present Electronically Signed On 01-17-23 15:19:08 CDT by Enrique Suresh
--- NOTE | 2023-01-17 19:25 | CON ---
Date of Consultation: 01/17/2023 Reason For Consultation: Congestive heart failure. History Of Present Illness: An 87-year-old male who has a history of congestive heart failure leonard hernandez, has a defibrillator and pacemaker. He is being followed by product info specialist in [place]. He leonard hernandez was on Lasix 40 mg in the morning and 20 mg at noon. His doctor asked him to stop the [address] stay on the 20 mg every other day. He did that and then he started to retain fluids and became se verely short of breath with significant orthopnea, so he presented to the emergency room. He was serene ated with IV diuretics and he is feeling significantly better. Past Medical History: History of congestive heart failure, hypertension, coronary artery disease, hy pothyroidism, dyslipidemia. Medications: Refer reconciliation sheet for detailed list. Allergies: HYDROCODONE AND MORPHINE. Family History: No premature coronary artery disease or cancer. Social History: He does not smoke or drink. Does not use any drugs. Review of Systems: All systems reviewed are negative except as mentioned in HPI. Physical Examination: Vital Signs: Reviewed. Head and Neck: Pupils are equal, reactive to light. Intact eye movements. There is no JVD. No cer vical lymphadenopathy. Neck: Supple. Thyroid is not enlarged. Lungs: Decreased breathing sounds bilaterally with faint crackles on the bases. No accessory muscle use or muscle retraction. Heart: Irregular. No extra sounds. Abdomen: Soft, nontender. Bowel sounds positive. No organomegaly. No masses or hernia. No rigidi ty or rebound. Extremities: No edema, clubbing, or cyanosis. Intact pulses. Skin: No rashes. Neurologic: Alert, awake, oriented x3. No acute focal deficits appreciated. Investigations: NT proBNP was 14,000 range. Troponins are negative. BUN is 19, creatinine 1.02. H emoglobin is 10.8, and the chest x-ray showed congestive heart failure findings and this was not toda y. Assessment/recommendations: 1.Acute on chronic congestive heart failure exacerbation. The patient's product info specialist is in [place], so ejection fraction is not known. However, he is responding very well to diuresis. At this point, he is getting into his baseline. I will switch him to oral Lasix for the next 24 hours. If he cont inues to do well, the patient can be released on diet. 2.Hypertension. Blood pressure is controlled. Continue current therapy. Thank you for the consult. /RASHAUN Voice ID: [id number] Report ID: [id number]
[2023-01-18 04:27] LABS: Absolute Lymphocytes (CBC) 1.2 K/uL (0.7-4.9); Hematocrit 31.9 % (39.6-49.0); MCV 88.8 fL (80-100); MPV 9.1 fL (7.6-11.3)
[2023-01-18 04:42] LABS: Magnesium 2.2 mg/dL (1.6-2.4); Potassium 3.5 mEq/L (3.5-5.1)
[2023-01-18] MEDS: carvediloL 3.125 MG TAB PO SCH ×2 (05:23→16:18)
--- NOTE | 2023-01-18 07:22 | P.PN ---
Date of Service: 01/18/23 Subjective: Breathing feels much easier today off oxygen since last night ambulated around room with no SOB (on room air) ROS: 10 point ROS as noted above, otherwise negative Physical Exam: GEN: Alert, oriented, NAD HEENT: Normal conjunctiva, sclera anicteric CV: Regular rate and rhythm, trace edema Pulm: Nonlabored respirations on room air, Crackles/rales, +cough ABD: Soft, nontender, nondistended Neuro: Normal speech, normal affect vitals reviewed Problem List: Acute on chronic systolic congestive heart failure S/P pacemaker/defibrillator Severe sepsis secondary to bilateral pneumonia Acute hypoxic respiratory failure secondary acute decompensated congestive heart failure/bilateral pneumonia Hypertension Hypothyroidism History of CAD Plan: Acute on chronic systolic congestive heart failure S/P pacemaker/defibrillator Acute hypoxic respiratory failure secondary to acute decompensated congestive heart failure/bilateral pneumonia reports pacemaker/defibrillator placed ~3 months ago His acetylene operator reduced his Lasix from 40 mg daily to 20 mg every other day last week. Continue lasix Chest CT 01/16 - Moderate bilateral alveolar lung opacities most likely pulmonary edema, +Moderate bilateral pleural effusions repeat CXR 01/17 - Stable findings most suggestive of CHF supplemental oxygen/BiPAP as needed - off oxygen since 01/17 PM continue Entresto, carvedilol, spironolactone Cardiology consulted sepsis secondary to bilateral pneumonia lactate is 1.2; normotensive; +Fever, SIRS criteria; not severe sepsis Blood cultures: no growth yet continue Rocephin/Zithromax, fever curve improving Hypertension Hypothyroidism History of CAD Continue home medications VTE: Lovenox Code: Full Dispo: Home 1-2 days
[2023-01-18] MEDS: CEFTRIAXONE 1,000 MG in NA CHLORIDE 0.9% 50 ML IVPB SCH (08:03)
[2023-01-18] MEDS: ENOXAPARIN 40 MG/0.4 ML SQ SCH (08:03)
[2023-01-18] MEDS: SPIRONOLACTONE 25 MG TABLET PO SCH (08:04)
[2023-01-18] MEDS: SACUBITRIL/VALSARTAN 49/51 MG TAB PO SCH ×2 (08:04→20:22)
[2023-01-18] MEDS: FUROSEMIDE 40 MG/4 ML VIAL IV SCH ×2 (08:04→16:17)
[2023-01-18] MEDS: AZITHROMYCIN IV 500 MG in NA CHLORIDE 0.9% 250 ML IVPB SCH (08:04)
[2023-01-18] MEDS ORDERED: POTASSIUM CL SA 10 MEQ TAB PO ONE (09:00)
[2023-01-19] MEDS: carvediloL 3.125 MG TAB PO SCH ×2 (05:40→17:19)
[2023-01-19 06:23] LABS: Magnesium 2.2 mg/dL (1.6-2.4); Potassium 3.6 mEq/L (3.5-5.1)
[2023-01-19] MEDS ORDERED: PNEUMOCOCCAL VACCINE 0.5 ML IMVAC ONE (08:00)
[2023-01-19] MEDS: FUROSEMIDE 40 MG/4 ML VIAL IV SCH ×2 (08:54→17:19)
[2023-01-19] MEDS: CEFTRIAXONE 1,000 MG in NA CHLORIDE 0.9% 50 ML IVPB SCH (08:54)
[2023-01-19] MEDS: ENOXAPARIN 40 MG/0.4 ML SQ SCH (08:54)
[2023-01-19] MEDS: SPIRONOLACTONE 25 MG TABLET PO SCH (08:55)
[2023-01-19] MEDS: SACUBITRIL/VALSARTAN 49/51 MG TAB PO SCH ×2 (08:55→22:08)
[2023-01-19] MEDS: AZITHROMYCIN IV 500 MG in NA CHLORIDE 0.9% 250 ML IVPB SCH (08:55)
[2023-01-19] MEDS ORDERED: POTASSIUM CL SA 10 MEQ TAB PO ONE (09:00)
--- NOTE | 2023-01-19 12:44 | EKG ---
Test Date: 2023-01-16 Test Time: 16:13:40 Cylinder Handler: KYM MEASUREMENT RESULTS: Intervals: Rate: 75 AL: 146 QRSD: 132 QT: 444 QTc: 495 [place]: P: 66 AL: 146 QRS: -75 T: 99 INTERPRETIVE STATEMENTS: Electronic ventricular pacemaker Compared to ECG 01/16/2023 16:12:54 No significant changes Electronically Signed On 01-19-23 12:37:45 CDT by Jet Tadeo
[2023-01-19 15:39] LABS: SARS-CoV-2 Antigen Rapid Res Negative (Negative)
--- NOTE | 2023-01-19 20:58 | PN ---
Date of Progress Note: 01/19/2023 History Of Present Illness: Mr. Sawant is 87, came in with congestive heart failure. He has a histo ry of AICD, pacemaker placement, hypertension, chronic systolic congestive heart failure, last ejecti on fraction about 20%. He follows up with an MD in [place] for his cardiac care. He recently had hi s defibrillator placed and checked. He came in with a BNP of 14,000. Today, his room air saturation is 94%. Physical Examination: Vital Signs: Stable. Paced rhythm. HEENT: Negative. Neck: Supple. No bruit. Chest: Revealed some basilar rales. Cardiac: Revealed a paced rhythm. He is on antibiotics, Lasix, hydralazine, Lovenox, Coreg, Entresto, and Aldactone. Improved. Chenchoin g well. I will continue his present regimen. We will continue to follow. CARLA/RASHAUN Voice ID: [id number] Report ID: [id number]
[2023-01-19 23:03] VITALS: BMI 22.5
[2023-01-20] MEDS: carvediloL 3.125 MG TAB PO SCH (05:17)
--- NOTE | 2023-01-20 07:33 | RAD REPORT ---
EXAM DESCRIPTION: Taisha Single View01/20/2023 5:21 am CLINICAL HISTORY: Chest pain COMPARISON: January 17, 2023 FINDINGS: Bilateral pulmonary opacities have mostly resolved Heart remains enlarged. Pacemaker leads in place IMPRESSION: CHF has mostly resolved
[2023-01-20] MEDS: ENOXAPARIN 40 MG/0.4 ML SQ SCH (08:46)
[2023-01-20] MEDS: SPIRONOLACTONE 25 MG TABLET PO SCH (08:46)
[2023-01-20] MEDS: FUROSEMIDE 40 MG/4 ML VIAL IV SCH (08:47)
[2023-01-20] MEDS: SACUBITRIL/VALSARTAN 49/51 MG TAB PO SCH (08:47)
[2023-01-20] MEDS: AZITHROMYCIN IV 500 MG in NA CHLORIDE 0.9% 250 ML IVPB SCH (08:48)
[2023-01-20] MEDS: CEFTRIAXONE 1,000 MG in NA CHLORIDE 0.9% 50 ML IVPB SCH (08:48)
[2023-01-20 09:36] VITALS: O2SAT 99
[2023-01-20 11:58] VITALS: BP 165/90; TEMP 98.3
--- NOTE | 2023-01-20 16:19 | PN ---
Date of Progress Note: 01/20/2023 Patient continues to improve. His chest x-ray is markedly improved. Minimal amount of fluid. His r oom air oxygenation is very adequate. He states he can walk much better now. He does have occasiona l deep nonproductive cough presumably due to his borderline and recurrent CHF. He had some type of b acterial and/or lateral infection evidenced by his white count and clinical features. He is markedly improved on the Rocephin and the Lasix IV. We will discharge him on his usual medication plus use o f Lasix 40 mg rather than alternating with 20 on a daily basis with the addition of Keflex 500 mg t.i .d. for a week. Follow up with Dr. Tadeo in 2 weeks and myself in 1 week. HR/MODL Voice ID: [id number] Report ID: [id number]
--- NOTE | 2023-01-20 16:55 | PN ---
Date of Progress Note: 01/19/2023 Patient states he feels somewhat better today, although he is still coughing and has some shortness o f breath with exertion. His vital signs seem stable. He is qualified for home oxygen in the morning and repeat chest x-ray showed fluid is no longer present and he could be discharged. His home medication was the use of Lasix on a daily basis and the addition of Keflex 500 mg t.i.d. for a week. HR/MODL Voice ID: [id number] Report ID: [id number]
--- NOTE | 2023-01-21 12:51 | PN ---
Date of Progress Note: 01/20/2023 Mr. Sawant has been followed for congestive heart failure. Has a history of pacemaker, defibrillator , hypertension, known chronic systolic congestive heart failure with an ejection fraction of 20%. He has been followed by Dr. Pacheco. He has an MD in [place] and [place]. He is presently on an tibiotics, Lasix, hydralazine, Aldactone, Coreg, Entresto. We agree with the excellent present regim en. Last saturation was 94%. Last BNP is decreased. We will continue his present regimen for now. He can go home whenever it is okay with Dr. Cordova. CARLA/RASHAUN Voice ID: [id number] Report ID: [id number]
== END 2023-01-20 13:33 | disposition home or self-care (01) | DRG 871 ==
LOC: ER 15:37 → ERHOLD 19:18 → 4TH 20:51
PROVIDERS: ADMIT Hospitalist; ATTEND Family Medicine
PROC: 5A09457 Assistance with Respiratory Ventilation, 24-96 Consecutive Hours, Continuous Positive Airway Pressure (ICD-10-PCS; principal; 2023-01-16)
DX: A41.9 Sepsis, unspecified organism (principal); I50.23 Acute on chronic systolic (congestive) heart failure; J18.9 Pneumonia, unspecified organism; J96.01 Acute respiratory failure with hypoxia; R65.20 Severe sepsis without septic shock; I11.0 Hypertensive heart disease with heart failure; E03.9 Hypothyroidism, unspecified; I25.10 Atherosclerotic heart disease of native coronary artery without angina pectoris; I25.2 Old myocardial infarction; Z88.5 Allergy status to narcotic agent; Z90.49 Acquired absence of other specified parts of digestive tract; Z79.82 Long term (current) use of aspirin; Z95.810 Presence of automatic (implantable) cardiac defibrillator; Z79.899 Other long term (current) drug therapy; Z79.890 Hormone replacement therapy; Z20.822 Contact with and (suspected) exposure to COVID-19; Z85.828 Personal history of other malignant neoplasm of skin
CPT/HCPCS: 36415; 71045; 71250; 80048; 80053; 80076; 81001; 82947; 83605; 83735; 83880; 84145; 84484; 85025; 85610; 85730; 87040; 87811; 93005; 94660; 94760; 96365; 96375; 99285; J0360; J0696; J1650; J1940; J7050